=== PATIENT | male | born 1950 | race Caucasian/White ===

== ENCOUNTER 2018-02-24 08:30 | Emergency (ER) | payer OTHER ==
[2018-02-24 08:47] VITALS: BP 152/79; PULSE 72; TEMP 98.6; BMI 23.4
[2018-02-24] MEDS ORDERED: KETOROLAC TROMETHAMINE 60 MG/2 ML VIAL IM ONE (08:59)
[2018-02-24] MEDS ORDERED: KETOROLAC TROMETHAMINE 60 MG/2 ML VIAL ONE (09:01)
--- NOTE | 2018-02-24 09:07 | PDOC ---
History of Present Illness - General Chief Complaint: Pain Stated Complaint: FALL/ LT SHOULDER, ARMS PAIN Time Seen by Provider: 02/24/18 08:52 History Source: Patient Exam Limitations: No Limitations - History of Present Illness Initial Comments: 02/24/18 09:00 68-year-old male with no past medical history presented to ED for evaluation of continual and intermittent left arm and left shoulder pain. Patient states about a month ago tripped on a cable causing him to land on his left arm. Patient states seeked medical treatment and had an MRI ordered by Dr. Tolentino orthopedist who recommended physical therapy and was given a cortisone shot last week. Patient states was concerned since the pain continues and is unsure if he should go to physical therapy. Patient denies numbness but states intermittent weakness sharpshooting pain with spastic discomfort to the left forearm. Patient states is unable to perform daily activities such as tying his shoes and fine motor movement secondary to pain. Timing/Duration: intermittent Severity: moderate Associated Symptoms: reports: denies symptoms Past History - Travel Traveled outside of the country in the last 30 days: No - Past Medical History Allergies/Adverse Reactions: Allergies Allergy/AdvReac Type Severity Reaction Status Date / Time No Known Allergies Allergy Verified 02/24/18 08:42 COPD: No HTN: Yes - Surgical History Appendectomy: Yes - Suicide/Smoking/Psychosocial Hx Smoking History: Current every day smoker Have you smoked in the past 12 months: Yes Number of Cigarettes Smoked Daily: 6 Information on smoking cessation initiated: No Patient Lives Alone: No Review of Systems - Review of Systems Able to Perform ROS?: No Constitutional: No: Symptoms Reported Musculoskeletal: Yes: Joint Pain, Muscle Pain Integumentary: No: Symptoms Reported Neurological: Yes: Tingling, Weakness Endocrine: No: Symptoms Reported Hematologic/Lymphatic: No: Symptoms Reported *Physical Exam - Vital Signs Last Vital Signs Temp Pulse Resp BP Pulse Ox 98.6 F 72 17 152/79 96 02/24/18 08:42 02/24/18 08:42 02/24/18 08:42 02/24/18 08:42 02/24/18 08:42 - Physical Exam General Appearance: Yes: Nourished, Appropriately Dressed. No: Apparent Distress HEENT: positive: EOMI Neck: positive: Supple. negative: Decreased range of motion Respiratory/Chest: positive: Lungs Clear, Normal Breath Sounds. negative: Respiratory Distress, Accessory Muscle Use Cardiovascular: positive: Regular Rhythm, Regular Rate. negative: Murmur Extremity: positive: Normal Capillary Refill, Normal Inspection (no deformity no edema). negative: Normal Range of Motion (Unable to perform lateral raise or touch left hand to right shoulder), Tender Integumentary: positive: Normal Color, Warm, Moist Medical Decision Making - Medical Decision Making 02/24/18 09:13 Patient for left arm pain. Patient states took nothing for the pain but was told to follow up with physical therapy on Tuesday but canceled her appointment since he was fearful of going to physical therapy due to his pain. Patient arrives here and no acute distress. Justyna spoke to Dr. thomas II is recommending physical therapy at this time called the physical therapist's office(professional physical therapy ) and states he sent patient over upon ED discharge. Patient given Toradol will discharged. *DC/Admit/Observation/Transfer Diagnosis at time of Disposition: Upper extremity tendinopathy - Discharge Dispostion Disposition: HOME Condition at time of disposition: Good - Referrals Referrals: Jeovany Pascal MD [Staff Physician] - - Patient Instructions Printed Discharge Instructions: DI for Tendinitis, DI for Shoulder Tendinopathy Additional Instructions: At this time I do recommend taking Motrin 600 mg every 8 hours to decrease your discomfort inflammation. Please go directly to the physical therapy office as they are awaiting your arrival. Please also follow up with Dr. Pascal. - Post Discharge Activity
== END 2018-02-24 09:32 | disposition home or self-care (01) ==
LOC: JERFT 08:30
PROC: 3E0233Z Introduction of Anti-inflammatory into Muscle, Percutaneous Approach (ICD-10-PCS; principal; 2018-02-24)
DX: M65.822 Other synovitis and tenosynovitis, left upper arm (principal); F17.210 Nicotine dependence, cigarettes, uncomplicated
CPT/HCPCS: 99281-25

== ENCOUNTER 2018-03-29 09:29 | Day surgery (SDC) | payer OTHER ==
[2018-03-28 08:13] VITALS: BMI 23.0
--- NOTE | 2018-03-29 09:56 | HP ---
[facility] - Chief Complaint Chief Complaint: left shoulder pain - Past Medical History Allergies/Adverse Reactions: Allergies Allergy/AdvReac Type Severity Reaction Status Date / Time No Known Allergies Allergy Verified 03/28/18 08:17 - Current Medications Current Medications: Home Medications Medication Instructions Recorded Amlodipine Besylate 10 mg PO DAILY 03/28/18 Hydrocodone/Acetaminophen [[place] 1 each PO Q6H PRN #40 tablet MDD 4 03/29/18 5-325 Tablet] [facility] Physical Exam - Physical Examination General Appearance: Well Nourished, Well Developed, Alert & Oriented x3 ENT: Clear Lung: Normal air movement Heart: Regular rate & rhythm Extremities: Other (left shoulder- + ttp, decr rom, + neer, + chandler, nvi) Neurological: Intact, Alert, Oriented [facility] Impression/Plan - Impression/Plan Impression: left shoulder impingement Operative Procedure: left shoulder arthroscopy ZOYA GAITAN Date to be Performed: 03/29/18
[2018-03-29] MEDS ORDERED: ROPIVACAINE HCL 0.5% 30ML VIAL ONE (12:25)
[2018-03-29] MEDS ORDERED: DEXAMETHASONE SOD PHOSPHATE/PF 10 MG/ML SDV ONE (12:25)
[2018-03-29] MEDS ORDERED: ROCURONIUM BROMIDE 50 MG/5 ML VIAL ONE (12:27)
[2018-03-29] MEDS ORDERED: PROPOFOL 20 ML ONE (12:27)
[2018-03-29] MEDS ORDERED: MIDAZOLAM HCL 2 MG/2 ML SINGLE DOSE VIAL ONE ×3 (12:27)
[2018-03-29] MEDS ORDERED: KETOROLAC TROMETHAMINE 30 MG/1 ML VIAL ONE (13:18)
[2018-03-29] MEDS ORDERED: ceFAZolin SODIUM 1 GM VIAL IVPB ONE (13:40)
[2018-03-29] MEDS ORDERED: oxyCODONE HCL 5 MG TABLET PO PRN (14:44)
[2018-03-29] MEDS ORDERED: ONDANSETRON 4 MG/2 ML VIAL IVPUSH PRN (14:44)
[2018-03-29] MEDS ORDERED: LACTATED RINGERS SOLUTION 1,000 ML IV SCH (14:45)
[2018-03-29] MEDS ORDERED: NEOSTIGMINE METHYLSULFATE 0.5 MG/ML - 10 ML MDV ONE (14:51)
--- NOTE | 2018-03-29 14:58 | OP ---
Operative Note - Note: Operative Date: 03/29/18 ([facility]) Pre-Operative Diagnosis: left shoulder rct, impingement Operation: left shoulder arthroscopy with RCR, SAD Post-Operative Diagnosis: Same as Pre-op Surgeon: Von Villagran [employer] Consultant: Kash Devine Anesthesiologist/WEBSITE/BLOG EDITOR: Tyrone Gallegos Anesthesia: General Specimens Removed: shavings Estimated Blood Loss (mls): 5 Operative Report Dictated: Yes
[2018-03-29] MEDS ORDERED: ACETAMINOPHEN 1000 MG/100 ML VIAL (NON FORMULARY) IVPB ONE (15:55)
[2018-03-29] MEDS ORDERED: SEVOFLURANE 250 ML BTL ONE (16:02)
[2018-03-29] MEDS ORDERED: DESFLURANE GAS 240 ML BOTTLE IH ONE (16:02)
[2018-03-29] MEDS ORDERED: ACETAMINOPHEN INJECTION 100 ML IVPB ONE (16:06)
[2018-03-29 16:48] VITALS: BP 164/85; PULSE 61; TEMP 97.5
--- NOTE | 2018-03-30 08:23 | OP ---
DATE OF OPERATION: 03/29/2018 PREOPERATIVE DIAGNOSIS: Left shoulder rotator cuff tear and impingement syndrome; adhesive capsulitis. POSTOPERATIVE DIAGNOSIS: Left shoulder rotator cuff tear and impingement syndrome; adhesive capsulitis. PROCEDURE PERFORMED: Left shoulder arthroscopy, subacromial decompression, arthroscopic rotator cuff repair, manipulation under anesthesia. SURGEON: Sheela Donohue MD ASSISTANTS: DONNA Holcomb; DMITRI Allen ANESTHESIA: General. DRAINS: None. COMPLICATIONS: None. BLOOD LOSS: Minimal. BLOOD GIVEN: None. FLUID REPLACEMENT: 700 mL. INDICATIONS: The patient is a 68-year-old male with the preoperative diagnosis of left shoulder rotator cuff tear and impingement syndrome. In addition, the patient has some neurologic abnormality. He was supposed to see a neurologist prior to this procedure, but he did not. The appointment is set up for tomorrow, but clearly he will not be able to attend that. He has significant atrophy globally around the shoulder girdle, including significant atrophy of the supraspinatus and infraspinatus. In addition, the patient states that he has lost a tremendous amount of weight in the last year and a half. I did encourage him to have a full oncology workup. He said he already has and it was negative, but with the combination of significant atrophy around the shoulder girdle and significant weight loss, it is possible there is a large tumor pushing on these nerves. That being said, he assures me that that has already happened and that it was all negative. 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 He understands and will get this worked up later. PROCEDURE: The patient was brought to the operating room, peripheral IV placed, IV sedation given. One gram of IV Ancef was given. General anesthesia was induced. He was placed into the beach-chair position with ample padding throughout. I manipulated the left shoulder in all planes, gaining at least 30 to 40 degrees of forward flexion and abduction, as well as about 10 degrees of internal and external rotation. The left upper extremity then was prepped and draped in sterile fashion. The bony landmarks were marked out with a marking pen. Of note, the patient has significant bony prominence from significant shoulder girdle muscle atrophy. Although the humeral head was not dislocated, it was located quite anterior to its normal location. A posterior portal was established. A diagnostic glenohumeral arthroscopy was performed. The patient was seen to have a shredded labrum. Only mild grade 1 osteoarthritis of the glenoid, none of the humeral head. His rotator cuff had obvious complete full-thickness tears of the supraspinatus. There were some strings of the rotator cuff still intact. There was a lot of synovitis. This was debrided with the ArthroCare wand and the straight shaver, as was the labrum. Next our attention was turned to the subacromial space. A lateral portal was established with a spinal needle under direct visualization. A Green cannula was introduced into the subacromial space. Soft tissue bursectomy was performed. After extensive debridement with the ArthroCare wand, a large subacromial spur was identified. It was taken down with the 5.5-mm oval bur and fine tuned in reverse with the shaver. After extensive bursectomy and bony subacromial decompression, the surface of the rotator cuff was better visualized. Surprisingly, the infraspinatus not only was intact, but looked good. It seemed to be thick and felt quite stable with the back of the ArthroCare wand. The patient had a crescent-shaped tear of the anterior half of the supraspinatus, but this too looked better than expected. The area was cleaned up with the shaver. The bony bed landing point for the anchor was mildly decorticated with the shaver. Under direct visualization, 3 [place] FiberWires were passed through a SwiveLock and the SwiveLock was put down under direct visualization. There was no more room for any other FiberWires or anchors. It came down quite nicely. The rotator cuff moved as a unit with the humeral head. Overall, the rotator cuff looked great. The area was copiously irrigated and washed out. Final photographs were taken. The arthroscopy saline was removed. The arthroscopy portals were closed with 3-0 nylon sutures. The area was then washed and dried, and covered with an Aquacel dressing. The patient was extubated and brought down out of the beach-chair position. He was stable throughout the case. There were no complications. Blood loss was very minimal. He was brought to the ambulatory recovery room in stable condition. SHEELA DONOHUE M.D. [id number]
--- NOTE | 2018-03-31 17:03 | PATH ---
Surgical Pathology Report Patient Name: LISHA BROOKS [facility]. Rec. #: [id number] /Age/Gender: 1950 (Age: 68) / M Account: [id number] Location: [facility] SURGICAL Taken: 03/29/2018 Received: 03/30/2018 Reported: 03/31/2018 Physicians: Von Villagran M.D. Specimen(s) Received LEFT SHOULDER SHAVINGS Clinical History Impingement syndrome left shoulder Final Diagnosis SHOULDER SHAVINGS, LEFT, ARTHROSCOPY AND ROTATOR CUFF REPAIR: FRAGMENTS OF BENIGN CARTILAGE, DENSE FIBROCONNECTIVE TISSUE, ADIPOSE TISSUE, BONE, SYNOVIUM, AND SKELETAL MUSCLE. Electronically Signed Lennie Majano M.D. Gross Description Received in formalin, labeled "left shoulder shavings," is a 4.4 x 4.2 x 0.5 cm. aggregate of mark-yellow soft tissue fragments. 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 03/30/201803/30/2018
== END 2018-03-29 17:25 | disposition home or self-care (01) ==
LOC: JASU-SURG 09:29
PROVIDERS: ATTEND Orthopaedic Surgery
PROC: 0LQ24ZZ Repair Left Shoulder Tendon, Percutaneous Endoscopic Approach (ICD-10-PCS; 2018-03-29)
PROC: 0RNKXZZ Release Left Shoulder Joint, External Approach (ICD-10-PCS; 2018-03-29)
PROC: 0RNK4ZZ Release Left Shoulder Joint, Percutaneous Endoscopic Approach (ICD-10-PCS; principal; 2018-03-29 12:00)
DX: M75.42 Impingement syndrome of left shoulder (principal); M75.102 Unspecified rotator cuff tear or rupture of left shoulder, not specified as traumatic; M75.02 Adhesive capsulitis of left shoulder
CPT/HCPCS: 88304-TC; 94760; J0131

== ENCOUNTER 2018-05-05 06:52 | Observation (INO) | payer OTHER ==
[2018-05-05 07:24] VITALS: BP 138/92; PULSE 40; TEMP 98; BMI 22.3
--- NOTE | 2018-05-05 08:22 | PDOC ---
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 He states he is currently under the care of a neurologist for limb weakness that has not yet been fully explained (particularly in his left arm). The fall from bed was mechanical, however. No LOC, no head injury. He states that he feels weak, fatigued, and having difficulty getting up, which is not his baseline. Denies SOB, cp, leg swelling. Past History - Past Medical History Allergies/Adverse Reactions: Allergies Allergy/AdvReac Type Severity Reaction Status Date / Time No Known Allergies Allergy Verified 05/05/18 07:28 Home Medications: Ambulatory Orders Amlodipine Besylate 10 mg PO DAILY 03/28/18 Hydrocodone/Acetaminophen [[place] 5-325 Tablet] 1 each PO Q6H PRN #40 tablet MDD 4 03/29/18 Anemia: No Asthma: No Cancer: No Cardiac Disorders: No CVA: No COPD: No CHF: No Dementia: No Diabetes: No GI Disorders: No Disorders: No HTN: Yes Hypercholesterolemia: No Liver Disease: No Seizures: No Thyroid Disease: No - Surgical History Appendectomy: Yes - Suicide/Smoking/Psychosocial Hx Smoking History: Current every day smoker Have you smoked in the past 12 months: Yes Number of Cigarettes Smoked Daily: 10 Information on smoking cessation initiated: No 'Breaking Loose' booklet given: 03/29/18 Hx Alcohol Use: No Drug/Substance Use Hx: No Substance Use Type: Alcohol Hx Substance Use Treatment: No Review of Systems - Review of Systems Able to Perform ROS?: Yes Comments:: GENERAL/CONSTITUTIONAL: No fever or chills. +Weakness. HEAD, EYES, EARS, NOSE AND THROAT: No change in vision. No ear pain or discharge. No sore throat. CARDIOVASCULAR: No chest pain or shortness of breath. RESPIRATORY: No cough, wheezing, or hemoptysis. GASTROINTESTINAL: No nausea, vomiting, diarrhea or constipation. GENITOURINARY: No dysuria, frequency, or change in urination. MUSCULOSKELETAL: No joint or muscle swelling or pain. No neck or back pain. SKIN: No rash NEUROLOGIC: No headache, vertigo, loss of consciousness, or change in sensation. +LUE weakness. ENDOCRINE: No increased thirst. No abnormal weight change. HEMATOLOGIC/LYMPHATIC: No anemia, easy bleeding, or history of blood clots. ALLERGIC/IMMUNOLOGIC: No hives or skin allergy. *Physical Exam - Vital Signs Last Vital Signs Temp Pulse Resp BP Pulse Ox 98.0 F 40 L 18 138/92 99 05/05/18 07:21 05/05/18 07:21 05/05/18 07:21 05/05/18 07:21 05/05/18 07:21 - Physical Exam Comments: GENERAL: Awake, alert, and fully oriented, in no acute distress HEAD: No signs of trauma EYES: PERRLA, EOMI, sclera anicteric, conjunctiva clear ENT: Auricles normal inspection, hearing grossly normal, nares patent, oropharynx clear without exudates. Moist mucosa NECK: Normal ROM, supple, no lymphadenopathy, JVD, or masses LUNGS: Breath sounds equal, clear to auscultation bilaterally. No wheezes, and no crackles HEART: Regular rate and rhythm, normal S1 and S2, no murmurs, rubs or gallops ABDOMEN: Soft, nontender, normoactive bowel sounds. No guarding, no rebound. No masses EXTREMITIES: Normal range of motion, no edema. No clubbing or cyanosis. No cords, erythema, or tenderness NEUROLOGICAL: Cranial nerves II through XII grossly intact. Normal speech. Sensation intact. Strength 5/5 RUE, BLE. LUE with no effort against gravity ( chronic per patient). SKIN: Warm, Dry, normal turgor, no rashes or lesions noted. ED Treatment Course - LABORATORY CBC & Chemistry Diagram: 05/05/18 08:47 05/05/18 08:47 Medical Decision Making - Medical Decision Making 05/05/18 11:34 Pt states he does not have a primary care, sees Dr. Oglesby primarily. Case d/w Dr. Oglesby via phone- he states patient is currently being evaluated by neuro as an outpatient, there is suspicion that he may have ALS. We discussed his bradycardia on ED admission, which may explain the new weakness and fatigue. Requested cardiology Dr. Hunter. Also requested admission by Dr. Ramirez. 05/05/18 11:55 Pt accepted for admission by Dr. Ramirez. *DC/Admit/Observation/Transfer Diagnosis at time of Disposition: Bradycardia - Discharge Dispostion Disposition: ELOPED Condition at time of disposition: Stable Decision to Admit order: Yes - Referrals - Patient Instructions - Post Discharge Activity
[2018-05-05 08:56] LABS: BASO % 1.1 % (0-2.0); HEMATOCRIT 39.4 % (35.4-49); HEMOGLOBIN 12.9 GM/dL (11.7-16.9); LYMPH % 15.5 % (8-40); MCH 30.2 pg (25.7-33.7); MCHC 32.8 g/dl (32.0-35.9); MEAN CELL VOLUME 92.1 fl (80-96); MEAN PLT VOLUME 9.3 fl (7.5-11.1); MONO % 8.4 % (3.8-10.2); PLATELET COUNT 194 K/MM3 (134-434); RBC 4.28 M/mm3 (4.00-5.60); RDW 14.5 % (11.9-15.9); WHITE BLOOD COUNT 7.2 K/mm3 (4.0-10.0)
[2018-05-05 09:16] LABS: INR 1.11 (0.83-1.09); PROTHROMBIN TIME (PATIENT) 13.1 SEC (9.7-13.0)
--- NOTE | 2018-05-05 09:16 | EKG ---
Test Reason : Blood Pressure : / mmHG Vent. Rate : 068 BPM Atrial Rate : 068 BPM P-R Int : 126 ms QRS Dur : 116 ms QT Int : 418 ms P-R-T Axes : 053 -72 096 degrees QTc Int : 444 ms SINUS RHYTHM WITH OCCASIONAL PREMATURE VENTRICULAR COMPLEXES LEFT ANTERIOR FASCICULAR BLOCK LEFT VENTRICULAR HYPERTROPHY WITH QRS WIDENING AND REPOLARIZATION ABNORMALITY CANNOT RULE OUT SEPTAL INFARCT , AGE UNDETERMINED ABNORMAL ECG Confirmed by NAHUN AVELAR, ROSY ([id number]) on 05/05/2018 9:15:43 AM Referred By: Confirmed By:ROSY GARNICA MD
[2018-05-05 09:33] LABS: ALBUMIN 3.4 g/dl (3.4-5.0); ALK PHOS 86 U/L (45-117); ANION GAP 7 MMOL/L (8-16); BILIRUBIN,TOTAL 0.4 mg/dL (0.2-1); BLOOD UREA NITROGEN 31 mg/dL (7-18); CALCIUM 8.7 mg/dL (8.5-10.1); CHLORIDE 107 mmol/L (98-107); CO2 27 mmol/L (21-32); CREATININE 1.3 mg/dL (0.55-1.3); GLUCOSE,RANDOM 87 mg/dL (74-106); POTASSIUM 4.5 mmol/L (3.5-5.1); SGOT/AST 55 U/L (15-37); SGPT/ALT 47 U/L (13-61); SODIUM 141 mmol/L (136-145); TOT PROT 6.7 g/dl (6.4-8.2)
[2018-05-05] MEDS ORDERED: ASPIRIN COATED 81 MG TABLET.EC PO SCH (17:45)
--- NOTE | 2018-05-05 17:45 | CON.CARD ---
Consult Consult Specialty:: cardio - History of Present Illness Chief Complaint: s/p fall History of Present Illness: 68 M here for fall. lost his balance when walking in house and fell to floor. denies presyncope or LOC. has fallen 2 other times in past 4 mo, seeing neuro x 2 with dx uncertain per pt and dr cain (dx of ALS being entertained). notes he's had sob at times in the past 4 months--AT REST and sometimes also with exertion. no chest pain. takes a med for bp he says, 10mg--? name denies h/o CAD, CHF - Alcohol/Substance Use Hx Alcohol Use: No - Smoking History Smoking history: Current every day smoker Have you smoked in the past 12 months: Yes Aproximately how many cigarettes per day: 10 Home Medications - Allergies Allergies/Adverse Reactions: Allergies Allergy/AdvReac Type Severity Reaction Status Date / Time No Known Allergies Allergy Verified 05/05/18 07:28 - Home Medications Home Medications: Ambulatory Orders Amlodipine Besylate 10 mg PO DAILY 03/28/18 Hydrocodone/Acetaminophen [[place] 5-325 Tablet] 1 each PO Q6H PRN #40 tablet MDD 4 03/29/18 Vital Signs: Vital Signs Temperature 98.0 F 05/05/18 07:21 Pulse Rate 40 L 05/05/18 07:21 Respiratory Rate 18 05/05/18 07:21 Blood Pressure 138/92 05/05/18 07:21 O2 Sat by Pulse Oximetry (%) 99 05/05/18 07:21 - Other Data Labs, Other Data: CBC, BMP 05/05/18 08:47 05/05/18 08:47 INR, PTT INR 1.11 (0.83-1.09) H 05/05/18 08:47 Troponin, BNP 05/05/18 08:47 Troponin I 0.30 H Troponin, BNP 05/05/18 08:47 Troponin I 0.30 H Laboratory Tests 05/05/18 05/05/18 08:47 08:47 WBC 7.2 Hgb 12.9 Plt Count 194 Sodium 141 Potassium 4.5 Carbon Dioxide 27 BUN 31 H Creatinine 1.3 AST 55 H ALT 47 Troponin I 0.30 H Assessment/Plan ECG 05/05 (8:32): NSR, PVCs. 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 nonsp ST-T lateral leads (no old) 05/05 (8:53): NSR with APCs. o/w no change CXR: clear lungs/pleura tele (in ER) reviewed: NSR, no pause/bradycardia/heart block s/p fall: -describes loss of balance. in setting of ongoing neuro w/u and ? ALS dx per dr cain -check orthostatics -HR 40 in triage, this episode does not sound like bradyarrhythmia. ? on bb at home--need clarify home med regimen -HR currently normal (60s), ECG normal -TSH -tele thus far normal, will continue elev trop: -indeterminate range (0.3), no ischemic sx's, no ischemia on ECG -? hypotensive when fell at home--check orthostatics -serial labs for trend -aspirin 81 for now -atypical sob sx's at rest or activity, chronic/stable for few months. no signs chf, CXR clear. sx does not sound like ischemia--if trop trend flat, and no new sx's here, will defer stress test and outpt f/u with dr cain rec'd HTN: -bp controlled -observe, cont home meds (no AVN blockers for now)
--- NOTE | 2018-05-05 17:47 | HP ---
Admitting History and Physical - Primary Care Physician PCP: Grant Oglesby - Admission History of Present Illness: pt seen / examined in er -- per request of Dr. Oglesby Discussed with er Physician 68 M here for fall. lost his balance when walking in house and fell to floor. denies any cp/sob/ palpitation before that pt being followed by neuro at [facility] for falls-- possible ALS PT ALSO REPORTS FELT SOB AT HOME. Pt seen/ examined in er exam ok / ekg ok but troponin +ve pt denies cp. History Source: Patient Limitations to Obtaining History: No Limitations - Past Medical History Cardiovascular: Yes: HTN - Smoking History Smoking history: Current every day smoker Have you smoked in the past 12 months: Yes Aproximately how many cigarettes per day: 10 - Alcohol/Substance Use Hx Alcohol Use: No Home Medications - Allergies Allergies/Adverse Reactions: Allergies Allergy/AdvReac Type Severity Reaction Status Date / Time No Known Allergies Allergy Verified 05/05/18 07:28 - Home Medications Home Medications: Ambulatory Orders Amlodipine Besylate 10 mg PO DAILY 03/28/18 Hydrocodone/Acetaminophen [[place] 5-325 Tablet] 1 each PO Q6H PRN #40 tablet MDD 4 03/29/18 Review of Systems Findings/Remarks: see [place] Physical Examination Vital Signs: Vital Signs Temperature 98.0 F 05/05/18 07:21 Pulse Rate 40 L 05/05/18 07:21 Respiratory Rate 18 05/05/18 07:21 Blood Pressure 138/92 05/05/18 07:21 O2 Sat by Pulse Oximetry (%) 99 05/05/18 07:21 Constitutional: Yes: No Distress, Anxious Eyes: Yes: Conjunctiva Clear Neck: Yes: Supple Cardiovascular: Yes: Regular Rate and Rhythm Respiratory: Yes: CTA Bilaterally Gastrointestinal: Yes: Soft Extremities: Yes: Other Edema: No Neurological: Yes: Alert, Other (left side weakness-- old per pt) Psychiatric: Yes: Other (anxious) Labs: CBC, BMP 05/05/18 08:47 05/05/18 08:47 Imaging - Results Chest X-ray: Report Reviewed EKG: Report Reviewed Problem List - Problems (1) Fall Code(s): W19.XXXA - UNSPECIFIED FALL, INITIAL ENCOUNTER Qualifiers: Encounter type: initial encounter Qualified Code(s): W19.XXXA - Unspecified fall, initial encounter (2) Troponin level elevated Code(s): R74.8 - ABNORMAL LEVELS OF OTHER SERUM ENZYMES Assessment/Plan pt need to admit to tele/ under observation need to do serial cms discussed with cardiology pt wants to sign out ama strongly advised not to do so -- pt says will thing about it discussed with cardiology also
--- NOTE | 2018-05-10 15:19 | EKG ---
Test Reason : Blood Pressure : / mmHG Vent. Rate : 067 BPM Atrial Rate : 067 BPM P-R Int : 132 ms QRS Dur : 114 ms QT Int : 428 ms P-R-T Axes : 053 -71 088 degrees QTc Int : 452 ms SINUS RHYTHM WITH PREMATURE SUPRAVENTRICULAR COMPLEXES INCOMPLETE RIGHT BUNDLE BRANCH BLOCK LEFT ANTERIOR FASCICULAR BLOCK LEFT VENTRICULAR HYPERTROPHY WITH REPOLARIZATION ABNORMALITY CANNOT RULE OUT SEPTAL INFARCT (CITED ON OR BEFORE 05-MAY-2018) ABNORMAL ECG WHEN COMPARED WITH ECG OF 05-MAY-2018 08:32, PREMATURE VENTRICULAR COMPLEXES ARE NO LONGER PRESENT PREMATURE SUPRAVENTRICULAR COMPLEXES ARE NOW PRESENT QUESTIONABLE CHANGE IN INITIAL FORCES OF SEPTAL LEADS Confirmed by LATASHA COBLY MD ([id number]) on 05/10/2018 3:19:00 PM Referred By: Confirmed By:LATASHA COLBY MD
== END 2018-05-05 18:30 | disposition left against medical advice (07) ==
LOC: JER 06:52 → JERBED 11:55 → UNDOADMOB 11:55 → INTOOBSV 11:55 → JERBED 17:42
PROVIDERS: ADMIT Internal Medicine; ATTEND Internal Medicine
DX: R77.8 Other specified abnormalities of plasma proteins (principal); R00.2 Palpitations; I10 Essential (primary) hypertension; F17.210 Nicotine dependence, cigarettes, uncomplicated; W18.39XA Other fall on same level, initial encounter; Z91.81 History of falling; Y93.01 Activity, walking, marching and hiking; Y92.009 Unspecified place in unspecified non-institutional (private) residence as the place of occurrence of the external cause
CPT/HCPCS: 36415; 71045-TC-FY; 80053; 82550; 82553; 84484; 85025; 85610; 93005; 93010; 99283-25; G0378

== ENCOUNTER 2018-06-06 12:47 | Inpatient (IN) | payer OTHER ==
[2018-06-06] MEDS ORDERED: SODIUM CHLORIDE 1,000 ML IV STA (13:45)
[2018-06-06 14:36] LABS: BASO % 0.8 % (0-2.0); EOS % 0.1 % (0-4.5); HEMATOCRIT 38.2 % (35.4-49); HEMOGLOBIN 13.1 GM/dL (11.7-16.9); LYMPH % 18.7 % (8-40); MCH 30.7 pg (25.7-33.7); MCHC 34.2 g/dl (32.0-35.9); MEAN CELL VOLUME 89.8 fl (80-96); MEAN PLT VOLUME 9.8 fl (7.5-11.1); MONO % 6.3 % (3.8-10.2); NEUT % 74.1 % (42.8-82.8); PLATELET COUNT 245 K/MM3 (134-434); RBC 4.25 M/mm3 (4.00-5.60); RDW 14.6 % (11.9-15.9); WHITE BLOOD COUNT 7.6 K/mm3 (4.0-10.0)
--- NOTE | 2018-06-06 15:00 | PDOC ---
History of Present Illness - General Chief Complaint: Weakness Stated Complaint: WEAKNESS Time Seen by Provider: 06/06/18 13:08 History Source: Patient Exam Limitations: No Limitations - History of Present Illness Initial Comments: 06/06/18 14:55 68-year-old male presents to emergency room with complaints of progressive weakness. Patient has fallen approximately 2 times over the past 2 weeks and went to [place] ED, performed a head CT and collected labs which were -. Upon discharge, a SW prompted a Homecare consultation and this morning when the staff arrived to the home, patient was found to be underweight, fragile, and concerning for progressive ALS which she was recently diagnosed with. Patient was seen by take off back in December but then went to see a neurologist and jenelle Chinchilla who recommended ALS specialist at [facility] but patient did not get to that point of having a consultation. Patient denies chest pain abdominal pain, fever or chills. Patient does state has difficulty swallowing food and is only been eating tuna fish for the past few weeks and drinking minimal fluids. Timing/Duration: getting worse Severity: moderate Associated Symptoms: reports: loss of appetite, weakness Past History - Travel Traveled outside of the country in the last 30 days: No - Past Medical History Allergies/Adverse Reactions: Allergies Allergy/AdvReac Type Severity Reaction Status Date / Time No Known Allergies Allergy Verified 06/06/18 13:12 Home Medications: Ambulatory Orders Aspirin [ASA -] 81 mg PO DAILY 06/06/18 Atorvastatin Ca [Lipitor] 20 mg PO DAILY 06/06/18 Carvedilol [Coreg -] 3.125 mg PO BID 06/06/18 Hydrochlorothiazide [Hctz -] 25 mg PO DAILY 06/06/18 Lisinopril [Prinivil] 10 mg PO DAILY 06/06/18 Prednisone [Deltasone] 40 mg PO DAILY 06/06/18 Anemia: No Asthma: No Cancer: No Cardiac Disorders: No CVA: No COPD: No CHF: No Dementia: No Diabetes: No GI Disorders: No Disorders: No HTN: Yes Hypercholesterolemia: Yes Liver Disease: No Seizures: No Thyroid Disease: No Other medical history: ALS - Surgical History Appendectomy: Yes - Suicide/Smoking/Psychosocial Hx Smoking History: Unknown if ever smoked Have you smoked in the past 12 months: No Number of Cigarettes Smoked Daily: 10 'Breaking Loose' booklet given: 03/29/18 Hx Alcohol Use: No Drug/Substance Use Hx: No Substance Use Type: Alcohol Hx Substance Use Treatment: No Patient Lives Alone: Yes Lives with/in: lives alone Review of Systems - Review of Systems Able to Perform ROS?: Yes Constitutional: Yes: Weakness, Unintentional Wgt. Loss HEENTM: Yes: Difficulty Swallowing. No: Blurred Vision, Tearing Respiratory: No: Symptoms reported Cardiac (ROS): No: Symptoms Reported ABD/GI: Yes: Poor Appetite, Poor Fluid Intake : No: Symptoms Reported Musculoskeletal: Yes: Muscle Weakness Integumentary: No: Symptoms Reported Neurological: Yes: Weakness Endocrine: No: Symptoms Reported Hematologic/Lymphatic: No: Symptoms Reported *Physical Exam - Vital Signs Last Vital Signs Temp Pulse Resp BP Pulse Ox 97.9 F 67 16 147/74 97 06/06/18 13:02 06/06/18 13:02 06/06/18 13:02 06/06/18 13:02 06/06/18 13:02 - Physical Exam General Appearance: Yes: Cachetic, Thin. No: Apparent Distress HEENT: positive: EOMI, HERMINIA, TMs Normal, Pharynx Normal (dry), Muffled/Hoarse voice. negative: Pale Conjunctivae Neck: positive: Supple Respiratory/Chest: positive: Lungs Clear, Normal Breath Sounds. negative: Respiratory Distress, Accessory Muscle Use Cardiovascular: positive: Regular Rhythm, Regular Rate. negative: Murmur Gastrointestinal/Abdominal: positive: Soft. negative: Tenderness Extremity: positive: Normal Capillary Refill. negative: Pedal Edema Integumentary: positive: Dry, Warm Neurologic: positive: Normal Mood/Affect. negative: Motor Strength 5/5 (left upper arm flaccid) Heart Score/ECG Review - History History: Slightly suspicious - Electrocardiogram EKG: Normal - Age Age: >/= 65 - Risk Factors Based on the list above the patient has:: 1-2 risk factors - Troponin Troponin: 1-3x normal limit (Rate 71 sinus rhythm with PVC LVH and repolarization abnormality. Unchanged from previous noted April 2018) - Score Heart Score - Total: 4 - ECG Intrepretation Rhythm: Regular Rhythm ED Treatment Course - LABORATORY CBC & Chemistry Diagram: 06/06/18 14:12 06/06/18 14:12 - ADDITIONAL ORDERS Additional order review: 06/06/18 14:12 RBC 4.25 MCV 89.8 MCHC 34.2 RDW 14.6 MPV 9.8 Neutrophils % 74.1 Lymphocytes % 18.7 D Monocytes % 6.3 Eosinophils % 0.1 D Basophils % 0.8 - RADIOLOGY Radiology Studies Ordered: Category Date Time Status CHEST X-RAY PORTABLE* [RAD] Stat Radiology 06/06/18 13:44 Ordered - Medications Given in the ED: ED Medications Discontinued Medications Generic Name Dose Route Start Last Admin Trade Name Freq PRN Reason Stop Dose Admin Sodium Chloride 1,000 mls @ 1,000 mls/hr 06/06/18 13:45 06/06/18 14:32 Normal Saline - IV 06/06/18 14:44 1,000 mls/hr ASDIR STA Administration Medical Decision Making - Medical Decision Making 06/06/18 14:59 Chief complaint: Progressive weakness and loss of appetite and weight recent diagnosis of ALS Exam, dry-appearing, difficulty forming words and sounds secondary to straining , flaccid left upper arm, noticeable rapid weight loss Plan: Consult the Dr. Valdez, labs, chest x-ray, urine, IV fluids, and will require admission 06/06/18 15:[address] Valdez who states to admit patient and will consult. Case discussed with Dr. Chiqiuta Lopez who admits Dr. Moreno's patients and accepted to [facility] inpatient *DC/Admit/Observation/Transfer Diagnosis at time of Disposition: Weakness, ALS (amyotrophic lateral sclerosis), Weight loss, unintentional - Discharge Dispostion Decision to Admit order: Yes - Referrals - Patient Instructions - Post Discharge Activity
[2018-06-06 15:13] LABS: ALBUMIN 3.6 g/dl (3.4-5.0); ALK PHOS 81 U/L (45-117); ANION GAP 13 MMOL/L (8-16); BILIRUBIN,TOTAL 0.6 mg/dL (0.2-1); BLOOD UREA NITROGEN 54 mg/dL (7-18); CHLORIDE 100 mmol/L (98-107); CO2 28 mmol/L (21-32); CREATININE 1.1 mg/dL (0.55-1.3); GLUCOSE,RANDOM 90 mg/dL (74-106); MAGNESIUM 2.1 mg/dL (1.8-2.4); POTASSIUM 3.9 mmol/L (3.5-5.1); SGOT/AST 59 U/L (15-37); SGPT/ALT 52 U/L (13-61); SODIUM 141 mmol/L (136-145)
[2018-06-06 15:23] LABS: URINE APPEARANCE CLEAR; URINE BILIRUBIN NEGATIVE (<2.0 mg/dL); URINE COLOR LTYELLOW; URINE GLUCOSE (UA) NEGATIVE (NEGATIVE); URINE KETONE NEGATIVE (NEGATIVE); URINE LEUK ESTERASE NEGATIVE (NEGATIVE); URINE NITRITE NEGATIVE (NEGATIVE); URINE PROTEIN 1+ (NEGATIVE); URINE UROBILINOGEN NEGATIVE mg/dL (0.2-1.0)
[2018-06-06 15:30] LABS: EPI CELLS RARE /HPF (FEW); URINE HYALINE CAST 1 /lpf; URINE MUCUS RARE
--- NOTE | 2018-06-06 15:30 | EKG ---
Test Reason : Blood Pressure : / mmHG Vent. Rate : 071 BPM Atrial Rate : 071 BPM P-R Int : 130 ms QRS Dur : 116 ms QT Int : 428 ms P-R-T Axes : 058 -71 099 degrees QTc Int : 465 ms SINUS RHYTHM WITH PREMATURE SUPRAVENTRICULAR COMPLEXES LEFT ANTERIOR FASCICULAR BLOCK LEFT VENTRICULAR HYPERTROPHY WITH QRS WIDENING AND REPOLARIZATION ABNORMALITY SEPTAL INFARCT (CITED ON OR BEFORE 05-MAY-2018) LATERAL INFARCT , AGE UNDETERMINED ABNORMAL ECG Confirmed by Rinku Santos MD ([id number]) on 06/06/2018 3:29:44 PM Referred By: Confirmed By:Rinku Santos MD
[2018-06-06] MEDS ORDERED: ALBUTEROL SO4 0.083% IH SOL 2.5 MG/3 ML VIAL.NEB. NEB ONE (16:56)
[2018-06-07] MEDS ORDERED: SODIUM CHLORIDE FOR INHALATION 3 ML VIAL.NEB IH PRN (11:45)
[2018-06-07 14:58] VITALS: BMI 18.2
--- NOTE | 2018-06-07 16:26 | CONS ---
DATE OF CONSULTATION: 06/08/2018 REFERRING PHYSICIAN: Chiquita Lopez MD The patient is a 68-year-old male, past medical history of initially diagnosed ALS, apparently was diagnosed in December, at the time was referred in ALS specialist clinic but did not go for followup. Admitted to [facility] secondary to generalized weakness, falls at home, and difficulty eating and drinking fluids. The patient states that recently he is getting progressively more dysphagic, difficulty swallowing, as well as getting very short of breath with talking. He also complains of lower extremity weakness to the point where he has recently had multiple falls. He has a history of smoking, quit a few years ago. 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 He also complains of a 50-pound weight loss over the past few months. Past medical history, again, includes hypertension, hypercholesterolemia, ALS. REVIEW OF SYSTEMS: Positive shortness of breath, positive dysphagia, positive generalized weakness, positive weight loss. Current medications include Prinivil, prednisone, Coreg, Lipitor, aspirin, Protonix, normal saline, and hydrochlorothiazide. PHYSICAL EXAMINATION: General: The patient is a cachectic male, awake, alert, and dyspneic. Vital Signs: He is currently afebrile. Blood pressure is 171/72. Respiratory rate 18. O2 saturation is 97% on 2 L. HEENT: Normocephalic, atraumatic. Neck: Supple. Heart: Regular, S1, S2. Chest: Diminished breath sounds bilaterally. Abdomen: Soft. Bowel sounds are positive. Extremities: No cyanosis, edema. LABORATORY DATA: BUN 54, creatinine 1.1, CK is 526, MB fraction 19, AST 59. Chest x-ray: No infiltrates, no effusions. IMPRESSION: 1. Weakness, shortness of breath. Weakness secondary to ALS, progressive. 2. Hypertension. 3. Hyperlipidemia. PLAN: Neuro evaluation, O2, noninvasive positive pressure ventilation at night as well as p.r.n. Monitor peak flow, vital capacity, NIF. Monitor blood pressure. AMOS QUINONES M.D. ANTONIO/[id number] MTDD
--- NOTE | 2018-06-07 16:32 | CONSULT ---
Admitting History and Physical - Primary Care Physician PCP: Chiquita Lopez - Admission History of Present Illness: Per EMR: 68-year-old male presents to emergency room with complaints of progressive weakness. Patient has fallen approximately 2 times over the past 2 weeks and went to [place] ED, performed a head CT and collected labs which were -. Upon discharge, a SW prompted a Homecare consultation and this morning when the staff arrived to the home, patient was found to be underweight, fragile, and concerning for progressive ALS which she was recently diagnosed with. Patient was seen by take off back in December but then went to see a neurologist and jenelle Chinchilla who recommended ALS specialist at [facility] but patient did not get to that point of having a consultation. Patient denies chest pain abdominal pain, fever or chills. Patient does state has difficulty swallowing food and is only been eating tuna fish for the past few weeks and drinking minimal fluids. Timing/Duration: getting worse Severity: moderate Associated Symptoms: reports: loss of appetite, weakness Selected Entries 06/07/18 06/07/18 06:00 15:59 Breakfast 50% Lunch 100% Temperature 97.4 F L 97.9 F Laboratory Tests 06/06/18 14:12 WBC 7.6 Known to me since 04/25/18; seen for out pt MBS History Source: Patient, Medical Record Limitations to Obtaining History: Clinical Condition (memory seems impaired) - Past Medical History Cardiovascular: Yes: HTN - Smoking History Smoking history: Unknown if ever smoked Have you smoked in the past 12 months: No Aproximately how many cigarettes per day: 10 - Alcohol/Substance Use Hx Alcohol Use: No - Social History Usual Living Arrangement: Yes: Alone History - Admission Reason For Visit: AMYOTROPHIC LATERAL SCLEROSIS - Diagnostics X-ray: Report Reviewed - General Mental Status: Alert and Oriented, Awake and Alert, Able to Follow Commands, Forgetful Attention: Intact Ability to Follow Directions: Good Head/Neck Control: Fair - Hearing Hearing: Functional Hearing: Normal Hearing Aide: No Speech Evaluation - Communication Primary Language: YI Communication: Yes: Within Normal Limits Oral Expression Ability: Yes: Mild Impairment - Speech Production Able to Make Needs Known: Yes: Mildly Impaired Intelligibility: Yes: Mildly Impaired - Speech Characteristics Voice Loudness: Mildly Soft/Quiet Voice Pitch: Yes: Normal Voice Phonatory-based Quality: Yes: Dysphonia (mild. Weak, unprotective cough.) Speech Clarity: < 100% Nasal Resonance: Normal Articulation: Yes: Precise Rate of Speech: Intact - Language/Auditory Comprehension Follows: Yes: 2 Stage Simple Commands - Language/Verbal Expression Able to Respond to Simple Queries: Yes: WNL Able to Communicate Wants and Needs: Yes: WNL Functional Communication Status: Yes: WNL - Swallow Evaluation/Bedside Assessment Current Nutritional Intake: Dysphagia Minced, Thin Liquids Oral Secretions: Yes: WFL (expectorates thick white phlegm) Dentition: Yes: Adequate Facial Symmetry at Rest: Symmetrical Facial Symmetry on Retraction: Symmetrical Facial Movement: Controlled Against Resistance Opening: Normal Against Resistance Closing: Normal Pucker Lips: Normal Smile: Normal Lingual Movement: Normal, Symmetric Lingual Speed of Movement: Normal Lingual Movement Strgth Against Opposition: Reduced (mild?) Lingual Movement Characteristics: Normal Velopharyngeal Movement: Normal Laryngeal Elevation: Impaired Laryngeal Movement: Reduced Excursion, Labored,delay initiation, Reduced Velocity Rate of Intake: WFL Bolus Size: Small Labial Seal: WFL Chewing: Impaired Oral Prep Time: Increased A-P Transit: Impaired Pocketing: None Timing of Swallow: Delayed Coughing/Throat Clear: Yes (intermittent on thin liquid. c/o stasis with Ensure. Weak,unprotectivecough) Change in Voice: No Recommendations - Speech Evaluation, Impression/Plan Impression: Pt with dx of ALS, seen for out pt MBS on 04/25/18, which he does not recall. 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 Significant weight loss. Suspect increase in severity of dysphagia with increased pharyngeal residue and intermittent aspiration. Pt lives alone. - Disposition Discharge to: Longterm Facility - Dysphagia Impressions/Plan Swallowing Skills: Impaired Dysphagia Impressions: Mild Impairment, Moderate Impairment, Suspect Aspiration *Silent aspiration: cannot be R/O at bedside Dysphagia Treatment Plan: Small Bites, Chin Tuck/Down, 1/2 tsp. at a time, Elevate HOB during feed, Other (2 hard swallows per half tsp) Recommendations: Neuro Consult, Palliative Care (Pt is a full code. What are pt' s end of life wishes?), Other (Consider PEG insertion to supplem,ent PO intake.) - Recommendations Diet Consistency: Dysphagia Pureed (extra gravy. Alternate with sip of liquid.) Medication Administration: Crushed with applesauce Liquids: Thruston Thick, Other (Free water protocol- Mouthcare followed by careful sips of thin water b/n meals.) Supplement: Other (Ensure compact 4 times daily)
--- NOTE | 2018-06-07 17:38 | HP ---
Admitting History and Physical - Primary Care Physician PCP: Grant Oglesby - Admission Chief Complaint: weakness History of Present Illness: ER HISTORY 06/06/18 14:55 68-year-old male presents to emergency room with complaints of progressive weakness. Patient has fallen approximately 2 times over the past 2 weeks and went to [place] ED, performed a head CT and collected labs which were -. Upon discharge, a SW prompted a Homecare consultation and this morning when the staff arrived to the home, patient was found to be underweight, fragile, and concerning for progressive ALS which she was recently diagnosed with. Patient was seen by take off back in December but then went to see a neurologist and jenelle Chinchilla who recommended ALS specialist at [facility] but patient did not get to that point of having a consultation. Patient denies chest pain abdominal pain, fever or chills. Patient does state has difficulty swallowing food and is only been eating tuna fish for the past few weeks and drinking minimal fluids. Pt seen by me on the floors- Noted previous MBS done here in Hospital , PFT He has SOB on ambulation, no cough or chest pain. Progresive weight loss. 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 He has left arm weakness for 8 weeks . Was in [facility] 3 days ago for SOB-- was sent home with PO prednisone and inhalers. He lives alone, no family, has frequent falls. History Source: Patient, Transfer Record Limitations to Obtaining History: No Limitations - Past Medical History Cardiovascular: Yes: HTN - Smoking History Smoking history: Unknown if ever smoked Have you smoked in the past 12 months: No Aproximately how many cigarettes per day: 10 - Alcohol/Substance Use Hx Alcohol Use: No Home Medications - Allergies Allergies/Adverse Reactions: Allergies Allergy/AdvReac Type Severity Reaction Status Date / Time No Known Allergies Allergy Verified 06/06/18 13:12 - Home Medications Home Medications: Ambulatory Orders Aspirin [ASA -] 81 mg PO DAILY 06/06/18 Atorvastatin Ca [Lipitor] 20 mg PO DAILY 06/06/18 Carvedilol [Coreg -] 3.125 mg PO BID 06/06/18 Hydrochlorothiazide [Hctz -] 25 mg PO DAILY 06/06/18 Lisinopril [Prinivil] 10 mg PO DAILY 06/06/18 Prednisone [Deltasone] 40 mg PO DAILY 06/06/18 Review of Systems - Review of Systems Constitutional: reports: Weakness Respiratory: reports: SOB Physical Examination Vital Signs: Vital Signs Temperature 97.9 F 06/07/18 15:59 Pulse Rate 85 06/07/18 15:59 Respiratory Rate 18 06/07/18 15:59 Blood Pressure 107/56 L 06/07/18 15:59 O2 Sat by Pulse Oximetry (%) 97 06/06/18 22:00 Constitutional: Yes: No Distress, Calm Cardiovascular: Yes: Regular Rate and Rhythm Respiratory: Yes: Diminished Gastrointestinal: Yes: Normal Bowel Sounds, Soft. No: Tenderness Extremities: Yes: Other (left arm weak- no strength) Edema: No Labs: CBC, BMP 06/06/18 14:12 06/06/18 14:12 Imaging - Results Chest X-ray: Image Reviewed EKG: Image Reviewed Problem List - Problems (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 Assessment/Plan PLAN Progressive disease Lives alone Walks with a cane, but has become more weak Fall precautions Neurology eval Pulmonary eval-- has severe restrictive disease on PFT Swallow evaluation change diet to chopped DVT prophylaxis
--- NOTE | 2018-06-07 19:27 | CONSULT ---
Consult - text type - Consultation Consultation Note: NEUROLOGY CONSULTATION is greatly appreciated: This 68 yo RH, man with HTN, depression and smoking lives alone. He was seen by me 01/03/18 with left hand weakness attributed to a fall. At that time he had 22 lb weight loss since the of his 1 year prior, attributed to depression. The patient never returned for his EMG and was lost to follow-up. Apparently saw Dr. Lelo Navas for progressive weakness and EMG did suggest A.L.S. Now admitted after multiple falls with > 50 lb weight loss, progressive weakness and SE=241 IU. Pt notes progressive gait dysfunction, difficulty swallowing and inability to raise a utensil to his mouth with either hand. ++ Progressive dyspnea at rest. SHARIF: Thin. No bruits. RR>24 at rest using accessory muscles. NEURO: Awake, alert. Dysarthric speech. CN: Full EOM's. Tongue sl atrophic. + fasciculations. Decreased lateral strength, protrusion and gag. Neck flexion 4-/5. Extension 4/5 Motor: Deltoids 2/5 B/L. Biceps 3/5 R, 2/5 L. Triceps 3/5 R, 2/5 L. R hand 4-/5, left hand 2/5 with severe atrophy. Course fasciculations left biceps. Legs 4-/5 proximally and 5/5 distally. Diffusely HYPERreflexic. B/L Bab[place]is. Coord: No obvious dystaxia. Sensory: Min decreased Vib in feet. IMP: Progressive weakness and atrophy with both UPPER and LOWER motor neuron signs suggesting Amyotrophic lateral Sclerosis (ALS). Plan: To review Prior EMG/ NCS To review prior MRI scans of brain and c-spine if available (Upright imaging-Pt is claustrophobic). PM&R evaluation Check B12, ESR, CRP, Lyme. PFT's and pulmonary w/u as per Dr. Guaman. Include inspiratory and expiratory forces. Might start with BIPAP at night. May need SNF level of care at this Juncture. Will follow with you. Thank you very much, Jeovany Valdez MD
[2018-06-07] MEDS: HEPARIN NA (PORCINE) 5,000 UNITS/ML 1ML VIAL SQ SCH (21:25)
[2018-06-07] MEDS: CARVEDILOL 3.125 MG TABLET (FP) PO SCH (21:25)
[2018-06-07] MEDS: ATORVASTATIN CA 20 MG TABLET (FP) PO SCH (21:28)
[2018-06-08] MEDS ORDERED: PT OWN MED DRAWER 7, Y5N ONE ×2 (09:41→21:07)
[2018-06-08] MEDS: CARVEDILOL 3.125 MG TABLET (FP) PO SCH ×2 (09:43→21:54)
[2018-06-08] MEDS: PANTOPRAZOLE 40 MG TABLET (FP) PO SCH (09:43)
[2018-06-08] MEDS: LISINOPRIL 10 MG TABLET (FP) PO SCH (09:43)
[2018-06-08] MEDS: HYDROCHLOROTHIAZIDE 25 MG TABLET (FP) PO SCH (09:43)
[2018-06-08] MEDS: predniSONE 20 MG TABLET (UD) PO SCH (09:43)
[2018-06-08] MEDS: ASPIRIN 81 MG CHEWABLE TABLETS PO SCH (09:43)
[2018-06-08] MEDS: HEPARIN NA (PORCINE) 5,000 UNITS/ML 1ML VIAL SQ SCH ×2 (09:44→21:54)
--- NOTE | 2018-06-08 09:54 | PN ---
Progress Note (short form) - Note Progress Note: weakness started using BIPAP on NC PRN Vital Signs - 24 hr 06/07/18 06/07/18 06/07/18 15:59 16:55 21:00 Temperature 97.9 F 97.4 F L Pulse Rate 85 789 H Respiratory 18 20 20 Rate Blood Pressure 107/56 L 154/85 O2 Sat by Pulse 97 Oximetry (%) 06/07/18 06/08/18 22:00 06:44 Temperature 97.5 F L 97.5 F L Pulse Rate 60 66 Respiratory 20 Rate Blood Pressure 149/71 149/91 O2 Sat by Pulse Oximetry (%) Current Medications Generic Name Dose Route Start Last Admin Trade Name Freq PRN Reason Stop Dose Admin Aspirin 81 mg 06/08/18 10:00 06/08/18 09:43 Asa - PO 81 mg DAILY STEFFANIE Administration Atorvastatin Calcium 20 mg 06/07/18 22:00 06/07/18 21:28 Lipitor - PO 20 mg HS STEFFANIE Administration Carvedilol 3.125 mg 06/07/18 22:00 06/08/18 09:43 Coreg - PO 3.125 mg BID STEFFANIE Administration Heparin Sodium (Porcine) 5,000 unit 06/07/18 22:00 06/08/18 09:44 Heparin - SQ 5,000 unit BID STEFFANIE Administration Hydrochlorothiazide 25 mg 06/08/18 10:00 06/08/18 09:43 Hctz - PO 25 mg DAILY STEFFANIE Administration Lisinopril 10 mg 06/08/18 10:00 06/08/18 09:43 Prinivil PO 10 mg DAILY STEFFANIE Administration Pantoprazole Sodium 40 mg 06/08/18 10:00 06/08/18 09:43 Protonix - PO 40 mg DAILY STEFFANIE Administration Prednisone 20 mg 06/08/18 10:00 06/08/18 09:43 Deltasone - PO 20 mg DAILY STEFFANIE Administration Sodium Chloride 3 ml 06/07/18 11:45 Normal Saline For Inhalation - IH Q6H PRN COUGH s1 S2 RRR Lungs decreased ABd- soft, NT No edema weakness left arm PLAN Neurology follow up noted palliative care eval-- pt needs advance directives avoid aspiration taper prednisone Problem List - Problems (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
--- NOTE | 2018-06-08 10:16 | CON.PULM ---
Consult Consult Specialty:: PULMONARY Referred by:: TOMAS Reason for Consultation:: ALS/ASPIRATION RISK/ - History of Present Illness Chief Complaint: ABD PAIN WEAKNESS/ WEIGHT LOSS/ASPIRATION RISK History of Present Illness: 68-year-old male presents to emergency room with complaints of progressive weakness. Patient has fallen approximately 2 times over the past 2 weeks and went to [place] ED, performed a head CT and collected labs which were -. Upon discharge, a SW prompted a Homecare consultation and this morning when the staff arrived to the home, patient was found to be underweight, fragile, and concerning for progressive ALS which she was recently diagnosed with. Patient has been noncompliant with f/u and treatment for ALS.Patient denies chest pain, fever or chills. Patient does state has difficulty swallowing food and is only been eating tuna fish for the past few weeks and drinking minimal fluids. He has weight loss and now is complaining of abd pain and is requesting pain medication . 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 No: Dementia Cardio/Vascular: Yes: HTN Pulmonary: Yes: COPD Gastrointestinal: No: Ascites Hepatobiliary: No: Cirrhosis Renal/: No: Renal Failure Heme/Onc: No: Anemia Psych: Yes: Depression Musculoskeletal: No: Paraplegia Rheumatology: No: Fibromyalgia Endocrine: No: Diabetes Mellitus - Past Surgical History Additional Surgical History: SHOULDER ARTHROSCOPIC DECOMPRESSION - Alcohol/Substance Use Hx Alcohol Use: No History of Substance Use: reports: None - Smoking History Smoking history: Current every day smoker Have you smoked in the past 12 months: Yes Aproximately how many cigarettes per day: 10 - Social History Usual Living Arrangement: Alone ADL: Independent Place of : [facility] History of Recent Travel: No Home Medications - Allergies Allergies/Adverse Reactions: Allergies Allergy/AdvReac Type Severity Reaction Status Date / Time No Known Allergies Allergy Verified 06/06/18 13:12 - Home Medications Home Medications: Ambulatory Orders Aspirin [ASA -] 81 mg PO DAILY 06/06/18 Atorvastatin Ca [Lipitor] 20 mg PO DAILY 06/06/18 Carvedilol [Coreg -] 3.125 mg PO BID 06/06/18 Hydrochlorothiazide [Hctz -] 25 mg PO DAILY 06/06/18 Lisinopril [Prinivil] 10 mg PO DAILY 06/06/18 Prednisone [Deltasone] 40 mg PO DAILY 06/06/18 Family Disease History - Family Disease History Family History: Unremarkable Review of Systems - Review of Systems Constitutional: reports: Lethargy, Loss of Appetite, Unintentional Wgt. Loss, Weakness. denies: Fever, Night Sweats Eyes: denies: Blind Spots HENT: reports: Difficult Swallowing. denies: Hearing Loss, Nasal Congestion Neck: denies: Decreased ROM Cardiovascular: denies: Chest Pain Respiratory: reports: Cough, Exercise Intolerance. denies: Hemoptysis, Wheezing Gastrointestinal: reports: Abdominal Pain, Constipation Genitourinary: reports: No Symptoms Breasts: reports: No Symptoms Reported Musculoskeletal: reports: Muscle Weakness Integumentary: reports: No Symptoms Neurological: reports: Pre-Existing Deficit, Unsteady Gait, Weakness Endocrine: reports: No Symptoms Psychiatric: reports: Depression Physical Exam Vital Sings: Vital Signs Temperature 97.5 F L 06/08/18 06:44 Pulse Rate 66 06/08/18 06:44 Respiratory Rate 20 06/08/18 06:44 Blood Pressure 149/91 06/08/18 06:44 O2 Sat by Pulse Oximetry (%) 97 06/07/18 21:00 Constitutional: Yes: Anxious, Thin Eyes: Yes: EOM Intact HENT: Yes: Normocephalic Neck: Yes: Trachea Midline Cardiovascular: Yes: Regular Rate and Rhythm, S1, S2 Respiratory: Yes: CTA Bilaterally Gastrointestinal: Yes: Normal Bowel Sounds Renal/: Yes: WNL Breast(s): Yes: WNL Musculoskeletal: Yes: Muscle Weakness Edema: No Neurological: Yes: Pre-Existing Deficit, Other (ALS WORKUP) Labs: CBC, BMP 06/06/18 14:12 06/06/18 14:12 Imaging - Results Chest X-ray: Report Reviewed, Image Reviewed Cat Scan: Report Reviewed Problem List - Problems (1) Abdominal pain Code(s): R10.9 - UNSPECIFIED ABDOMINAL PAIN (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 MBS DONE 04/2018 SHOWED SILENT ASPIRATION/ PFT'S DONE 05/04 REVEALED FVC 57% PREDICTED/MVV/SNIF (SNIFF NASAL INSP FORCE) NOT PERFORMED AT THAT TIME. NOW COMPLAINING OF ABD PAIN AND PROGRESSIVE WEIGHT LOSS, OF NOTE IS THAT PATIENT HAD LEFT ARTHROSCOPIC SHOULDER DECOMPRESSION 03/2018 AND WAS INSTRUCTED TO TAKE MOTRIN 600MG Q [address] ABD DONE 04/2018 SHOWS THICKENED GASTRIC ANTRUM AND PROXIMAL DUODENUM FOR WHICH EGD INVESTIGATION WAS SUGGESTED. MOVING FORWARD FROM A RESPIRATORY STANDPOINT VITAL CAPACITY ALONG WITH MVV AND SNIF (MOST SENSITIVE TEST TO FOLLOW) SHOULD BE PERFORMED Q 3MONTHS TO DETERMINE RISK FOR RESPIRATORY FAILURE. WOULD ALSO OBTAIN A BASELINE ABG. WILL FOLLOW Yasmine KOENIG MD
[2018-06-08 11:45] LABS: ALBUMIN 3.8 g/dl (3.4-5.0); ALK PHOS 86 U/L (45-117); ANION GAP 11 MMOL/L (8-16); BILIRUBIN,TOTAL 0.9 mg/dL (0.2-1); BLOOD UREA NITROGEN 45 mg/dL (7-18); CALCIUM 9.1 mg/dL (8.5-10.1); CHLORIDE 98 mmol/L (98-107); CO2 30 mmol/L (21-32); CREATININE 1.4 mg/dL (0.55-1.3); GLUCOSE,RANDOM 128 mg/dL (74-106); POTASSIUM 4.2 mmol/L (3.5-5.1); SGOT/AST 59 U/L (15-37); SGPT/ALT 53 U/L (13-61); SODIUM 139 mmol/L (136-145); TOT PROT 7.2 g/dl (6.4-8.2)
[2018-06-08] MEDS: ATORVASTATIN CA 20 MG TABLET (FP) PO SCH (21:54)
[2018-06-09] MEDS ORDERED: PT OWN MED DRAWER 7, Y5N ONE (01:49)
[2018-06-09] MEDS: PANTOPRAZOLE 40 MG TABLET (FP) PO SCH (09:57)
[2018-06-09] MEDS: HYDROCHLOROTHIAZIDE 25 MG TABLET (FP) PO SCH (09:57)
[2018-06-09] MEDS: predniSONE 20 MG TABLET (UD) PO SCH (09:57)
[2018-06-09] MEDS: CARVEDILOL 3.125 MG TABLET (FP) PO SCH ×2 (09:57→21:25)
[2018-06-09] MEDS: LISINOPRIL 10 MG TABLET (FP) PO SCH (09:57)
[2018-06-09] MEDS: ASPIRIN 81 MG CHEWABLE TABLETS PO SCH (09:57)
[2018-06-09] MEDS: HEPARIN NA (PORCINE) 5,000 UNITS/ML 1ML VIAL SQ SCH ×2 (09:58→21:31)
--- NOTE | 2018-06-09 11:26 | PN ---
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 SUGGEST Q3 MONTHS VITAL CAPACITY/NASAL SNIFF INSP FORCE/MVV TO EVAL FOR IMPENDING RESP FAILURE WHICH MAY REQUIRE NIPPV WOULD ASK FOR GI EVALUATION IN VIEW OF CONTINUED ABD PAIN/WGT LOSS AND PREVIOUS CT ABD FINDINGS Yasmine KOENIG MD Problem List - Problems (1) Abdominal pain Code(s): R10.9 - UNSPECIFIED ABDOMINAL PAIN (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
--- NOTE | 2018-06-09 12:54 | PN ---
Progress Note (short form) - Note Progress Note: weakness ambulates using cane, slow steps Vital Signs - 24 hr 06/08/18 06/08/18 06/09/18 21:00 22:00 06:00 Temperature 98 F 97.5 F L Pulse Rate 68 107 H Respiratory 20 20 Rate Blood Pressure 122/74 107/78 O2 Sat by Pulse 98 Oximetry (%) 06/09/18 06/09/18 08:00 15:19 Temperature 97.5 F L 97.4 F L Pulse Rate 87 79 Respiratory 18 19 Rate Blood Pressure 117/68 105/55 L O2 Sat by Pulse Oximetry (%) Current Medications Generic Name Dose Route Start Last Admin Trade Name Freq PRN Reason Stop Dose Admin Aspirin 81 mg 06/08/18 10:00 06/09/18 09:57 Asa - PO 81 mg DAILY STEFFANIE Administration Atorvastatin Calcium 20 mg 06/07/18 22:00 06/08/18 21:54 Lipitor - PO 20 mg HS STFEFANIE Administration Carvedilol 3.125 mg 06/07/18 22:00 06/09/18 09:57 Coreg - PO 3.125 mg BID STEFFANIE Administration Heparin Sodium (Porcine) 5,000 unit 06/07/18 22:00 06/09/18 09:58 Heparin - SQ 5,000 unit BID STEFFANIE Administration Hydrochlorothiazide 25 mg 06/08/18 10:00 06/09/18 09:57 Hctz - PO 25 mg DAILY STEFFANIE Administration Lisinopril 10 mg 06/08/18 10:00 06/09/18 09:57 Prinivil PO 10 mg DAILY STEFFANIE Administration Pantoprazole Sodium 40 mg 06/08/18 10:00 06/09/18 09:57 Protonix - PO 40 mg DAILY STEFFANIE Administration Prednisone 10 mg 06/09/18 17:07 Deltasone - PO DAILY STEFFANIE Sodium Chloride 3 ml 06/07/18 11:45 Normal Saline For Inhalation - IH Q6H PRN COUGH Laboratory Results - last 24 hr 06/08/18 09:25 Lyme Screen IgG & IgM <0.91 s1 S2 RRR Lungs decreased ABd- soft, NT No edema weakness left arm PLAN Neurology follow up noted palliative care eval-- pt needs advance directives avoid aspiration taper prednisone spoke with Neurology-- needs ASSISTANT ASSOCIATE PROFESSOR, will be authorizing Endavorone home infusion- may need picc line placement, non invasive ventilation spoke with hospital social worker about plan GI eval with regards to thickening of gastric antrum on CT abd Problem List - Problems (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
--- NOTE | 2018-06-09 14:41 | CONSULT ---
Consult - text type - Consultation Consultation Note: NEUROLOGY FOLLOW-UP: Events reviewed and discussed with Dr. Lopez. Pt slept comfortably with BIPAP. Exam unchanged. Diagnosis and prognosis discussed in detail with the patient and Dr. Castro IMP: Motor Neuron Disease/ probably ALS SUGGEST: Home health care, 4 hrs daily for now. Authorization for Endavarone infusions at home (will require pic- line placement if authorized). Home BIPAP equipment. Shower chair, toilet rails, Home safety check. Check prior out patient EMG (if unavailable will repeat). Thank you very much, Jeovany Valdez MD
[2018-06-09] MEDS: ATORVASTATIN CA 20 MG TABLET (FP) PO SCH (21:25)
[2018-06-10] MEDS ORDERED: ACETAMINOPHEN 325 MG TABLET (FP) PO ONE (06:19)
[2018-06-10] MEDS ORDERED: PT OWN MED DRAWER 7, Y5N ONE ×2 (09:41→21:00)
[2018-06-10] MEDS: HYDROCHLOROTHIAZIDE 25 MG TABLET (FP) PO SCH (09:45)
[2018-06-10] MEDS: HEPARIN NA (PORCINE) 5,000 UNITS/ML 1ML VIAL SQ SCH ×2 (09:45→21:36)
[2018-06-10] MEDS: ASPIRIN 81 MG CHEWABLE TABLETS PO SCH (09:45)
[2018-06-10] MEDS: CARVEDILOL 3.125 MG TABLET (FP) PO SCH ×2 (09:45→21:36)
[2018-06-10] MEDS: PANTOPRAZOLE 40 MG TABLET (FP) PO SCH (09:45)
[2018-06-10] MEDS: LISINOPRIL 10 MG TABLET (FP) PO SCH (09:45)
[2018-06-10] MEDS ORDERED: predniSONE 10 MG TABLET (UD) PO SCH (10:00)
--- NOTE | 2018-06-10 11:34 | PN ---
Progress Note (short form) - Note Progress Note: PULMONARY Intermittent shortness of breath. No cough. Vital Signs Period Temp Pulse Resp BP Sys/Coker Pulse Ox Last 24 Hr 97.4 F-98 F 66-79 18-19 105-140/55-85 97-98 Gen: mildly tachypneic with speaking Heart: RRR Lung: decreased breath sounds at the bases Abd: soft, nontender Ext: no edema CBC, BMP 06/06/18 14:12 06/08/18 09:25 Active Medications Aspirin (Asa -) 81 mg PO DAILY [facility] Last Admin: 06/10/18 09:45 Dose: 81 mg Atorvastatin Calcium (Lipitor -) 20 mg PO HS [facility] Last Admin: 06/09/18 21:25 Dose: 20 mg Carvedilol (Coreg -) 3.125 mg PO BID [facility] Last Admin: 06/10/18 09:45 Dose: 3.125 mg Heparin Sodium (Porcine) (Heparin -) 5,000 unit SQ BID [facility] Last Admin: 06/10/18 09:45 Dose: 5,000 unit Hydrochlorothiazide (Hctz -) 25 mg PO DAILY [facility] Last Admin: 06/10/18 09:45 Dose: 25 mg Lisinopril (Prinivil) 10 mg PO DAILY [facility] Last Admin: 06/10/18 09:45 Dose: 10 mg Pantoprazole Sodium (Protonix -) 40 mg PO DAILY [facility] Last Admin: 06/10/18 09:45 Dose: 40 mg Prednisone (Deltasone -) 10 mg PO DAILY [facility] Last Admin: 06/10/18 09:45 Dose: 10 mg Sodium Chloride (Normal Saline For Inhalation -) 3 ml IH Q6H PRN PRN Reason: COUGH A/P Progressive ALS HTN Hypercholesterolemia - monitor vital capacity, NIF - will need outpt f/u - DVT prophylaxis
--- NOTE | 2018-06-10 13:36 | PN ---
Progress Note (short form) - Note Progress Note: weakness ambulates using cane, slow steps Vital Signs - 24 hr 06/09/18 06/09/18 06/09/18 15:19 17:08 19:21 Temperature 97.4 F L 98 F Pulse Rate 79 66 Respiratory 19 18 Rate Blood Pressure 105/55 L 130/74 O2 Sat by Pulse 97 Oximetry (%) 06/09/18 06/09/18 06/10/18 21:00 22:00 05:46 Temperature 98 F 97.4 F L Pulse Rate 66 70 Respiratory 18 18 Rate Blood Pressure 130/74 140/85 O2 Sat by Pulse 98 Oximetry (%) 06/10/18 06/10/18 09:00 10:00 Temperature 97.3 F L Pulse Rate 75 Respiratory 20 20 Rate Blood Pressure 110/75 O2 Sat by Pulse 100 Oximetry (%) Current Medications Generic Name Dose Route Start Last Admin Trade Name Freq PRN Reason Stop Dose Admin Aspirin 81 mg 06/08/18 10:00 06/10/18 09:45 Asa - PO 81 mg DAILY STEFFANIE Administration Atorvastatin Calcium 20 mg 06/07/18 22:00 06/09/18 21:25 Lipitor - PO 20 mg HS STEFFANIE Administration Carvedilol 3.125 mg 06/07/18 22:00 06/10/18 09:45 Coreg - PO 3.125 mg BID STEFFANIE Administration Heparin Sodium (Porcine) 5,000 unit 06/07/18 22:00 06/10/18 09:45 Heparin - SQ 5,000 unit BID STEFFANIE Administration Hydrochlorothiazide 25 mg 06/08/18 10:00 06/10/18 09:45 Hctz - PO 25 mg DAILY STEFFANIE Administration Lisinopril 10 mg 06/08/18 10:00 06/10/18 09:45 Prinivil PO 10 mg DAILY STEFFANIE Administration Pantoprazole Sodium 40 mg 06/08/18 10:00 06/10/18 09:45 Protonix - PO 40 mg DAILY STEFFANIE Administration Prednisone 10 mg 06/10/18 10:00 06/10/18 09:45 Deltasone - PO 10 mg DAILY STEFFANIE Administration Sodium Chloride 3 ml 06/07/18 11:45 Normal Saline For Inhalation - IH Q6H PRN COUGH Laboratory Results - last 24 hr 06/08/18 09:25 Lyme Screen IgG & IgM <0.91 s1 S2 RRR Lungs decreased ABd- soft, NT No edema weakness left arm PLAN Neurology follow up noted palliative care eval-- pt needs advance directives avoid aspiration taper prednisone spoke with Neurology-- needs BIOMETRICS TECHNICIAN, will be authorizing Endavorone home infusion- may need picc line placement, non invasive ventilation spoke with social scientist about plan GI eval with regards to thickening of gastric antrum on CT abd Problem List - Problems (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
[2018-06-10] MEDS: ACETAMINOPHEN 325 MG TABLET (FP) PO PRN (15:10)
[2018-06-10] MEDS: LIDOCAINE 5% TOPICAL PATCH TP SCH (15:10)
--- NOTE | 2018-06-10 15:20 | CONS ---
GASTROINTESTINAL CONSULTATION DATE OF CONSULTATION: DATE OF DICTATION: 06/10/2018 The patient is a 68-year-old man with a past medical history of hypertension, hypercholesterolemia, asthma, who presented to the hospital after falling 2 times over the past 2 weeks. He was seen in [facility] emergency room and discharged with home care. When the staff arrived at home, he was found underweight, fragile and there was a concern for progressive ALS, which was recently diagnosed in this patient. The patient does admit to difficulty swallowing food and has only been eating tuna fish over the past few weeks and drinking minimal fluids. PAST MEDICAL AND SURGICAL HISTORY: As listed in the HPI. ALLERGIES: No known drug allergies. HOME MEDICATIONS: Include aspirin, atorvastatin, carvedilol, hydrochlorothiazide, lisinopril and prednisone. SMOKING HISTORY: Denies. ALCOHOL USE: None. REVIEW OF SYSTEMS: Negative except for pertinent positives in the HPI. PHYSICAL EXAMINATION: Vital Signs: Temperature 97, pulse 75, respiratory rate 12, blood pressure 110/ 75. General: In no acute distress. Pleasant man. HEENT: Anicteric sclerae. Cardiovascular: S1, S2. Regular rate and rhythm. Lungs: Bilaterally clear to auscultation. Abdomen: Soft, nontender. Extremities: No edema. LABORATORY DATA: White blood cell count 7.6, hemoglobin and hematocrit 13/38, MCV 89, platelet count 245. Sodium 139, potassium 4.2, BUN/creatinine 45/1.4, total bilirubin 0.9, AST 59, ALT 53, alkaline phosphatase 86. He did not have any abdominal imaging. IMPRESSION: Dysphagia secondary to his underlying neurological process - ALS. RECOMMENDATIONS: Speech and swallow evaluation. Also obtain a video fluoroscopic swallow study and a calorie count. Pending these findings, will discuss further management of his dysphagia including placement of a percutaneous gastrostomy tube. DO ASHLEY SONI/[id number] MTDD
[2018-06-10] MEDS: LIDOCAINE PATCH REMOVAL MC SCH (21:36)
[2018-06-10] MEDS: ATORVASTATIN CA 20 MG TABLET (FP) PO SCH (21:36)
[2018-06-11] MEDS ORDERED: PT OWN MED DRAWER 7, Y5N ONE (01:32)
[2018-06-11] MEDS: LIDOCAINE 5% TOPICAL PATCH TP SCH (10:37)
[2018-06-11] MEDS: ASPIRIN 81 MG CHEWABLE TABLETS PO SCH (10:37)
[2018-06-11] MEDS: LISINOPRIL 10 MG TABLET (FP) PO SCH (10:38)
[2018-06-11] MEDS: PANTOPRAZOLE 40 MG TABLET (FP) PO SCH (10:38)
[2018-06-11] MEDS: CARVEDILOL 3.125 MG TABLET (FP) PO SCH ×2 (10:38→21:28)
[2018-06-11] MEDS: predniSONE 5 MG TABLET (UD) PO SCH (10:38)
[2018-06-11] MEDS: HYDROCHLOROTHIAZIDE 25 MG TABLET (FP) PO SCH (10:38)
[2018-06-11] MEDS: HEPARIN NA (PORCINE) 5,000 UNITS/ML 1ML VIAL SQ SCH ×2 (10:38→21:29)
--- NOTE | 2018-06-11 11:31 | PN ---
Progress Note, Physician Chief Complaint: No new complaints - no change in clinical status - Current Medication List Current Medications: Active Medications Acetaminophen (Tylenol -) 650 mg PO Q4H PRN PRN Reason: PAIN Last Admin: 06/10/18 15:10 Dose: 650 mg Aspirin (Asa -) 81 mg PO DAILY REPLACED BY [facility] Last Admin: 06/11/18 10:37 Dose: 81 mg Atorvastatin Calcium (Lipitor -) 20 mg PO HS REPLACED BY [facility] Last Admin: 06/10/18 21:36 Dose: 20 mg Carvedilol (Coreg -) 3.125 mg PO BID REPLACED BY [facility] Last Admin: 06/11/18 10:38 Dose: 3.125 mg Heparin Sodium (Porcine) (Heparin -) 5,000 unit SQ BID REPLACED BY [facility] Last Admin: 06/11/18 10:38 Dose: 5,000 unit Hydrochlorothiazide (Hctz -) 25 mg PO DAILY [facility]PLACED BY [facility] Last Admin: 06/11/18 10:38 Dose: 25 mg Lidocaine (Lidoderm Patch -) 1 patch TP DAILY REPLACED BY [facility] Last Admin: 06/11/18 10:37 Dose: 1 patch Lisinopril (Prinivil) 10 mg PO DAILY REPLACED BY [facility] Last Admin: 06/11/18 10:38 Dose: 10 mg Miscellaneous (Lidoderm Patch Removal) 1 each MC DAILY@2200 REPLACED BY [facility] Last Admin: 06/10/18 21:36 Dose: Not Given Pantoprazole Sodium (Protonix -) 40 mg PO DAILY REPL[facility]ED BY [facility] Last Admin: 06/11/18 10:38 Dose: 40 mg Prednisone (Deltasone -) 5 mg PO DAILY REPLAC[facility] BY [facility] Last Admin: 06/11/18 10:38 Dose: 5 mg Sodium Chloride (Normal Saline For Inhalation -) 3 ml IH Q6H PRN PRN Reason: COUGH - Objective Vital Signs: Vital Signs Temperature 97.4 F L 06/11/18 06:00 Pulse Rate 79 06/11/18 06:00 Respiratory Rate 20 06/11/18 06:00 Blood Pressure 115/70 06/11/18 06:00 O2 Sat by Pulse Oximetry (%) 100 06/10/18 20:14 Constitutional: Yes: Well Nourished, No Distress, Calm Eyes: Yes: WNL HENT: Yes: WNL Neck: Yes: WNL Cardiovascular: Yes: WNL, Regular Rate and Rhythm Respiratory: Yes: Regular, CTA Bilaterally Gastrointestinal: Yes: WNL, Normal Bowel Sounds, Soft Extremities: Yes: WNL Edema: No Labs: CBC, BMP 06/06/18 14:12 06/08/18 09:25 Problem List - Problems (1) Dysphagia Assessment/Plan: Dysphagia / weight loss secondary to underlying neuromuscular disease (ALS) - f/u swallow evaluation - I discussed the risk and benefit of percutaneous gastrostomy tube placement - He states he is unsure & needs to think about it. 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
--- NOTE | 2018-06-11 13:00 | PN ---
Progress Note (short form) - Note Progress Note: PULMONARY Still with dyspnea on exertion. +nonproductive cough. Vital Signs Period Temp Pulse Resp BP Sys/Coker Pulse Ox Last 24 Hr 97.3 F-98.2 F 67-101 18-20 104-130/52-78 100 Gen: mildly tachypneic with speaking Heart: RRR Lung: decreased breath sounds at the bases Abd: soft, nontender Ext: no edema CBC, BMP 06/06/18 14:12 06/08/18 09:25 Active Medications Acetaminophen (Tylenol -) 650 mg PO Q4H PRN PRN Reason: PAIN Last Admin: 06/10/18 15:10 Dose: 650 mg Aspirin (Asa -) 81 mg PO DAILY [facility] Last Admin: 06/11/18 10:37 Dose: 81 mg Atorvastatin Calcium (Lipitor -) 20 mg PO HS [facility] Last Admin: 06/10/18 21:36 Dose: 20 mg Carvedilol (Coreg -) 3.125 mg PO BID [facility] Last Admin: 06/11/18 10:38 Dose: 3.125 mg Heparin Sodium (Porcine) (Heparin -) 5,000 unit SQ BID [facility] Last Admin: 06/11/18 10:38 Dose: 5,000 unit Hydrochlorothiazide (Hctz -) 25 mg PO DAILY [facility] Last Admin: 06/11/18 10:38 Dose: 25 mg Lidocaine (Lidoderm Patch -) 1 patch TP DAILY [facility] Last Admin: 06/11/18 10:37 Dose: 1 patch Lisinopril (Prinivil) 10 mg PO DAILY [facility] Last Admin: 06/11/18 10:38 Dose: 10 mg Miscellaneous (Lidoderm Patch Removal) 1 each MC DAILY@2200 [facility] Last Admin: 06/10/18 21:36 Dose: Not Given Pantoprazole Sodium (Protonix -) 40 mg PO DAILY [facility] Last Admin: 06/11/18 10:38 Dose: 40 mg Prednisone (Deltasone -) 5 mg PO DAILY [facility] Last Admin: 06/11/18 10:38 Dose: 5 mg Sodium Chloride (Normal Saline For Inhalation -) 3 ml IH Q6H PRN PRN Reason: COUGH A/P Progressive ALS HTN Hypercholesterolemia - monitor vital capacity, NIF - will need outpt f/u - O2 to keep SpO2 >90% - NIPPV at night and PRN during day - DVT prophylaxis
--- NOTE | 2018-06-11 15:19 | PN ---
Progress Note, SANITATION DIRECTOR - Note Progress Note: Reviewed case with GI and Neurology. Pt would benefit from GT feedings to reduce aspiration risk and improve nutritional status. Reviewed with Neurology Pt's impaired memory. 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 Still with dyspnea on exertion. +nonproductive cough. Aspiration? Selected Entries 06/10/18 06/10/18 06/10/18 05:46 10:00 11:42 Breakfast 100% Diet Tolerated Lunch Supper Temperature 97.4 F L 97.3 F L 06/10/18 06/10/18 06/10/18 15:38 17:55 22:00 Breakfast Diet Tolerated Lunch 100% Supper Temperature 98.2 F 97.3 F L 97.3 F L 06/10/18 06/11/18 06/11/18 23:06 06:00 12:03 Breakfast Diet Tolerated Well Lunch Supper 100% Temperature 97.4 F L 06/11/18 14:53 Breakfast Diet Tolerated Fair Lunch 50% Supper Temperature 98.4 F Consider PEG via IR, which may be better tolerated, due to impaired pulmonary function. Consider GI/Pulmonary opinion regarding GI/Surgical PEG vs IR. Diet order is chopped and thin liquid,Ensure Vanilla with reportedly good tolerance.May benefit from trial of nectar thick liquid/Ensure compact. D/c plan Rehab vs home? Pt resides alone. Consider review of pt's end of life wishes. Pt is full code per EMR status.
--- NOTE | 2018-06-11 19:12 | PN ---
Progress Note (short form) - Note Progress Note: weakness ambulates using cane, slow steps voice is hoarse Vital Signs - 24 hr 06/10/18 06/10/18 06/11/18 20:14 22:00 06:00 Temperature 97.3 F L 97.4 F L Pulse Rate 96 H 79 Respiratory 20 20 Rate Blood Pressure 112/59 L 115/70 O2 Sat by Pulse 100 Oximetry (%) 06/11/18 06/11/18 14:53 17:15 Temperature 98.4 F 98.8 F Pulse Rate 44 L 108 H Respiratory 18 20 Rate Blood Pressure 100/78 107/53 L O2 Sat by Pulse Oximetry (%) Current Medications Generic Name Dose Route Start Last Admin Trade Name Freq PRN Reason Stop Dose Admin Acetaminophen 650 mg 06/10/18 13:37 06/10/18 15:10 Tylenol - PO 650 mg Q4H PRN Administration PAIN Aspirin 81 mg 06/08/18 10:00 06/11/18 10:37 Asa - PO 81 mg DAILY STEFF[facility]IE Administration Atorvastatin Calcium 20 mg 06/07/18 22:00 06/10/18 21:36 Lipitor - PO 20 mg HS STEFFANIE Administration Carvedilol 3.125 mg 06/07/18 22:00 06/11/18 10:38 Coreg - PO 3.125 mg BID STEFFANIE Administration Heparin Sodium (Porcine) 5,000 unit 06/07/18 22:00 06/11/18 10:38 Heparin - SQ 5,000 unit BID STEFFANIE Administration Hydrochlorothiazide 25 mg 06/08/18 10:00 06/11/18 10:38 Hctz - PO 25 mg DAILY STE[facility]IE Administration Lidocaine 1 patch 06/10/18 13:45 06/11/18 10:37 Lidoderm Patch - TP 1 patch DAILY [facility] Administration Lisinopril 10 mg 06/08/18 10:00 06/11/18 10:38 Prinivil PO 10 mg DAILY [facility]IE Administration Miscellaneous 1 each 06/10/18 22:00 06/10/18 21:36 Lidoderm Patch Removal MC Not Given DAILY@2200 STE[facility] Pantoprazole Sodium 40 mg 06/08/18 10:00 06/11/18 10:38 Protonix - PO 40 mg DAILY STE[facility]IE Administration Prednisone 5 mg 06/10/18 13:37 06/11/18 10:38 Deltasone - PO 5 mg DAILY [facility] Administration Sodium Chloride 3 ml 06/07/18 11:45 Normal Saline For Inhalation - IH Q6H PRN COUGH s1 S2 RRR Lungs decreased ABd- soft, NT No edema weakness left arm PLAN rapidly progressive disease per Neurology voice is now hoarse-- diet according to swallow therapist I spoke to the pt in detail about advance directives-- about trach +ventilator, peg feedings-- explained that his disease is rapid-- he will think about it- very discouraged - Palliative care nurse will be back tomorrow avoid aspiration dc prednisone GI eval appreciated --needs CONTACT LENS INSPECTOR, will be authorizing Endavorone home infusion- may need picc line placement, non invasive ventilation spoke with social media executive about plan prognosis poor Problem List - Problems (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
[2018-06-11] MEDS: ATORVASTATIN CA 20 MG TABLET (FP) PO SCH (21:28)
[2018-06-11] MEDS: LIDOCAINE PATCH REMOVAL MC SCH (21:31)
--- NOTE | 2018-06-12 08:43 | PN ---
GI Progress Note Subjective: Came to discuss PEG with Mr. Erazo. he redirected the conversation to his left sided rib pain and shoulder pain and asked how much longer he has to live - Objective Vital Signs: Vital Signs Temperature 97.4 F L 06/12/18 06:00 Pulse Rate 78 06/12/18 06:00 Respiratory Rate 18 06/12/18 06:00 Blood Pressure 155/76 06/12/18 06:00 O2 Sat by Pulse Oximetry (%) 99 06/12/18 07:14 Constitutional: Calm Cardiovascular: Yes: Regular Rate and Rhythm Respiratory: Yes: CTA Bilaterally Gastrointestinal Inspection: No: Distention ...Auscultate: Yes: Normoactive Bowel Sounds ...Palpate: No: Hepatomegaly, Splenomegaly, Tenderness ...Percussion: No: Tympanitic Edema: No (No LE edema) Neurological: Yes: Alert Labs: CBC, BMP 06/06/18 14:12 06/08/18 09:25 Problem List - Problems (1) Dysphagia Assessment/Plan: Mr. Jones did not answer as to whether or not he wanted to proceed with gastrostomy tube placement but rather deflected the conversation to the rib pain he was experiencing and how long he had left to live. I asked that he discuss his concerns with nme medicla team and neurologist. if he is amenable to G-Tube placement, IR placed gastrostomy may be the best option given his impaired respiratory status. Code(s): R13.10 - DYSPHAGIA, UNSPECIFIED
[2018-06-12] MEDS: LIDOCAINE 5% TOPICAL PATCH TP SCH (10:04)
--- NOTE | 2018-06-12 10:04 | PN ---
Progress Note (short form) - Note Progress Note: OOB to chair. Mildly tachypneic with speaking. Left sided rib pain better with patch. Some dry cough. No acute overnight. Intake & Output 06/09/18 06/10/18 06/11/18 06/12/18 23:59 23:59 23:59 23:59 Intake Total 910 450 Output Total 300 Balance 910 450 -300 Last Vital Signs Temp Pulse Resp BP Pulse Ox 97.4 F L 78 18 155/76 99 06/12/18 06:00 06/12/18 06:00 06/12/18 06:00 06/12/18 06:00 06/12/18 07:14 Active Medications Acetaminophen (Tylenol -) 650 mg PO Q4H PRN PRN Reason: PAIN Last Admin: 06/10/18 15:10 Dose: 650 mg Aspirin (Asa -) 81 mg PO DAILY [facility] Last Admin: 06/11/18 10:37 Dose: 81 mg Atorvastatin Calcium (Lipitor -) 20 mg PO HS [facility] Last Admin: 06/11/18 21:28 Dose: 20 mg Carvedilol (Coreg -) 3.125 mg PO BID [facility] Last Admin: 06/11/18 21:28 Dose: 3.125 mg Heparin Sodium (Porcine) (Heparin -) 5,000 unit SQ BID [facility] Last Admin: 06/11/18 21:29 Dose: 5,000 unit Hydrochlorothiazide (Hctz -) 25 mg PO DAILY [facility] Last Admin: 06/11/18 10:38 Dose: 25 mg Lidocaine (Lidoderm Patch -) 1 patch TP DAILY [facility] Last Admin: 06/11/18 10:37 Dose: 1 patch Lisinopril (Prinivil) 10 mg PO DAILY [facility] Last Admin: 06/11/18 10:38 Dose: 10 mg Miscellaneous (Lidoderm Patch Removal) 1 each MC DAILY@2200 [facility] Last Admin: 06/11/18 21:31 Dose: Not Given Pantoprazole Sodium (Protonix -) 40 mg PO DAILY [facility] Last Admin: 06/11/18 10:38 Dose: 40 mg Prednisone (Deltasone -) 5 mg PO DAILY [facility] Last Admin: 06/11/18 10:38 Dose: 5 mg Sodium Chloride (Normal Saline For Inhalation -) 3 ml IH Q6H PRN PRN Reason: COUGH Gen: mildly tachypneic with speaking Heart: RRR Lung: decreased breath sounds at the bases Abd: soft, nontender Ext: no edema A/P Progressive ALS HTN Hypercholesterolemia - monitor vital capacity, NIF - will need outpt f/u - O2 to keep SpO2 >90% - NIPPV at night and PRN during day: Patient has not been using - DVT prophylaxis Dr Sinha
[2018-06-12] MEDS: predniSONE 5 MG TABLET (UD) PO SCH (10:06)
[2018-06-12] MEDS: PANTOPRAZOLE 40 MG TABLET (FP) PO SCH (10:06)
[2018-06-12] MEDS: HYDROCHLOROTHIAZIDE 25 MG TABLET (FP) PO SCH (10:06)
[2018-06-12] MEDS: LISINOPRIL 10 MG TABLET (FP) PO SCH (10:06)
[2018-06-12] MEDS: ASPIRIN 81 MG CHEWABLE TABLETS PO SCH (10:06)
[2018-06-12] MEDS: HEPARIN NA (PORCINE) 5,000 UNITS/ML 1ML VIAL SQ SCH ×2 (10:06→21:42)
[2018-06-12] MEDS: CARVEDILOL 3.125 MG TABLET (FP) PO SCH ×2 (10:06→21:41)
[2018-06-12] MEDS ORDERED: DOCUSATE SODIUM 100 MG CAPSULE (FP) PO PRN (10:51)
--- NOTE | 2018-06-12 11:01 | PN ---
Progress Note (short form) - Note Progress Note: pt seen/ examined. chart reviewed sitting in chair mood depressed . c/c- pain in left rib cage- Vital Signs Temp 97.4 F L 06/12/18 06:00 Pulse 78 06/12/18 06:00 Resp 18 06/12/18 06:00 BP 155/76 06/12/18 06:00 Pulse Ox 99 06/12/18 07:14 Intake & Output 06/11/18 06/11/18 06/12/18 11:59 23:59 11:59 Intake Total 100 350 Output Total 300 Balance 100 350 -300 Intake: Oral 100 350 Output: Urine 300 Void 300 Other: Voiding Method Toilet # Unmeasured Voids Void 2 1 Bowel Movement No Active Medications Acetaminophen (Tylenol -) 650 mg PO Q4H PRN PRN Reason: PAIN Last Admin: 06/10/18 15:10 Dose: 650 mg Aspirin (Asa -) 81 mg PO DAILY [facility] Last Admin: 06/12/18 10:06 Dose: 81 mg Atorvastatin Calcium (Lipitor -) 20 mg PO HS [facility] Last Admin: 06/11/18 21:28 Dose: 20 mg Carvedilol (Coreg -) 3.125 mg PO BID [facility] Last Admin: 06/12/18 10:06 Dose: 3.125 mg Docusate Sodium (Colace -) 100 mg PO BID PRN PRN Reason: CONSTIPATION Heparin Sodium (Porcine) (Heparin -) 5,000 unit SQ BID [facility] Last Admin: 06/12/18 10:06 Dose: 5,000 unit Hydrochlorothiazide (Hctz -) 25 mg PO DAILY [facility] Last Admin: 06/12/18 10:06 Dose: 25 mg Lidocaine (Lidoderm Patch -) 1 patch TP DAILY [facility] Last Admin: 06/12/18 10:04 Dose: 1 patch Lisinopril (Prinivil) 10 mg PO DAILY [facility] Last Admin: 06/12/18 10:06 Dose: 10 mg Miscellaneous (Lidoderm Patch Removal) 1 each MC DAILY@2200 [facility] Last Admin: 06/11/18 21:31 Dose: Not Given Oxycodone HCl (Roxicodone -) 5 mg PO Q6H PRN PRN Reason: PAIN LEVEL 6-10 Pantoprazole Sodium (Protonix -) 40 mg PO DAILY [facility] Last Admin: 11/26/18 10:06 Dose: 40 mg Prednisone (Deltasone -) 5 mg PO DAILY [facility] Last Admin: 06/12/18 10:06 Dose: 5 mg Sodium Chloride (Normal Saline For Inhalation -) 3 ml IH Q6H PRN PRN Reason: COUGH CBC, BMP 06/06/18 14:12 06/08/18 09:25 Physical Exam awake/ comfortable sitting in chair Lungs decreased ABd- soft, NT No edema weakness left arm PLAN Continue present care get x ray of left rib series pain control-- short course of oxycodone --needs CLINICAL RN MANAGER, will be authorizing Endavorone home infusion- may need picc line placement, non invasive ventilation psychology consult f/u labs pt not talking about peg yet-- wants to address pain first physical therapy will follow Problem List - Problems (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
[2018-06-12] MEDS: oxyCODONE HCL 5 MG TABLET PO PRN (14:01)
[2018-06-12 15:44] LABS: ARTERIAL BLD GAS O2 SATURATION 98.4 % (90-98.9); ARTERIAL BLOOD GAS BASE EXCESS 4.4 meq/l (-2-2); ARTERIAL BLOOD GAS PCO2 49.6 mmHg (35-45)
[2018-06-12 15:46] LABS: ALLENS TEST POSITIVE
[2018-06-12] MEDS: ATORVASTATIN CA 20 MG TABLET (FP) PO SCH (21:41)
[2018-06-12] MEDS: LIDOCAINE PATCH REMOVAL MC SCH (21:48)
[2018-06-13 07:44] LABS: BASO % 0.4 % (0-2.0); EOS % 2.6 % (0-4.5); HEMOGLOBIN 14.3 GM/dL (11.7-16.9); LYMPH % 19.1 % (8-40); MCH 30.8 pg (25.7-33.7); MCHC 34.2 g/dl (32.0-35.9); MEAN CELL VOLUME 90.2 fl (80-96); MEAN PLT VOLUME 10.5 fl (7.5-11.1); MONO % 10.1 % (3.8-10.2); NEUT % 67.8 % (42.8-82.8); PLATELET COUNT 213 K/MM3 (134-434); RBC 4.66 M/mm3 (4.00-5.60); RDW 14.8 % (11.9-15.9); WHITE BLOOD COUNT 8.9 K/mm3 (4.0-10.0)
[2018-06-13 08:04] LABS: ALBUMIN 4.1 g/dl (3.4-5.0); ALK PHOS 86 U/L (45-117); ANION GAP 7 MMOL/L (8-16); BILIRUBIN,TOTAL 0.7 mg/dL (0.2-1); BLOOD UREA NITROGEN 98 mg/dL (7-18); CALCIUM 9.5 mg/dL (8.5-10.1); CHLORIDE 93 mmol/L (98-107); CO2 35 mmol/L (21-32); CREATININE 2.3 mg/dL (0.55-1.3); GLUCOSE,RANDOM 95 mg/dL (74-106); POTASSIUM 4.7 mmol/L (3.5-5.1); SGOT/AST 43 U/L (15-37); SGPT/ALT 53 U/L (13-61); SODIUM 136 mmol/L (136-145); TOT PROT 7.5 g/dl (6.4-8.2)
[2018-06-13 08:10] LABS: INR 0.92 (0.83-1.09); PROTHROMBIN TIME (PATIENT) 10.9 SEC (9.7-13.0)
[2018-06-13] MEDS: oxyCODONE HCL 5 MG TABLET PO PRN ×2 (08:38→15:22)
--- NOTE | 2018-06-13 09:32 | CON.PSL ---
Psychology Consult Consult Specialty:: Neuropsychology History Provided By: Patient Limitations to Obtaining History: Clinical Condition Current Medications: Active Medications Acetaminophen (Tylenol -) 650 mg PO Q4H PRN PRN Reason: PAIN Last Admin: 06/10/18 15:10 Dose: 650 mg Aspirin (Asa -) 81 mg PO DAILY [facility] Last Admin: 06/12/18 10:06 Dose: 81 mg Atorvastatin Calcium (Lipitor -) 20 mg PO HS [facility] Last Admin: 06/12/18 21:41 Dose: 20 mg Carvedilol (Coreg -) 3.125 mg PO BID [facility] Last Admin: 06/12/18 21:41 Dose: 3.125 mg Docusate Sodium (Colace -) 100 mg PO BID PRN PRN Reason: CONSTIPATION Heparin Sodium (Porcine) (Heparin -) 5,000 unit SQ BID [facility] Last Admin: 06/12/18 21:42 Dose: 5,000 unit Hydrochlorothiazide (Hctz -) 25 mg PO DAILY [facility] Last Admin: 06/12/18 10:06 Dose: 25 mg Lidocaine (Lidoderm Patch -) 1 patch TP DAILY [facility] Last Admin: 06/12/18 10:04 Dose: 1 patch Lisinopril (Prinivil) 10 mg PO DAILY [facility] Last Admin: 06/12/18 10:06 Dose: 10 mg Miscellaneous (Lidoderm Patch Removal) 1 each MC DAILY@2200 [facility] Last Admin: 06/12/18 21:48 Dose: 1 each Oxycodone HCl (Roxicodone -) 5 mg PO Q6H PRN PRN Reason: PAIN LEVEL 6-10 Last Admin: 06/13/18 08:38 Dose: 5 mg Pantoprazole Sodium (Protonix -) 40 mg PO DAILY [facility] Last Admin: 06/12/18 10:06 Dose: 40 mg Prednisone (Deltasone -) 5 mg PO DAILY [facility] Last Admin: 06/12/18 10:06 Dose: 5 mg Sodium Chloride (Normal Saline For Inhalation -) 3 ml IH Q6H PRN PRN Reason: COUGH Allergies: Allergies Allergy/AdvReac Type Severity Reaction Status Date / Time No Known Allergies Allergy Verified 06/06/18 13:12 Does patient have pain?: Yes Pain Location Body Site: Chest (Pt. complained of pain on his L rib cage.) Pain Description: Sharp Hx Alcohol Use: No Hx Substance Use: No Hx Substance Use Treatment: No Current Medical Exam-Psy Orientation: Time, Person, Place Immediate Term Memory: 3/3 Expressive: Delayed Receptive: Age Appropriate Comprehension of Spoken Words Hallucinations: Absent Thought Process: Intact Depression: Severe Loss of Interest: Yes Anxiety Level: Mild Danger to Self and Others: No Sleep: Poorly Appetite: Poor Serial Sevens Intact: No Repeats 3 words told earlier: 0/3 (His concentraion and short term memory are compromised.) Support System: Friend Problem List - Problem (1) Depressed Assessment/Plan: The patient is experiencing severe depression and mild anxiety due to his medical diagnosis. He realizes it is a terminal illness. His pain level is severe at a 10. He complained of localized pain on his L-rib cage. The patient experienced difficulty with verbal expression and often spoke in a low tone. However, his use of expressive language otherwise did not appear to be compromised. Likewise, his receptive language was intact. The patient's family HX was difficult to ascertain as he indicated that he had not been in contact with his family for a long time. His two years ago. 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 Pain management in addition to psychotherapeutic intervention was offered to the patient. He will be seen again tomorrow. Code(s): F32.9 - MAJOR DEPRESSIVE DISORDER, SINGLE EPISODE, UNSPECIFIED Qualifiers: Depression Type: major depressive disorder Major depression recurrence: recurrent Active/Remission status: currently active Major depression episode severity: severe Psychotic features: without psychotic features Qualified Code(s): F33.2 - Major depressive disorder, recurrent severe without psychotic features (2) Anxiety and depression Code(s): F41.9 - ANXIETY DISORDER, UNSPECIFIED; F32.9 - MAJOR DEPRESSIVE DISORDER, SINGLE EPISODE, UNSPECIFIED Assessment/Plan The patient is a 68 year old male diagnosed with ALS. He still is able to ambulate to some degree. It was difficult to use his L-hand to manipulate his telephone as he knew he had an appointment with Dr. Oglesby tomorrow and wanted to inform him that he was hospitalized. 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 He was considerate of informing that physician about his inability to make the appointment. The patient is severely depressed and experiences hopelessness. He wishes he could go to sleep as he would like to end his suffering. If asked if he is a danger to self, he is not capable of ending his life and did not indicate that he would if he were able to do so. Supportive therapy and additional psychological pain management will be offered to the patient. It is recommended that Pastoral Care be offered as well.
[2018-06-13] MEDS: PANTOPRAZOLE 40 MG TABLET (FP) PO SCH (09:45)
[2018-06-13] MEDS: LIDOCAINE 5% TOPICAL PATCH TP SCH (09:45)
[2018-06-13] MEDS: LISINOPRIL 10 MG TABLET (FP) PO SCH (09:45)
[2018-06-13] MEDS: HEPARIN NA (PORCINE) 5,000 UNITS/ML 1ML VIAL SQ SCH ×2 (09:45→23:50)
[2018-06-13] MEDS: HYDROCHLOROTHIAZIDE 25 MG TABLET (FP) PO SCH (09:45)
[2018-06-13] MEDS: ASPIRIN 81 MG CHEWABLE TABLETS PO SCH (09:45)
[2018-06-13] MEDS: predniSONE 5 MG TABLET (UD) PO SCH (09:45)
[2018-06-13] MEDS: CARVEDILOL 3.125 MG TABLET (FP) PO SCH ×2 (09:45→23:50)
--- NOTE | 2018-06-13 11:46 | PN ---
Progress Note (short form) - Note Progress Note: Still with some left lateral discomfort, but improving with the patch. Mildly tachypneic with speaking. Some dry cough. No acute overnight. Rib X ray: no acute fracture or process noted Intake & Output 06/10/18 06/11/18 06/12/18 06/13/18 23:59 23:59 23:59 23:59 Intake Total 450 240 380 Output Total 300 Balance 450 -60 380 Last Vital Signs Temp Pulse Resp BP Pulse Ox 97.5 F L 62 20 159/82 97 06/13/18 07:38 06/13/18 07:38 06/13/18 07:38 06/13/18 07:38 06/12/18 21:00 Active Medications Acetaminophen (Tylenol -) 650 mg PO Q4H PRN PRN Reason: PAIN Last Admin: 06/10/18 15:10 Dose: 650 mg Aspirin (Asa -) 81 mg PO DAILY [facility] Last Admin: 06/13/18 09:45 Dose: 81 mg Atorvastatin Calcium (Lipitor -) 20 mg PO HS [facility] Last Admin: 06/12/18 21:41 Dose: 20 mg Carvedilol (Coreg -) 3.125 mg PO BID [facility] Last Admin: 06/13/18 09:45 Dose: 3.125 mg Docusate Sodium (Colace -) 100 mg PO BID PRN PRN Reason: CONSTIPATION Heparin Sodium (Porcine) (Heparin -) 5,000 unit SQ BID [facility] Last Admin: 06/13/18 09:45 Dose: 5,000 unit Hydrochlorothiazide (Hctz -) 25 mg PO DAILY [facility] Last Admin: 06/13/18 09:45 Dose: 25 mg Lidocaine (Lidoderm Patch -) 1 patch TP DAILY [facility] Last Admin: 06/13/18 09:45 Dose: 1 patch Lisinopril (Prinivil) 10 mg PO DAILY [facility] Last Admin: 06/13/18 09:45 Dose: 10 mg Miscellaneous (Lidoderm Patch Removal) 1 each MC DAILY@2200 [facility] Last Admin: 06/12/18 21:48 Dose: 1 each Oxycodone HCl (Roxicodone -) 5 mg PO Q6H PRN PRN Reason: PAIN LEVEL 6-10 Last Admin: 06/13/18 08:38 Dose: 5 mg Pantoprazole Sodium (Protonix -) 40 mg PO DAILY [facility] Last Admin: 11/27/18 09:45 Dose: 40 mg Prednisone (Deltasone -) 5 mg PO DAILY [facility] Last Admin: 06/13/18 09:45 Dose: 5 mg Sodium Chloride (Normal Saline For Inhalation -) 3 ml IH Q6H PRN PRN Reason: COUGH Gen: mildly tachypneic with speaking Heart: RRR Lung: decreased breath sounds at the bases Abd: soft, nontender Ext: no edema Laboratory Results - last 24 hr 06/12/18 06/13/18 06/13/18 15:40 07:00 07:00 WBC 8.9 RBC 4.66 Hgb 14.3 Hct 42.0 MCV 90.2 MCH 30.8 MCHC 34.2 RDW 14.8 Plt Count 213 MPV 10.5 Absolute Neuts (auto) 6.0 Neutrophils % 67.8 Lymphocytes % 19.1 Monocytes % 10.1 Eosinophils % 2.6 D Basophils % 0.4 Nucleated RBC % 0 PT with INR INR Puncture Site Right radial ABG pH 7.40 ABG pCO2 at Pt Temp 49.6 H ABG pO2 at Pt Temp 133.0 H ABG HCO3 29.8 H ABG O2 Sat (Measured) 98.4 ABG O2 Content 19.0 ABG Base Excess 4.4 H Delano Test Positive Oxygen Flow Rate Nasal 3l Sodium 136 Potassium 4.7 Chloride 93 L Carbon Dioxide 35 H Anion Gap 7 L BUN 98 H Creatinine 2.3 H Creat Clearance w eGFR 28.42 Random Glucose 95 Calcium 9.5 Total Bilirubin 0.7 AST 43 H ALT 53 Alkaline Phosphatase 86 Total Protein 7.5 Albumin 4.1 06/13/18 07:00 WBC RBC Hgb Hct MCV MCH MCHC RDW Plt Count MPV Absolute Neuts (auto) Neutrophils % Lymphocytes % Monocytes % Eosinophils % Basophils % Nucleated RBC % PT with INR 10.90 INR 0.92 Puncture Site ABG pH ABG pCO2 at Pt Temp ABG pO2 at Pt Temp ABG HCO3 ABG O2 Sat (Measured) ABG O2 Content ABG Base Excess Delano Test Oxygen Flow Rate Sodium Potassium Chloride Carbon Dioxide Anion Gap BUN Creatinine Creat Clearance w eGFR Random Glucose Calcium Total Bilirubin AST ALT Alkaline Phosphatase Total Protein Albumin A/P Progressive ALS HTN Hypercholesterolemia - monitor vital capacity, NIF - O2 to keep SpO2 >90% - Recommended for NIPPV at night and PRN during day: Arrangements are being arranged for a Triology device due to progressive ALS and respiratory failure and failure of gas exchange - DVT prophylaxis - D/C planning Dr Sinha
--- NOTE | 2018-06-13 12:40 | PN ---
Progress Note, [employer] - Note Progress Note: Selected Entries 06/12/18 06/12/18 06/12/18 10:20 14:33 18:30 Breakfast 50% Lunch 50% Supper 50% Temperature 06/13/18 06/13/18 06/13/18 07:38 10:00 11:27 Breakfast 75% Lunch Supper Temperature 97.5 F L 97.6 F Laboratory Tests 06/13/18 07:00 WBC 8.9 Pt on reg chopped, with bread and whole cherries on tray. Suggest Dys Chopped and [place] thick liquid. Consider NH placement vs [place]. Continued deterioration in ADL and swallowing is expected unfortunately with Motor Neuron Disease. Pt resides alone
--- NOTE | 2018-06-13 12:44 | PN ---
Progress Note (short form) - Note Progress Note: weakness ambulates using cane, slow steps voice is hoarse Vital Signs - 24 hr 06/12/18 06/12/18 06/12/18 14:33 16:30 21:00 Temperature 98.9 F 97.4 F L Pulse Rate 81 105 H Respiratory 20 18 Rate Blood Pressure 109/67 127/46 L O2 Sat by Pulse 97 Oximetry (%) 06/12/18 06/13/18 06/13/18 22:00 07:38 09:00 Temperature 97.9 F 97.5 F L Pulse Rate 64 62 Respiratory 18 20 20 Rate Blood Pressure 120/70 159/82 O2 Sat by Pulse 97 Oximetry (%) 06/13/18 10:00 Temperature 97.6 F Pulse Rate 70 Respiratory 20 Rate Blood Pressure 111/65 O2 Sat by Pulse Oximetry (%) Current Medications Generic Name Dose Route Start Last Admin Trade Name Freq PRN Reason Stop Dose Admin Acetaminophen 650 mg 06/10/18 13:37 06/10/18 15:10 Tylenol - PO 650 mg Q4H PRN Administration PAIN Aspirin 81 mg 06/08/18 10:00 06/13/18 09:45 Asa - PO 81 mg DAILY [facility] Administration Atorvastatin Calcium 20 mg 06/07/18 22:00 06/12/18 21:41 Lipitor - PO 20 mg HS [facility] Administration Carvedilol 3.125 mg 06/07/18 22:00 06/13/18 09:45 Coreg - PO 3.125 mg BID [facility] Administration Docusate Sodium 100 mg 06/12/18 10:51 Colace - PO BID PRN CONSTIPATION Heparin Sodium (Porcine) 5,000 unit 06/07/18 22:00 06/13/18 09:45 Heparin - SQ 5,000 unit BID [facility] Administration Hydrochlorothiazide 25 mg 06/08/18 10:00 06/13/18 09:45 Hctz - PO 25 mg DAILY [facility] Administration Lidocaine 1 patch 06/10/18 13:45 06/13/18 09:45 Lidoderm Patch - TP 1 patch DAILY [facility] Administration Lisinopril 10 mg 06/08/18 10:00 06/13/18 09:45 Prinivil PO 10 mg DAILY [facility] Administration Miscellaneous 1 each 06/10/18 22:00 06/12/18 21:48 Lidoderm Patch Removal MC 1 each DAILY@2200 [facility] Administration Oxycodone HCl 10 mg 06/13/18 12:27 Roxicodone - PO Q6H PRN PAIN LEVEL 6-10 Pantoprazole Sodium 40 mg 06/08/18 10:00 06/13/18 09:45 Protonix - PO 40 mg DAILY [facility] Administration Prednisone 5 mg 06/10/18 13:37 06/13/18 09:45 Deltasone - PO 5 mg DAILY [facility] Administration Sodium Chloride 3 ml 06/07/18 11:45 Normal Saline For Inhalation - IH Q6H PRN COUGH Laboratory Results - last 24 hr 06/12/18 06/13/18 06/13/18 15:40 07:00 07:00 WBC 8.9 RBC 4.66 Hgb 14.3 Hct 42.0 MCV 90.2 MCH 30.8 MCHC 34.2 RDW 14.8 Plt Count 213 MPV 10.5 Absolute Neuts (auto) 6.0 Neutrophils % 67.8 Lymphocytes % 19.1 Monocytes % 10.1 Eosinophils % 2.6 D Basophils % 0.4 Nucleated RBC % 0 PT with INR INR Puncture Site Right radial ABG pH 7.40 ABG pCO2 at Pt Temp 49.6 H ABG pO2 at Pt Temp 133.0 H ABG HCO3 29.8 H ABG O2 Sat (Measured) 98.4 ABG O2 Content 19.0 ABG Base Excess 4.4 H Delano Test Positive Oxygen Flow Rate Nasal 3l Sodium 136 Potassium 4.7 Chloride 93 L Carbon Dioxide 35 H Anion Gap 7 L BUN 98 H Creatinine 2.3 H Creat Clearance w eGFR 28.42 Random Glucose 95 Calcium 9.5 Total Bilirubin 0.7 AST 43 H ALT 53 Alkaline Phosphatase 86 Total Protein 7.5 Albumin 4.1 06/13/18 07:00 WBC RBC Hgb Hct MCV MCH MCHC RDW Plt Count MPV Absolute Neuts (auto) Neutrophils % Lymphocytes % Monocytes % Eosinophils % Basophils % Nucleated RBC % PT with INR 10.90 INR 0.92 Puncture Site ABG pH ABG pCO2 at Pt Temp ABG pO2 at Pt Temp ABG HCO3 ABG O2 Sat (Measured) ABG O2 Content ABG Base Excess Delano Test Oxygen Flow Rate Sodium Potassium Chloride Carbon Dioxide Anion Gap BUN Creatinine Creat Clearance w eGFR Random Glucose Calcium Total Bilirubin AST ALT Alkaline Phosphatase Total Protein Albumin s1 S2 RRR Lungs decreased ABd- soft, NT No edema weakness left arm PLAN rapidly progressive disease per Neurology voice is now hoarse-- diet according to swallow therapist I spoke to the pt in detail about advance directives--pt does not want peg tube or ventilator+trach he needs to sign [facility] form avoid aspiration dc prednisone GI eval appreciated nay need to be transferred to SNF prognosis poor Problem List - Problems (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
[2018-06-13] MEDS: ATORVASTATIN CA 20 MG TABLET (FP) PO SCH (23:50)
[2018-06-13] MEDS: LIDOCAINE PATCH REMOVAL MC SCH (23:51)
[2018-06-14] MEDS: oxyCODONE HCL 5 MG TABLET PO PRN ×2 (06:35→14:26)
[2018-06-14] MEDS: HEPARIN NA (PORCINE) 5,000 UNITS/ML 1ML VIAL SQ SCH ×2 (09:15→21:04)
[2018-06-14] MEDS: ASPIRIN 81 MG CHEWABLE TABLETS PO SCH (09:15)
[2018-06-14] MEDS: predniSONE 5 MG TABLET (UD) PO SCH (09:15)
[2018-06-14] MEDS: HYDROCHLOROTHIAZIDE 25 MG TABLET (FP) PO SCH (09:15)
[2018-06-14] MEDS: LISINOPRIL 10 MG TABLET (FP) PO SCH (09:15)
[2018-06-14] MEDS: CARVEDILOL 3.125 MG TABLET (FP) PO SCH ×2 (09:15→21:04)
--- NOTE | 2018-06-14 09:15 | PN ---
Progress Note (short form) - Note Progress Note: The patient was seen briefly. His pain level for his L-rib cage area was at a 10. His nurse indicated that she was going to place it right away. His appetite was suppressed as it was yesterday. His mood was dysthymic. He will be seen tomorrow. Problem List - Problems (1) Depressed Code(s): F32.9 - MAJOR DEPRESSIVE DISORDER, SINGLE EPISODE, UNSPECIFIED Qualifiers: Depression Type: major depressive disorder Major depression recurrence: recurrent Active/Remission status: currently active Major depression episode severity: severe Psychotic features: without psychotic features Qualified Code(s): F33.2 - Major depressive disorder, recurrent severe without psychotic features (2) Anxiety and depression Code(s): F41.9 - ANXIETY DISORDER, UNSPECIFIED; F32.9 - MAJOR DEPRESSIVE DISORDER, SINGLE EPISODE, UNSPECIFIED
[2018-06-14] MEDS: LIDOCAINE 5% TOPICAL PATCH TP SCH (09:16)
[2018-06-14] MEDS: PANTOPRAZOLE 40 MG TABLET (FP) PO SCH (09:16)
--- NOTE | 2018-06-14 09:21 | PN ---
Progress Note (short form) - Note Progress Note: This is a corrected edit on the previous note. The patient asked for the analgesic patch as his pain level for his L-rib cage was at a 10. His mood was dysthymic. His appetite was suppressed but he ate as much as he could force himself to eat. His nurse indicated that she would administer the patch right away. and that comforted the patient somewhat. He was appreciative of the assistance. Problem List - Problems (1) Depressed Code(s): F32.9 - MAJOR DEPRESSIVE DISORDER, SINGLE EPISODE, UNSPECIFIED Qualifiers: Depression Type: major depressive disorder Major depression recurrence: recurrent Active/Remission status: currently active Major depression episode severity: severe Psychotic features: without psychotic features Qualified Code(s): F33.2 - Major depressive disorder, recurrent severe without psychotic features (2) Anxiety and depression Code(s): F41.9 - ANXIETY DISORDER, UNSPECIFIED; F32.9 - MAJOR DEPRESSIVE DISORDER, SINGLE EPISODE, UNSPECIFIED
[2018-06-14] MEDS ORDERED: MORPHINE SULFATE 2 MG/ML VIAL IVPUSH PRN (11:57)
--- NOTE | 2018-06-14 11:59 | PN ---
Progress Note (short form) - Note Progress Note: weakness ambulates using cane, slow steps voice is hoarse now c/o back pain and left sided rib pain Xray negative for fracture C/o numbness on tongue Vital Signs - 24 hr 06/13/18 06/13/18 06/13/18 15:15 16:30 21:00 Temperature 97.4 F L 97.8 F Pulse Rate 78 116 H Respiratory 18 18 Rate Blood Pressure 104/80 112/56 L O2 Sat by Pulse 97 Oximetry (%) 06/13/18 06/14/18 06/14/18 22:00 06:53 09:00 Temperature 97.4 F L 97.4 F L Pulse Rate 70 100 H Respiratory 18 20 Rate Blood Pressure 132/56 L 110/69 O2 Sat by Pulse 97 Oximetry (%) Current Medications Generic Name Dose Route Start Last Admin Trade Name Freq PRN Reason Stop Dose Admin Acetaminophen 650 mg 06/10/18 13:37 06/10/18 15:10 Tylenol - PO 650 mg Q4H PRN Administration PAIN Aspirin 81 mg 06/08/18 10:00 06/14/18 09:15 Asa - PO 81 mg DAILY STEFFNAIE Administration Atorvastatin Calcium 20 mg 06/07/18 22:00 06/13/18 23:50 Lipitor - PO 20 mg HS STEFFANIE Administration Carvedilol 3.125 mg 06/07/18 22:00 06/14/18 09:15 Coreg - PO 3.125 mg BID STEFFANIE Administration Docusate Sodium 100 mg 06/12/18 10:51 Colace - PO BID PRN CONSTIPATION Heparin Sodium (Porcine) 5,000 unit 06/07/18 22:00 06/14/18 09:15 Heparin - SQ 5,000 unit BID STEFFANIE Administration Hydrochlorothiazide 25 mg 06/08/18 10:00 06/14/18 09:15 Hctz - PO 25 mg DAILY STEFFANIE Administration Lidocaine 1 patch 06/10/18 13:45 06/14/18 09:16 Lidoderm Patch - TP 1 patch DAILY STEFFANIE Administration Lisinopril 10 mg 06/08/18 10:00 06/14/18 09:15 Prinivil PO 10 mg DAILY STEFFANIE Administration Miscellaneous 1 each 06/10/18 22:00 06/13/18 23:51 Lidoderm Patch Removal MC 1 each DAILY@2200 STEFFANIE Administration Morphine Sulfate 1 mg 06/14/18 11:57 Morphine Injection - IVPUSH Q4H PRN PAIN LEVEL 7 - 10 Oxycodone HCl 10 mg 06/13/18 12:27 06/14/18 06:35 Roxicodone - PO 10 mg Q6H PRN Administration PAIN LEVEL 6-10 Pantoprazole Sodium 40 mg 06/08/18 10:00 06/14/18 09:16 Protonix - PO 40 mg DAILY STEFFANIE Administration Sodium Chloride 3 ml 06/07/18 11:45 Normal Saline For Inhalation - IH Q6H PRN COUGH s1 S2 RRR Lungs decreased ABd- soft, NT No edema weakness left arm PLAN rapidly progressive disease per Neurology voice is now hoarse-tongue numb- diet according to swallow therapist I spoke to the pt in detail about advance directives--pt does not want peg tube or ventilator+trach -- spoke to PMD- Dr Oglesby who agrees to the same he needs to sign MOLST form avoid aspiration dc prednisone GI eval appreciated nay need to be transferred to SNF prognosis poor pain control spoke with sister !- in [place]- she is estranged from him but pt gave informed consent to speak with her-- he also has two daughters in [place] who she will be contacting may need to consider hospice Problem List - Problems (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
[2018-06-14] MEDS: MORPHINE SULFATE 2 MG/ML VIAL SQ PRN ×3 (12:25→21:04)
--- NOTE | 2018-06-14 12:54 | PN ---
Progress Note, [employer] - Note Progress Note: Selected Entries 06/12/18 06/12/18 06/12/18 10:20 14:33 18:30 Breakfast 50% Lunch 50% Supper 50% Temperature 06/13/18 06/13/18 06/13/18 07:38 10:00 11:27 Breakfast 75% Lunch Supper Temperature 97.5 F L 97.6 F Laboratory Tests 06/13/18 07:00 WBC 8.9 Selected Entries 06/13/18 06/13/18 06/13/18 11:27 15:15 18:30 Breakfast 75% Lunch 75% Supper 75% 06/14/18 11:47 Breakfast 25% Lunch Supper Laboratory Tests 06/13/18 07:00 WBC 8.9 Dys Chopped and thin liquid. Reported to be tolerating it. Monitor for need to downgrade to nectar. MBS as indicated in future, to monitor swallowing changes and minimize aspiration risk. Seen by Palliative care-NH placement Continued deterioration in ADL and swallowing is expected unfortunately with Motor Neuron Disease.
--- NOTE | 2018-06-14 15:52 | PN ---
Progress Note, Physician History of Present Illness: PULMONARY oob-chair,-resp distress - Current Medication List Current Medications: Active Medications Acetaminophen (Tylenol -) 650 mg PO Q4H PRN PRN Reason: PAIN Last Admin: 06/10/18 15:10 Dose: 650 mg Aspirin (Asa -) 81 mg PO DAILY [facility] Last Admin: 06/14/18 09:15 Dose: 81 mg Atorvastatin Calcium (Lipitor -) 20 mg PO HS [facility] Last Admin: 06/13/18 23:50 Dose: 20 mg Carvedilol (Coreg -) 3.125 mg PO BID [facility] Last Admin: 06/14/18 09:15 Dose: 3.125 mg Docusate Sodium (Colace -) 100 mg PO BID PRN PRN Reason: CONSTIPATION Heparin Sodium (Porcine) (Heparin -) 5,000 unit SQ BID [facility] Last Admin: 06/14/18 09:15 Dose: 5,000 unit Hydrochlorothiazide (Hctz -) 25 mg PO DAILY [facility] Last Admin: 06/14/18 09:15 Dose: 25 mg Lidocaine (Lidoderm Patch -) 1 patch TP DAILY [facility] Last Admin: 06/14/18 09:16 Dose: 1 patch Lisinopril (Prinivil) 10 mg PO DAILY [facility] Last Admin: 06/14/18 09:15 Dose: 10 mg Miscellaneous (Lidoderm Patch Removal) 1 each MC DAILY@2200 [facility] Last Admin: 06/13/18 23:51 Dose: 1 each Morphine Sulfate (Morphine Sulfate) 1 mg SQ Q4H PRN PRN Reason: PAIN LEVEL 7 - 10 Last Admin: 06/14/18 12:25 Dose: 1 mg Oxycodone HCl (Roxicodone -) 10 mg PO Q6H PRN PRN Reason: PAIN LEVEL 6-10 Last Admin: 06/14/18 14:26 Dose: 10 mg Pantoprazole Sodium (Protonix -) 40 mg PO DAILY [facility] Last Admin: 06/14/18 09:16 Dose: 40 mg Sodium Chloride (Normal Saline For Inhalation -) 3 ml IH Q6H PRN PRN Reason: COUGH - Objective Vital Signs: Vital Signs Temperature 97.4 F L 06/14/18 15:37 Pulse Rate 102 H 06/14/18 15:37 Respiratory Rate 18 06/14/18 15:37 Blood Pressure 110/52 L 06/14/18 15:37 O2 Sat by Pulse Oximetry (%) 97 06/14/18 09:00 Constitutional: Yes: Calm, Thin Eyes: Yes: WNL HENT: Yes: WNL Neck: Yes: WNL Cardiovascular: Yes: Regular Rate and Rhythm, S1, S2 Respiratory: Yes: CTA Bilaterally Gastrointestinal: Yes: Normal Bowel Sounds, Soft Extremities: Yes: WNL Edema: No Labs: CBC, BMP Assessment/Plan A/P Progressive ALS HTN Hypercholesterolemia - monitor vital capacity, NIF - O2 to keep SpO2 >90% - Recommended for NIPPV at night and PRN during day: Arrangements are being arranged for a Triology device due to progressive ALS and respiratory failure and failure of gas exchange - DVT prophylaxis - Pt refusing nippv DR QUINONES
[2018-06-14] MEDS: ACETAMINOPHEN 325 MG TABLET (FP) PO PRN (20:05)
[2018-06-14] MEDS: ATORVASTATIN CA 20 MG TABLET (FP) PO SCH (21:04)
[2018-06-14] MEDS: LIDOCAINE PATCH REMOVAL MC SCH (21:04)
[2018-06-15] MEDS: MORPHINE SULFATE 2 MG/ML VIAL SQ PRN (08:36)
--- NOTE | 2018-06-15 08:52 | PN ---
Progress Note (short form) - Note Progress Note: No acute events overnight. Apparently refused Respiratory parameters yesterday. Still mildly tachypneic with speaking, but likely new baseline. Some dry cough. Intake & Output 06/12/18 06/13/18 06/14/18 06/15/18 23:59 23:59 23:59 23:59 Intake Total 240 680 620 Output Total 300 Balance -60 680 620 Last Vital Signs Temp Pulse Resp BP Pulse Ox 97.8 F 84 20 112/65 97 06/15/18 06:16 06/15/18 06:16 06/15/18 06:16 06/15/18 06:16 06/14/18 21:00 Active Medications Acetaminophen (Tylenol -) 650 mg PO Q4H PRN PRN Reason: PAIN Last Admin: 06/14/18 20:05 Dose: 650 mg Aspirin (Asa -) 81 mg PO DAILY [facility] Last Admin: 06/14/18 09:15 Dose: 81 mg Atorvastatin Calcium (Lipitor -) 20 mg PO HS [facility] Last Admin: 06/14/18 21:04 Dose: 20 mg Carvedilol (Coreg -) 3.125 mg PO BID [facility] Last Admin: 06/14/18 21:04 Dose: Not Given Docusate Sodium (Colace -) 100 mg PO BID PRN PRN Reason: CONSTIPATION Heparin Sodium (Porcine) (Heparin -) 5,000 unit SQ BID [facility] Last Admin: 06/14/18 21:04 Dose: 5,000 unit Hydrochlorothiazide (Hctz -) 25 mg PO DAILY [facility] Last Admin: 06/14/18 09:15 Dose: 25 mg Lidocaine (Lidoderm Patch -) 1 patch TP DAILY [facility] Last Admin: 06/14/18 09:16 Dose: 1 patch Lisinopril (Prinivil) 10 mg PO DAILY [facility] Last Admin: 06/14/18 09:15 Dose: 10 mg Miscellaneous (Lidoderm Patch Removal) 1 each MC DAILY@2200 [facility] Last Admin: 06/14/18 21:04 Dose: 1 each Morphine Sulfate (Morphine Sulfate) 1 mg SQ Q4H PRN PRN Reason: PAIN LEVEL 7 - 10 Last Admin: 06/14/18 21:04 Dose: 1 mg Oxycodone HCl (Roxicodone -) 10 mg PO Q6H PRN PRN Reason: PAIN LEVEL 6-10 Last Admin: 06/14/18 14:26 Dose: 10 mg Pantoprazole Sodium (Protonix -) 40 mg PO DAILY [facility] Last Admin: 06/14/18 09:16 Dose: 40 mg Sodium Chloride (Normal Saline For Inhalation -) 3 ml IH Q6H PRN PRN Reason: COUGH Gen: NAD, mildly tachypneic with speaking Heart: RRR Lung: decreased breath sounds at the bases Abd: soft, nontender Ext: no edema A/P Progressive ALS HTN Hypercholesterolemia - monitor vital capacity, NIF if patient is willing - O2 to keep SpO2 >90% - D/C planning - Arrangements are being arranged for a Triology device: patient requires ventilation via a Non-invasive ventilator as BiLevel is no longer effective in his treatment to effectively his work of breathing and to improve his pulmonary status and prevent interruption or failure of respiratory support due to worsening of his ALS. Dr Sinha
--- NOTE | 2018-06-15 09:07 | PN ---
Progress Note (short form) - Note Progress Note: The patient was seen briefly and there was no change in his status. His pain was severe and his appetite was poor. He was able to use the call button with encouragement. The patient was able to rise from a seated position without difficulty and ambulate from his chair to the front of his bed. He experienced difficulty voicing his requests due to his condition. He indicated that he was not interested in psychotherapeutic intervention. If desired by him in the future, a request can be forwarded to us for counseling. Problem List - Problems (1) Depressed Code(s): F32.9 - MAJOR DEPRESSIVE DISORDER, SINGLE EPISODE, UNSPECIFIED Qualifiers: Depression Type: major depressive disorder Major depression recurrence: recurrent Active/Remission status: currently active Major depression episode severity: severe Psychotic features: without psychotic features Qualified Code(s): F33.2 - Major depressive disorder, recurrent severe without psychotic features (2) Anxiety and depression Code(s): F41.9 - ANXIETY DISORDER, UNSPECIFIED; F32.9 - MAJOR DEPRESSIVE DISORDER, SINGLE EPISODE, UNSPECIFIED
[2018-06-15] MEDS: CARVEDILOL 3.125 MG TABLET (FP) PO SCH ×2 (09:33→22:26)
[2018-06-15] MEDS: HYDROCHLOROTHIAZIDE 25 MG TABLET (FP) PO SCH (09:34)
[2018-06-15] MEDS: LIDOCAINE 5% TOPICAL PATCH TP SCH (09:34)
[2018-06-15] MEDS: HEPARIN NA (PORCINE) 5,000 UNITS/ML 1ML VIAL SQ SCH ×2 (09:34→22:23)
[2018-06-15] MEDS: PANTOPRAZOLE 40 MG TABLET (FP) PO SCH (09:35)
[2018-06-15] MEDS: LISINOPRIL 10 MG TABLET (FP) PO SCH (09:35)
[2018-06-15] MEDS: ASPIRIN 81 MG CHEWABLE TABLETS PO SCH (10:00)
[2018-06-15] MEDS ORDERED: FENTANYL PATCH WASTE MC PRN (12:16)
--- NOTE | 2018-06-15 12:58 | PN ---
Progress Note (short form) - Note Progress Note: weakness ambulates using cane, slow steps voice is hoarse c/o back pain and left sided rib pain -- Morphine 1mg not helping him Xray negative for fracture C/o numbness on tongue difficult to eat puree diet Vital Signs - 24 hr 06/14/18 06/14/18 06/14/18 15:37 16:30 21:00 Temperature 97.4 F L Pulse Rate 102 H 84 Respiratory 18 18 Rate Blood Pressure 110/52 L 94/66 O2 Sat by Pulse 97 Oximetry (%) 06/14/18 06/15/18 06/15/18 22:00 06:16 10:00 Temperature 97.4 F L 97.8 F 97.3 F L Pulse Rate 82 84 119 H Respiratory 18 20 20 Rate Blood Pressure 104/47 L 112/65 97/60 O2 Sat by Pulse Oximetry (%) Current Medications Generic Name Dose Route Start Last Admin Trade Name Freq PRN Reason Stop Dose Admin Acetaminophen 650 mg 06/10/18 13:37 06/14/18 20:05 Tylenol - PO 650 mg Q4H PRN Administration PAIN Aspirin 81 mg 06/08/18 10:00 06/15/18 10:00 Asa - PO Not Given DAILY [facility] Atorvastatin Calcium 20 mg 06/07/18 22:00 06/14/18 21:04 Lipitor - PO 20 mg HS STEFFANIE Administration Carvedilol 3.125 mg 06/07/18 22:00 06/15/18 09:33 Coreg - PO Not Given BID STEFFANIE Docusate Sodium 100 mg 06/12/18 10:51 Colace - PO BID PRN CONSTIPATION Fentanyl 1 patch 06/15/18 12:30 Duragesic 25mcg Patch - TD 06/22/18 12:16 Q72H STEFFANIE Heparin Sodium (Porcine) 5,000 unit 06/07/18 22:00 06/15/18 09:34 Heparin - SQ 5,000 unit BID STEFFANIE Administration Hydrochlorothiazide 25 mg 06/08/18 10:00 06/15/18 09:34 Hctz - PO Not Given DAILY STEFFANIE Lidocaine 1 patch 06/10/18 13:45 06/15/18 09:34 Lidoderm Patch - TP 1 patch DAILY STEFFANIE Administration Miscellaneous 1 each 06/10/18 22:00 06/14/18 21:04 Lidoderm Patch Removal MC 1 each DAILY@2200 STEFFANIE Administration Miscellaneous 1 each 06/15/18 12:16 Duragesic Patch Waste MC PRN PRN PAIN Morphine Sulfate 2 mg 06/15/18 12:17 Morphine Sulfate IV Q4H PRN PAIN LEVEL 7 - 10 Oxycodone HCl 10 mg 06/13/18 12:27 06/14/18 14:26 Roxicodone - PO 10 mg Q6H PRN Administration PAIN LEVEL 6-10 Pantoprazole Sodium 40 mg 06/08/18 10:00 06/15/18 09:35 Protonix - PO Not Given DAILY STEFFANIE Sodium Chloride 3 ml 06/07/18 11:45 Normal Saline For Inhalation - IH Q6H PRN COUGH s1 S2 RRR Lungs decreased ABd- soft, NT No edema weakness left arm PLAN rapidly progressive disease per Neurology voice is hoarse-tongue numb- diet according to swallow therapist pt is DNR/DNI avoid aspiration dc prednisone nay need to be transferred to SNF prognosis poor pain control daughter at bedside Spoke to her with pt's permission, along with palliative nurse Problem List - Problems (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
[2018-06-15] MEDS: fentaNYL 25mcg/hr PATCH.TD72 TD SCH (13:17)
[2018-06-15] MEDS: MORPHINE SULFATE 2 MG/ML VIAL IV PRN ×2 (14:51→23:04)
[2018-06-15] MEDS: ATORVASTATIN CA 20 MG TABLET (FP) PO SCH (22:23)
[2018-06-15] MEDS: LIDOCAINE PATCH REMOVAL MC SCH (22:23)
[2018-06-16] MEDS: MORPHINE SULFATE 2 MG/ML VIAL IV PRN ×4 (03:10→18:02)
--- NOTE | 2018-06-16 05:25 | FALL ---
Fall Exam - Event Witnessed fall: No Location of Fall: Patient Room Fall from: [facility] - Pre-Fall Mental Status: Alert Current Medications: Current Medications Generic Name Dose Route Start Last Admin Trade Name Freq PRN Reason Stop Dose Admin Acetaminophen 650 mg 06/10/18 13:37 06/14/18 20:05 Tylenol - PO 650 mg Q4H PRN Administration PAIN Aspirin 81 mg 06/08/18 10:00 06/15/18 10:00 Asa - PO Not Given DAILY STEFFANIE Atorvastatin Calcium 20 mg 06/07/18 22:00 06/15/18 22:23 Lipitor - PO 20 mg HS STEFFANIE Administration Carvedilol 3.125 mg 06/07/18 22:00 06/15/18 22:26 Coreg - PO 3.125 mg BID STEFFANIE Administration Docusate Sodium 100 mg 06/12/18 10:51 Colace - PO BID PRN CONSTIPATION Fentanyl 1 patch 06/15/18 12:30 06/15/18 13:17 Duragesic 25mcg Patch - TD 06/22/18 12:16 1 patch Q72H STEFFANIE Administration Heparin Sodium (Porcine) 5,000 unit 06/07/18 22:00 06/15/18 22:23 Heparin - SQ 5,000 unit BID STEFFANIE Administration Hydrochlorothiazide 25 mg 06/08/18 10:00 06/15/18 09:34 Hctz - PO Not Given DAILY STEFF[facility]IE Lidocaine 1 patch 06/10/18 13:45 06/15/18 09:34 Lidoderm Patch - TP 1 patch DAILY STEFFANIE Administration Miscellaneous 1 each 06/10/18 22:00 06/15/18 22:23 Lidoderm Patch Removal MC 1 each DAILY@2200 STEFFANIE Administration Miscellaneous 1 each 06/15/18 12:16 Duragesic Patch Waste MC PRN PRN PAIN Morphine Sulfate 2 mg 06/15/18 12:17 06/16/18 03:10 Morphine Sulfate IV 2 mg Q4H PRN Administration PAIN LEVEL 7 - 10 Oxycodone HCl 10 mg 06/13/18 12:27 06/14/18 14:26 Roxicodone - PO 10 mg Q6H PRN Administration PAIN LEVEL 6-10 Pantoprazole Sodium 40 mg 06/08/18 10:00 06/15/18 09:35 Protonix - PO Not Given DAILY STEFFANIE Sodium Chloride 3 ml 06/07/18 11:45 Normal Saline For Inhalation - IH Q6H PRN COUGH - Post-Fall Patient Outcome: Laceration, Abrasion/Bruise (L- superior aspect shoulder, L- lateral aspect of knee/leg) Exam Findings: AAOx3, Normocephalic, +approx 2cm lac to L- lateral, parietal aspect of scalp no active bleed, PERRL, +EOMIs, Neck- supple, non-tender, FROM, Lungs- diminshed, S1,S2, no M/G/R, Abd- soft, non-tender, BS present, Hip/pelvis , non-tender, Extremities- FROM, non-tender to palpation. Treatment: Dressing (saline- dsd- bacitracin to L- superior shoulder, L- lateral knee), Sutures (han to lateral parietal aspect of head) Vital Signs: Vital Signs Temperature 97.5 F L 06/15/18 22:00 Pulse Rate 87 06/15/18 22:00 Respiratory Rate 20 06/15/18 22:00 Blood Pressure 106/67 06/15/18 22:00 O2 Sat by Pulse Oximetry (%) 98 06/15/18 21:00 LOC Post-Fall: Unchanged Identify factors for HIGH RISK for Head Injury: Pt on anticoagulant
[2018-06-16] MEDS ORDERED: BACITRACIN 15 GM TUBE TOPICAL OINTMENT TP ONE (05:39)
--- NOTE | 2018-06-16 07:02 | HOSP ---
Subjective - Review of Symptoms Events since last encounter: Hospitalist Encounter Notified by RN that the patient was found on the floor. Subjective: Arrived to bedside, patient is awake, alert and oriented x3 sitting on a commode. Patient reports not wanting to lay in the bed, so he got up and fell hitting his head. Patient denies LOC. PE performed see EMR Plan: Head CT Head Lac- han TD Vaccine Wound Care Fall precautions Physical Examination Vital Signs: Vital Signs Temperature 97.5 F L 06/15/18 22:00 Pulse Rate 87 06/15/18 22:00 Respiratory Rate 20 06/15/18 22:00 Blood Pressure 106/67 06/15/18 22:00 O2 Sat by Pulse Oximetry (%) 98 06/15/18 21:00 Constitutional: Yes: No Distress, Calm, Cachectic Eyes: Yes: Conjunctiva Clear, EOM Intact, PERRL HENT: Yes: Normocephalic, Other (2cm left lateral aspect) Neck: Yes: WNL, Supple, Trachea Midline Cardiovascular: Yes: WNL, Regular Rate and Rhythm, S1, S2 Respiratory: Yes: Diminished, On Nasal O2, SOB on Exertion Gastrointestinal: Yes: Normal Bowel Sounds, Soft Musculoskeletal: Yes: WNL Extremities: Yes: WNL Edema: No Peripheral Pulses WNL: Yes Integumentary: Yes: Other (abrasions to left shoulder, left leg/knee) Neurological: Yes: WNL, Alert, Oriented, Cran Nerves II-XII Intact Psychiatric: Yes: WNL, Alert, Oriented Labs: CBC, BMP 06/13/18 07:00 06/13/18 07:00 Current Medications Generic Name Dose Route Start Last Admin Trade Name Freq PRN Reason Stop Dose Admin Acetaminophen 650 mg 06/10/18 13:37 06/14/18 20:05 Tylenol - PO 650 mg Q4H PRN Administration PAIN Aspirin 81 mg 06/08/18 10:00 06/15/18 10:00 Asa - PO Not Given DAILY [facility] Atorvastatin Calcium 20 mg 06/07/18 22:00 06/15/18 22:23 Lipitor - PO 20 mg HS STEFFANIE Administration Bacitracin 1 applic 06/17/18 10:00 Bacitracin - TP DAILY [facility] Carvedilol 3.125 mg 06/07/18 22:00 06/15/18 22:26 Coreg - PO 3.125 mg BID STEFFANIE Administration Diphtheria/Tetanus/Acell Pertussis 0.5 ml 06/16/18 05:37 Adacel Adolescent/Adult - IM 06/16/18 05:38 .ONCE ONE Docusate Sodium 100 mg 06/12/18 10:51 Colace - PO BID PRN CONSTIPATION Fentanyl 1 patch 06/15/18 12:30 06/15/18 13:17 Duragesic 25mcg Patch - TD 06/22/18 12:16 1 patch Q72H STEFFANIE Administration Heparin Sodium (Porcine) 5,000 unit 06/07/18 22:00 06/15/18 22:23 Heparin - SQ 5,000 unit BID STEFFANIE Administration Hydrochlorothiazide 25 mg 06/08/18 10:00 06/15/18 09:34 Hctz - PO Not Given DAILY [facility] Lidocaine 1 patch 06/10/18 13:45 06/15/18 09:34 Lidoderm Patch - TP 1 patch DAILY [facility] Administration Miscellaneous 1 each 06/10/18 22:00 06/15/18 22:23 Lidoderm Patch Removal MC 1 each DAILY@2200 STEFFANIE Administration Miscellaneous 1 each 06/15/18 12:16 Duragesic Patch Waste MC PRN PRN PAIN Morphine Sulfate 2 mg 06/15/18 12:17 06/16/18 03:10 Morphine Sulfate IV 2 mg Q4H PRN Administration PAIN LEVEL 7 - 10 Oxycodone HCl 10 mg 06/13/18 12:27 06/14/18 14:26 Roxicodone - PO 10 mg Q6H PRN Administration PAIN LEVEL 6-10 Pantoprazole Sodium 40 mg 06/08/18 10:00 06/15/18 09:35 Protonix - PO Not Given DAILY [facility] Sodium Chloride 3 ml 06/07/18 11:45 Normal Saline For Inhalation - IH Q6H PRN COUGH Hospitalist Encounter Outcome: Head CT- neg ICH, mass or lesion Han applied to L- scalp lac by ED resident
[2018-06-16] MEDS ORDERED: DIPHTH,PERTUSS(ACELL),TET VAC 0.5 ML VIAL IM ONE (10:00)
--- NOTE | 2018-06-16 10:30 | PN ---
Progress Note (short form) - Note Progress Note: PULMONARY On bedside commode appears stable Gen: NAD, Heart: RRR Lung: decreased breath sounds at the bases Abd: soft, nontender Ext: no edema ct brain/labs/meds noted A/P Progressive ALS HTN Hypercholesterolemia - monitor vital capacity, NIF if patient is willing - O2 to keep SpO2 >90% - Arrangements are being arranged for a Triology device: patient requires ventilation via a Non-invasive ventilator as BiLevel is no longer effective in his treatment to effectively his work of breathing and to improve his pulmonary status and prevent interruption or failure of respiratory support due to worsening of his ALS. 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
--- NOTE | 2018-06-16 10:34 | PN ---
Progress Note (short form) - Note Progress Note: pt seen/ examined chart reviewed weak had fall last night. looks very weak Vital Signs Temp 97.7 F 06/16/18 07:24 Pulse 77 06/16/18 07:24 Resp 16 06/16/18 07:24 BP 95/75 06/16/18 07:24 Pulse Ox 98 06/15/18 21:00 Intake & Output 06/15/18 06/15/18 06/16/18 11:59 23:59 11:59 Intake Total 400 Balance 400 Intake: Oral 400 Other: Voiding Method Bedside Commode Toilet Bedside Commode # Unmeasured Voids Void 1 1 Bowel Movement No No Active Medications Acetaminophen (Tylenol -) 650 mg PO Q4H PRN PRN Reason: PAIN Last Admin: 06/14/18 20:05 Dose: 650 mg Aspirin (Asa -) 81 mg PO DAILY [facility] Last Admin: 06/15/18 10:00 Dose: Not Given Atorvastatin Calcium (Lipitor -) 20 mg PO HS [facility] Last Admin: 06/15/18 22:23 Dose: 20 mg Bacitracin (Bacitracin -) 1 applic TP DAILY [facility] Carvedilol (Coreg -) 3.125 mg PO BID [facility] Last Admin: 06/15/18 22:26 Dose: 3.125 mg Docusate Sodium (Colace -) 100 mg PO BID PRN PRN Reason: CONSTIPATION Fentanyl (Duragesic 25mcg Patch -) 1 patch TD Q72H [facility] Stop: 06/22/18 12:16 Last Admin: 06/15/18 13:17 Dose: 1 patch Heparin Sodium (Porcine) (Heparin -) 5,000 unit SQ BID [facility] Last Admin: 06/15/18 22:23 Dose: 5,000 unit Hydrochlorothiazide (Hctz -) 25 mg PO DAILY [facility] Last Admin: 06/15/18 09:34 Dose: Not Given Lidocaine (Lidoderm Patch -) 1 patch TP DAILY [facility] Last Admin: 06/15/18 09:34 Dose: 1 patch Miscellaneous (Lidoderm Patch Removal) 1 each MC DAILY@2200 [facility] Last Admin: 06/15/18 22:23 Dose: 1 each Miscellaneous (Duragesic Patch Waste) 1 each MC PRN PRN PRN Reason: PAIN Morphine Sulfate (Morphine Sulfate) 2 mg IV Q4H PRN PRN Reason: PAIN LEVEL 7 - 10 Last Admin: 06/16/18 07:29 Dose: 2 mg Oxycodone HCl (Roxicodone -) 10 mg PO Q6H PRN PRN Reason: PAIN LEVEL 6-10 Last Admin: 06/14/18 14:26 Dose: 10 mg Pantoprazole Sodium (Protonix -) 40 mg PO DAILY [facility] Last Admin: 06/15/18 09:35 Dose: Not Given Sodium Chloride (Normal Saline For Inhalation -) 3 ml IH Q6H PRN PRN Reason: COUGH CBC, BMP 06/13/18 07:00 06/13/18 07:00 Physical awake/weak s1 S2 RRR Lungs- clear ABd- soft, No edema weakness left arm PLAN rapidly progressive disease per Neurology pt now in ARF Dehydration pt is DNR/DNI hospice being considered Discussed with Dr. 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
[2018-06-16] MEDS: HYDROCHLOROTHIAZIDE 25 MG TABLET (FP) PO SCH (11:21)
[2018-06-16] MEDS: CARVEDILOL 3.125 MG TABLET (FP) PO SCH ×2 (11:21→21:39)
[2018-06-16] MEDS: ASPIRIN 81 MG CHEWABLE TABLETS PO SCH (11:22)
[2018-06-16] MEDS: PANTOPRAZOLE 40 MG TABLET (FP) PO SCH (11:22)
[2018-06-16] MEDS: HEPARIN NA (PORCINE) 5,000 UNITS/ML 1ML VIAL SQ SCH ×2 (11:22→21:39)
[2018-06-16] MEDS: LIDOCAINE 5% TOPICAL PATCH TP SCH (11:22)
--- NOTE | 2018-06-16 11:46 | PN ---
Progress Note, MEDICAL RECORDS ANALYST - Note Progress Note: Selected Entries 06/15/18 06/15/18 06/15/18 06:16 10:00 15:53 Breakfast 25% Lunch 25% Temperature 97.8 F 97.3 F L 06/15/18 06/15/18 06/16/18 16:30 22:00 05:30 Breakfast Lunch Temperature 97.5 F L 97.5 F L 98 F 06/16/18 06/16/18 07:00 07:24 Breakfast Lunch Temperature 98.2 F 97.7 F Laboratory Tests 06/13/18 07:00 WBC 8.9 Voice progressively more hypophonic. Not eating/drinking much. Pt has declined feeding tube. Readdress? r/o dehydration. Consider IV, until d/c'd? Plan is for placement.
[2018-06-16] MEDS: DEXTROSE 5%-0.45% SALINE 1,000 ML IV SCH (14:05)
[2018-06-16] MEDS: oxyCODONE HCL 5 MG TABLET PO PRN (16:33)
[2018-06-16] MEDS ORDERED: DIPHTH,PERTUSS(ACELL),TET 0.5 ML DISP.SYRIN IM ONE (18:15)
--- NOTE | 2018-06-16 18:44 | CONSULT ---
Consult - text type - Consultation Consultation Note: NEUROLOGY PROGRESS: Events reviewed and discussed with RN. Patient examined. S/P fall with AM with left parietal laceration requiring han. CT of head (reviewed): No traumatic changes EXAM: Clear left parietal staple line. Hypophonic, withdrawn, depressed. No change in strength or neurological exam from admission. IMP: ALS Depression. Fall with asymptomatic head trauma. SUGGEST: Begin citalopram 10 mg PO qd. Can increase to 20 mg next week if tolerated. Will require SNF level of care. Thank you very much, Jeovany Valdez MD
[2018-06-16] MEDS: LIDOCAINE PATCH REMOVAL MC SCH (21:38)
[2018-06-16] MEDS: ATORVASTATIN CA 20 MG TABLET (FP) PO SCH (21:38)
[2018-06-17] MEDS: DEXTROSE 5%-0.45% SALINE 1,000 ML IV SCH (00:18)
[2018-06-17] MEDS: HYDROCHLOROTHIAZIDE 25 MG TABLET (FP) PO SCH (09:12)
[2018-06-17] MEDS: oxyCODONE HCL 5 MG TABLET PO PRN ×2 (09:12→21:42)
[2018-06-17] MEDS: CARVEDILOL 3.125 MG TABLET (FP) PO SCH ×2 (09:13→21:43)
[2018-06-17] MEDS: ASPIRIN 81 MG CHEWABLE TABLETS PO SCH (09:14)
[2018-06-17] MEDS: HEPARIN NA (PORCINE) 5,000 UNITS/ML 1ML VIAL SQ SCH ×2 (09:14→21:43)
[2018-06-17] MEDS: LIDOCAINE 5% TOPICAL PATCH TP SCH (09:14)
[2018-06-17] MEDS: BACITRACIN 15 GM TUBE TOPICAL OINTMENT TP SCH (09:15)
[2018-06-17] MEDS: CITALOPRAM HYDROBROMIDE 10 MG TABLET (FP) PO SCH (09:18)
[2018-06-17] MEDS: PANTOPRAZOLE 40 MG TABLET (FP) PO SCH (09:18)
--- NOTE | 2018-06-17 11:14 | PN ---
Progress Note (short form) - Note Progress Note: PULMONARY Oob to chair Complains of diffuse body pain Gen: NAD, hypophonic Heart: RRR Lung: decreased breath sounds at the bases Abd: soft, nontender Ext: no edema ct brain/labs/meds/neuro eval noted A/P Progressive ALS HTN Hypercholesterolemia Fall w scalp laceration (with nl ct brain) - monitor vital capacity, NIF if patient is willing - O2 to keep SpO2 >90% - Arrangements are being arranged for a Triology device: patient requires ventilation via a Non-invasive ventilator as BiLevel is no longer effective in his treatment to effectively his work of breathing and to improve his pulmonary status and prevent interruption or failure of respiratory support due to worsening of his ALS. 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
--- NOTE | 2018-06-17 13:13 | PN ---
Progress Note (short form) - Note Progress Note: pt seen/ examined chart reviewed Vital Signs Temp 97.6 F 06/17/18 06:30 Pulse 77 06/17/18 06:30 Resp 20 06/17/18 06:30 BP 97/52 L 06/17/18 06:30 Pulse Ox 96 06/16/18 21:00 Intake & Output 06/16/18 06/17/18 06/17/18 23:59 11:59 23:59 Intake Total 400 1320 Balance 400 1320 Intake: IV 400 1200 D5-1/2Ns - 1,000 ml @ 847 056 8206 mls/hr IV ASDIR [facility] Rx#: [id number] Oral 120 Other: Voiding Method Bedside Commode Bedside Commode # Unmeasured Voids Void 1 Bowel Movement No Body Mass Index (BMI) 18.2 Active Medications Acetaminophen (Tylenol -) 650 mg PO Q4H PRN PRN Reason: PAIN Last Admin: 06/14/18 20:05 Dose: 650 mg Aspirin (Asa -) 81 mg PO DAILY [facility] Last Admin: 06/17/18 09:14 Dose: 81 mg Atorvastatin Calcium (Lipitor -) 20 mg PO HS [facility] Last Admin: 06/16/18 21:38 Dose: 20 mg Bacitracin (Bacitracin -) 1 applic TP DAILY [facility] Last Admin: 06/17/18 09:15 Dose: 1 appful Carvedilol (Coreg -) 3.125 mg PO BID [facility] Last Admin: 06/17/18 09:13 Dose: 3.125 mg Citalopram Hydrobromide (Celexa -) 10 mg PO DAILY [facility] Last Admin: 06/17/18 09:18 Dose: 10 mg Docusate Sodium (Colace -) 100 mg PO BID PRN PRN Reason: CONSTIPATION Fentanyl (Duragesic 25mcg Patch -) 1 patch TD Q72H [facility] Stop: 06/22/18 12:16 Last Admin: 06/15/18 13:17 Dose: 1 patch Heparin Sodium (Porcine) (Heparin -) 5,000 unit SQ BID [facility] Last Admin: 06/17/18 09:14 Dose: 5,000 unit Hydrochlorothiazide (Hctz -) 25 mg PO DAILY [facility] Last Admin: 06/17/18 09:12 Dose: 25 mg Dextrose/Sodium Chloride (D5-1/2ns -) 1,000 mls @ 100 mls/hr IV ASDIR [facility] Last Admin: 06/17/18 00:18 Dose: 100 mls/hr Lidocaine (Lidoderm Patch -) 1 patch TP DAILY [facility] Last Admin: 06/17/18 09:14 Dose: 1 patch Miscellaneous (Lidoderm Patch Removal) 1 each MC DAILY@2200 [facility] Last Admin: 06/16/18 21:38 Dose: 1 each Miscellaneous (Duragesic Patch Waste) 1 each MC PRN PRN PRN Reason: PAIN Morphine Sulfate (Morphine Sulfate) 2 mg IV Q4H PRN PRN Reason: PAIN LEVEL 7 - 10 Last Admin: 06/16/18 18:02 Dose: 2 mg Oxycodone HCl (Roxicodone -) 10 mg PO Q6H PRN PRN Reason: PAIN LEVEL 6-10 Last Admin: 06/17/18 09:12 Dose: 10 mg Pantoprazole Sodium (Protonix -) 40 mg PO DAILY [facility] Last Admin: 06/17/18 09:18 Dose: 40 mg Sodium Chloride (Normal Saline For Inhalation -) 3 ml IH Q6H PRN PRN Reason: COUGH CBC, BMP 06/13/18 07:00 06/13/18 07:00 Problem List - Problems (1) ARF (acute renal failure) Code(s): N17.9 - ACUTE KIDNEY FAILURE, UNSPECIFIED (2) Anxiety and depression Code(s): F41.9 - ANXIETY DISORDER, UNSPECIFIED; F32.9 - MAJOR DEPRESSIVE DISORDER, SINGLE EPISODE, UNSPECIFIED (3) Dysphagia Code(s): R13.10 - DYSPHAGIA, UNSPECIFIED (4) 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
[2018-06-17 15:13] LABS: BASO % 0.2 % (0-2.0); EOS % 0.2 % (0-4.5); HEMATOCRIT 34.5 % (35.4-49); LYMPH % 3.3 % (8-40); MCH 31.3 pg (25.7-33.7); MCHC 34.7 g/dl (32.0-35.9); MEAN CELL VOLUME 90.1 fl (80-96); MEAN PLT VOLUME 10.7 fl (7.5-11.1); MONO % 6.8 % (3.8-10.2); NEUT % 89.5 % (42.8-82.8); PLATELET COUNT 149 K/MM3 (134-434); RBC 3.83 M/mm3 (4.00-5.60); RDW 14.9 % (11.9-15.9); WHITE BLOOD COUNT 14.9 K/mm3 (4.0-10.0)
[2018-06-17 15:37] LABS: ALBUMIN 3.4 g/dl (3.4-5.0); ALK PHOS 86 U/L (45-117); ANION GAP 14 MMOL/L (8-16); BILIRUBIN,TOTAL 0.7 mg/dL (0.2-1); CALCIUM 8.2 mg/dL (8.5-10.1); CHLORIDE 90 mmol/L (98-107); CO2 25 mmol/L (21-32); CREATININE 6.8 mg/dL (0.55-1.3); GLUCOSE,RANDOM 127 mg/dL (74-106); SGOT/AST 36 U/L (15-37); SGPT/ALT 38 U/L (13-61); SODIUM 130 mmol/L (136-145); TOT PROT 6.6 g/dl (6.4-8.2)
[2018-06-17 15:40] LABS: BLOOD UREA NITROGEN 183 mg/dL (7-18); POTASSIUM 6.2 mmol/L (3.5-5.1)
[2018-06-17] MEDS ORDERED: SODIUM POLYSTYRENE SULFONATE 15 GM/60 ML BOTTLE PO ONE (16:30)
[2018-06-17] MEDS: ATORVASTATIN CA 20 MG TABLET (FP) PO SCH (21:42)
[2018-06-17] MEDS: LIDOCAINE PATCH REMOVAL MC SCH (21:43)
--- NOTE | 2018-06-17 22:18 | CON.NEP ---
Consult Consult Specialty:: nephrology Referred by:: dr kamari ching Reason for Consultation:: acute kidney failure - History of Present Illness Chief Complaint: gen weakness and gen pain History of Present Illness: Progressive and advanced ALS unable to swallow refuses g tube insertion has been clinically dehydrated noted with rising levels of s creatinine 1.4 to 2.3 to 6,8 with hyperkalemia and rise in BUN 06/06/18 06/08/18 06/13/18 14:12 09:25 07:00 Sodium 136 Potassium 4.7 BUN 54 H 45 H 98 H Creatinine 1.1 1.4 H 2.3 H 06/17/18 14:30 Sodium 130 L Potassium 6.2 H* BUN 183 H* Creatinine 6.8 H he is s/p sono of kidneys and bladder -results pending ray catheter was inserted with 400 cc urine out put suggesting obstructive uropathy - Past Medical History 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 No: Dementia Cardio/Vascular: Yes: HTN Pulmonary: Yes: COPD Gastrointestinal: No: Ascites Hepatobiliary: No: Cirrhosis Renal/: No: Renal Failure Psych: Yes: Depression Musculoskeletal: No: Paraplegia Rheumatology: No: Fibromyalgia Endocrine: No: Diabetes Mellitus - Past Surgical History Additional Surgical History: SHOULDER ARTHROSCOPIC DECOMPRESSION - Alcohol/Substance Use Hx Alcohol Use: No History of Substance Use: reports: None - Smoking History Smoking history: Current every day smoker Have you smoked in the past 12 months: Yes Aproximately how many cigarettes per day: 10 - Social History Usual Living Arrangement: Alone ADL: Independent History of Recent Travel: No Home Medications - Allergies Allergies/Adverse Reactions: Allergies Allergy/AdvReac Type Severity Reaction Status Date / Time No Known Allergies Allergy Verified 06/06/18 13:12 - Home Medications Home Medications: Ambulatory Orders Aspirin [ASA -] 81 mg PO DAILY 06/06/18 Atorvastatin Ca [Lipitor] 20 mg PO DAILY 06/06/18 Carvedilol [Coreg -] 3.125 mg PO BID 06/06/18 Hydrochlorothiazide [Hctz -] 25 mg PO DAILY 06/06/18 Lisinopril [Prinivil] 10 mg PO DAILY 06/06/18 Prednisone [Deltasone] 40 mg PO DAILY 06/06/18 Nephrology Consult - Height Height: 5 ft 11 in - Weight Weight: 131 lb - BMI Body Mass Index (BMI): 18.2 - Lab Results CBC,BMP: CBC, BMP 06/17/18 14:30 06/17/18 14:30 Anion Gap: Anion Gap Anion Gap 14 MMOL/L (8-16) 06/17/18 14:30 - Physical Examination Vital Signs: Vital Signs Temperature 97.8 F 06/17/18 18:14 Pulse Rate 82 06/17/18 18:14 Respiratory Rate 19 06/17/18 18:14 Blood Pressure 92/33 L 06/17/18 18:14 O2 Sat by Pulse Oximetry (%) 96 06/17/18 09:00 Assessment/Plan -dehydration -corie with hyperkalemia -severely depressed GFR -urinary retention -possible obstructive uropathy awaiting results of sono done earlier Plan change ivf to d5NS strict i and o f/u labs check FENa
[2018-06-17 23:40] LABS: URINE APPEARANCE SLCLOUDY; URINE BILIRUBIN NEGATIVE (<2.0 mg/dL); URINE COLOR YELLOW; URINE GLUCOSE (UA) NEGATIVE (NEGATIVE); URINE KETONE NEGATIVE (NEGATIVE); URINE LEUK ESTERASE NEGATIVE (NEGATIVE); URINE NITRITE NEGATIVE (NEGATIVE); URINE PROTEIN 2+ (NEGATIVE); URINE UROBILINOGEN NEGATIVE mg/dL (0.2-1.0)
[2018-06-17 23:49] LABS: EPI CELLS RARE /HPF (FEW); URINE BACTERIA RARE /hpf (NONE SEEN); URINE HYALINE CAST 8 /lpf; URINE MUCUS RARE
[2018-06-18] MEDS: MORPHINE SULFATE 2 MG/ML VIAL IV PRN ×2 (02:10→11:27)
[2018-06-18] MEDS: oxyCODONE HCL 5 MG TABLET PO PRN (04:11)
[2018-06-18] MEDS ORDERED: PT OWN MED DRAWER 7, Y5N ONE (09:16)
[2018-06-18] MEDS: CARVEDILOL 3.125 MG TABLET (FP) PO SCH ×2 (09:29→21:19)
[2018-06-18] MEDS: PANTOPRAZOLE 40 MG TABLET (FP) PO SCH (09:29)
[2018-06-18] MEDS: HEPARIN NA (PORCINE) 5,000 UNITS/ML 1ML VIAL SQ SCH ×2 (09:29→21:08)
[2018-06-18] MEDS: CITALOPRAM HYDROBROMIDE 10 MG TABLET (FP) PO SCH (09:29)
[2018-06-18] MEDS: HYDROCHLOROTHIAZIDE 25 MG TABLET (FP) PO SCH (09:29)
[2018-06-18] MEDS: LIDOCAINE 5% TOPICAL PATCH TP SCH (09:29)
[2018-06-18] MEDS: ASPIRIN 81 MG CHEWABLE TABLETS PO SCH (09:29)
[2018-06-18] MEDS: DEXTROSE 5%-0.45% SALINE 1,000 ML IV SCH (09:44)
[2018-06-18 09:45] LABS: ALBUMIN 3.2 g/dl (3.4-5.0); ALK PHOS 90 U/L (45-117); ANION GAP 16 MMOL/L (8-16); BILIRUBIN,TOTAL 0.6 mg/dL (0.2-1); CALCIUM 8.3 mg/dL (8.5-10.1); CHLORIDE 94 mmol/L (98-107); CO2 27 mmol/L (21-32); CREATININE 5.5 mg/dL (0.55-1.3); GLUCOSE,RANDOM 92 mg/dL (74-106); POTASSIUM 5.3 mmol/L (3.5-5.1); SGOT/AST 40 U/L (15-37); SGPT/ALT 36 U/L (13-61); SODIUM 136 mmol/L (136-145); TOT PROT 6.2 g/dl (6.4-8.2)
[2018-06-18] MEDS: DEXTROSE 5%-NORMAL SALINE 1,000 ML IV SCH (09:47)
[2018-06-18 09:54] LABS: BLOOD UREA NITROGEN 177 mg/dL (7-18)
--- NOTE | 2018-06-18 11:25 | PN ---
Progress Note (short form) - Note Progress Note: Lying in better looks better than yesterday still complains of pain alert/ awake. Vital Signs Temp 98.2 F 06/18/18 06:14 Pulse 79 06/18/18 06:14 Resp 18 06/18/18 06:14 BP 101/57 L 06/18/18 06:14 Pulse Ox 96 06/17/18 22:00 Intake & Output 06/17/18 06/17/18 06/18/18 11:59 23:59 11:59 Intake Total 1320 Output Total 1100 600 Balance 1320 -1100 -600 Weight 131 lb Intake: IV 1200 D5-1/2Ns - 1,000 ml @ 100 1200 mls/hr IV ASDIR [facility] Rx#: [id number] Oral 120 Output: Urine 1100 600 [place] 700 600 Void 400 Other: Voiding Method Bedside Commode Indwelling Catheter Bowel Movement No No Height 5 ft 11 in Body Mass Index (BMI) 18.2 Active Medications Acetaminophen (Tylenol -) 650 mg PO Q4H PRN PRN Reason: PAIN Last Admin: 06/14/18 20:05 Dose: 650 mg Aspirin (Asa -) 81 mg PO DAILY [facility] Last Admin: 06/18/18 09:29 Dose: 81 mg Atorvastatin Calcium (Lipitor -) 20 mg PO HS [facility] Last Admin: 06/17/18 21:42 Dose: 20 mg Bacitracin (Bacitracin -) 1 applic TP DAILY [facility] Last Admin: 06/17/18 09:15 Dose: 1 appful Carvedilol (Coreg -) 3.125 mg PO BID [facility] Last Admin: 06/18/18 09:29 Dose: 3.125 mg Citalopram Hydrobromide (Celexa -) 10 mg PO DAILY [facility] Last Admin: 06/18/18 09:29 Dose: 10 mg Docusate Sodium (Colace -) 100 mg PO BID PRN PRN Reason: CONSTIPATION Fentanyl (Duragesic 25mcg Patch -) 1 patch TD Q72H [facility] Stop: 06/22/18 12:16 Last Admin: 06/15/18 13:17 Dose: 1 patch Heparin Sodium (Porcine) (Heparin -) 5,000 unit SQ BID [facility] Last Admin: 06/18/18 09:29 Dose: 5,000 unit Hydrochlorothiazide (Hctz -) 25 mg PO DAILY [facility] Last Admin: 06/18/18 09:29 Dose: 25 mg Dextrose/Sodium Chloride (D5-Ns -) 1,000 mls @ 83 mls/hr IV ASDIR [facility] Last Admin: 06/18/18 09:47 Dose: Not Given Lidocaine (Lidoderm Patch -) 1 patch TP DAILY [facility] Last Admin: 06/18/18 09:29 Dose: 1 patch Miscellaneous (Lidoderm Patch Removal) 1 each MC DAILY@2200 [facility] Last Admin: 06/17/18 21:43 Dose: 1 each Miscellaneous (Duragesic Patch Waste) 1 each MC PRN PRN PRN Reason: PAIN Morphine Sulfate (Morphine Sulfate) 2 mg IV Q4H PRN PRN Reason: PAIN LEVEL 7 - 10 Last Admin: 06/18/18 02:10 Dose: 2 mg Pantoprazole Sodium (Protonix -) 40 mg PO DAILY [facility] Last Admin: 06/18/18 09:29 Dose: 40 mg Sodium Chloride (Normal Saline For Inhalation -) 3 ml IH Q6H PRN PRN Reason: COUGH CBC, BMP 06/17/18 14:30 06/18/18 07:00 u/s - pending reports Physical awake/ s1 S2 RRR Lungs- clear ABd- soft, slightly distended No edema weakness left arm neuro- aox 3 PLAN rapidly progressive disease per Neurology ARF Dehydration pt is DNR/DNI hospice being considered prognosis poor pain control - consult pain management labs noted -- improved continue present care will follow Problem List - Problems (1) ARF (acute renal failure) Code(s): N17.9 - ACUTE KIDNEY FAILURE, UNSPECIFIED (2) Dehydration Code(s): E86.0 - DEHYDRATION (3) 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
[2018-06-18] MEDS: BACITRACIN 15 GM TUBE TOPICAL OINTMENT TP SCH (11:27)
--- NOTE | 2018-06-18 13:02 | PN ---
Progress Note (short form) - Note Progress Note: PULMONARY Oob to chair Complains of diffuse body pain Gen: NAD, hypophonic/oral thrush noted Heart: RRR Lung: decreased breath sounds at the bases Abd: soft, nontender Ext: no edema ct brain/labs/meds/neuro eval noted A/P Progressive ALS HTN Hypercholesterolemia Fall w scalp laceration (with nl ct brain) Thrush - monitor vital capacity, NIF if patient is willing - O2 to keep SpO2 >90% - Arrangements are being arranged for a Triology device: patient requires ventilation via a Non-invasive ventilator as BiLevel is no longer effective in his treatment to effectively his work of breathing and to improve his pulmonary status and prevent interruption or failure of respiratory support due to worsening of his ALS. 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
[2018-06-18] MEDS: fentaNYL 25mcg/hr PATCH.TD72 TD SCH (13:40)
[2018-06-18] MEDS: NYSTATIN 500,000 UNITS/5 ML SUSPENSION PO SCH (17:07)
[2018-06-18] MEDS: MORPHINE SULFATE 2 MG/ML VIAL IVPUSH PRN ×2 (17:07→21:09)
[2018-06-18] MEDS: LIDOCAINE PATCH REMOVAL MC SCH (21:09)
[2018-06-18] MEDS: ATORVASTATIN CA 20 MG TABLET (FP) PO SCH (21:09)
--- NOTE | 2018-06-18 21:40 | PN ---
Progress Note (short form) - Note Progress Note: -dehydration -corie with hyperkalemia -severely depressed GFR -urinary retention -possible obstructive uropathy awaiting results of sono done earlier CBC, BMP 06/17/18 14:30 06/18/18 07:00 s/p with hyperkalemia corie obstructive renal function improving after ray catheterization Plan continue same ivf strict i and o f/u labs check FENa
[2018-06-19] MEDS: NYSTATIN 500,000 UNITS/5 ML SUSPENSION PO SCH ×5 (01:43→23:35)
[2018-06-19] MEDS: MORPHINE SULFATE 2 MG/ML VIAL IVPUSH PRN ×2 (06:00→16:00)
[2018-06-19] MEDS ORDERED: PT OWN MED DRAWER 7, Y5N ONE (09:59)
[2018-06-19] MEDS: ASPIRIN 81 MG CHEWABLE TABLETS PO SCH (10:06)
[2018-06-19] MEDS: CITALOPRAM HYDROBROMIDE 10 MG TABLET (FP) PO SCH (10:06)
[2018-06-19] MEDS: HYDROCHLOROTHIAZIDE 25 MG TABLET (FP) PO SCH (10:07)
[2018-06-19] MEDS: CARVEDILOL 3.125 MG TABLET (FP) PO SCH ×2 (10:07→22:27)
[2018-06-19] MEDS: PANTOPRAZOLE 40 MG TABLET (FP) PO SCH (10:08)
[2018-06-19] MEDS: HEPARIN NA (PORCINE) 5,000 UNITS/ML 1ML VIAL SQ SCH ×2 (10:08→22:28)
[2018-06-19] MEDS: BACITRACIN 15 GM TUBE TOPICAL OINTMENT TP SCH (10:09)
[2018-06-19] MEDS: LIDOCAINE 5% TOPICAL PATCH TP SCH (10:09)
--- NOTE | 2018-06-19 10:32 | PN ---
Progress Note (short form) - Note Progress Note: PULMONARY Still with dyspnea on exertion. +nonproductive cough. No fevers. Vital Signs Period Temp Pulse Resp BP Sys/Coker Pulse Ox Last 24 Hr 97.3 F-97.8 F 80-104 18-20 92-133/49-67 100 Gen: mildly tachypneic with speaking Heart: RRR Lung: decreased breath sounds at the bases Abd: soft, nontender Ext: no edema CBC, BMP 06/17/18 14:30 06/18/18 07:00 Active Medications Acetaminophen (Tylenol -) 650 mg PO Q4H PRN PRN Reason: PAIN Last Admin: 06/14/18 20:05 Dose: 650 mg Aspirin (Asa -) 81 mg PO DAILY [facility] Last Admin: 06/19/18 10:06 Dose: 81 mg Atorvastatin Calcium (Lipitor -) 20 mg PO HS [facility] Last Admin: 06/18/18 21:09 Dose: 20 mg Bacitracin (Bacitracin -) 1 applic TP DAILY [facility] Last Admin: 06/19/18 10:09 Dose: 1 appful Carvedilol (Coreg -) 3.125 mg PO BID [facility] Last Admin: 06/19/18 10:07 Dose: 3.125 mg Citalopram Hydrobromide (Celexa -) 10 mg PO DAILY [facility] Last Admin: 06/19/18 10:06 Dose: 10 mg Docusate Sodium (Colace -) 100 mg PO BID PRN PRN Reason: CONSTIPATION Fentanyl (Duragesic 25mcg Patch -) 1 patch TD Q72H [facility] Stop: 06/22/18 12:16 Last Admin: 06/18/18 13:40 Dose: 1 patch Heparin Sodium (Porcine) (Heparin -) 5,000 unit SQ BID [facility] Last Admin: 06/19/18 10:08 Dose: 5,000 unit Hydrochlorothiazide (Hctz -) 25 mg PO DAILY [facility] Last Admin: 06/19/18 10:07 Dose: 25 mg Dextrose/Sodium Chloride (D5-Ns -) 1,000 mls @ 83 mls/hr IV ASDIR [facility] Last Admin: 06/18/18 09:47 Dose: Not Given Lidocaine (Lidoderm Patch -) 1 patch TP DAILY [facility] Last Admin: 06/19/18 10:09 Dose: 1 patch Miscellaneous (Lidoderm Patch Removal) 1 each MC DAILY@2200 [facility] Last Admin: 06/18/18 21:09 Dose: 1 each Miscellaneous (Duragesic Patch Waste) 1 each MC PRN PRN PRN Reason: PAIN Morphine Sulfate (Morphine Sulfate) 2 mg IVPUSH Q4H PRN PRN Reason: PAIN LEVEL 7 - 10 Last Admin: 06/19/18 06:00 Dose: 2 mg Nystatin (Nystatin Oral Suspension -) 500,000 units PO Q6HPO [facility] Last Admin: 06/19/18 06:00 Dose: 500,000 units Pantoprazole Sodium (Protonix -) 40 mg PO DAILY [facility] Last Admin: 06/19/18 10:08 Dose: 40 mg Sodium Chloride (Normal Saline For Inhalation -) 3 ml IH Q6H PRN PRN Reason: COUGH A/P Progressive ALS Acute Kidney Injury HTN Hypercholesterolemia - monitor vital capacity, NIF - O2 to keep SpO2 >90% - NIPPV at night and PRN during day - IVF - monitor urine output, creatinine - DVT prophylaxis - patient requires ventilation via a Non-invasive ventilator as BiLevel is no longer effective in his treatment to effectively his work of breathing and to improve his pulmonary status and prevent interruption or failure of respiratory support due to worsening of his ALS
[2018-06-19 11:13] LABS: BASO % 0.1 % (0-2.0); EOS % 0.2 % (0-4.5); HEMATOCRIT 35.1 % (35.4-49); HEMOGLOBIN 12.1 GM/dL (11.7-16.9); LYMPH % 3.4 % (8-40); MCH 30.9 pg (25.7-33.7); MCHC 34.5 g/dl (32.0-35.9); MEAN CELL VOLUME 89.8 fl (80-96); MEAN PLT VOLUME 10.7 fl (7.5-11.1); MONO % 5.3 % (3.8-10.2); PLATELET COUNT 151 K/MM3 (134-434); RDW 14.8 % (11.9-15.9); WHITE BLOOD COUNT 11.2 K/mm3 (4.0-10.0)
[2018-06-19 11:24] LABS: ALBUMIN 2.8 g/dl (3.4-5.0); ALK PHOS 85 U/L (45-117); ANION GAP 9 MMOL/L (8-16); BILIRUBIN,TOTAL 0.6 mg/dL (0.2-1); CALCIUM 8.3 mg/dL (8.5-10.1); CHLORIDE 100 mmol/L (98-107); CO2 31 mmol/L (21-32); CREATININE 2.6 mg/dL (0.55-1.3); GLUCOSE,RANDOM 167 mg/dL (74-106); POTASSIUM 4.6 mmol/L (3.5-5.1); SGOT/AST 67 U/L (15-37); SGPT/ALT 40 U/L (13-61); SODIUM 139 mmol/L (136-145); TOT PROT 5.9 g/dl (6.4-8.2)
--- NOTE | 2018-06-19 11:30 | PN ---
Progress Note (short form) - Note Progress Note: Renal follow up for KADEN Pt seen and examined at the bedside awake and alert has no acute complaints making urine via ray Vital Signs Temperature 97.7 F 06/19/18 07:00 Pulse Rate 104 H 06/19/18 07:00 Respiratory Rate 18 06/19/18 07:00 Blood Pressure 92/55 L 06/19/18 07:00 O2 Sat by Pulse Oximetry (%) 100 06/18/18 21:00 Intake & Output 06/16/18 06/17/18 06/18/18 06/19/18 23:59 23:59 23:59 23:59 Intake Total 400 1320 1140 996 Output Total 1100 2280 500 Balance 400 220 -1140 496 Weight 59.421 kg NAD no Le edema ray in place CBC, BMP 06/19/18 10:25 06/19/18 10:25 Current Medications Acetaminophen (Tylenol -) 650 mg PO Q4H PRN PRN Reason: PAIN Last Admin: 06/14/18 20:05 Dose: 650 mg Aspirin (Asa -) 81 mg PO DAILY [facility] Last Admin: 06/19/18 10:06 Dose: 81 mg Atorvastatin Calcium (Lipitor -) 20 mg PO HS [facility] Last Admin: 06/18/18 21:09 Dose: 20 mg Bacitracin (Bacitracin -) 1 applic TP DAILY [facility] Last Admin: 06/19/18 10:09 Dose: 1 appful Carvedilol (Coreg -) 3.125 mg PO BID [facility] Last Admin: 06/19/18 10:07 Dose: 3.125 mg Citalopram Hydrobromide (Celexa -) 10 mg PO DAILY [facility] Last Admin: 06/19/18 10:06 Dose: 10 mg Docusate Sodium (Colace -) 100 mg PO BID PRN PRN Reason: CONSTIPATION Fentanyl (Duragesic 25mcg Patch -) 1 patch TD Q72H [facility] Stop: 06/22/18 12:16 Last Admin: 06/18/18 13:40 Dose: 1 patch Heparin Sodium (Porcine) (Heparin -) 5,000 unit SQ BID [facility] Last Admin: 06/19/18 10:08 Dose: 5,000 unit Hydrochlorothiazide (Hctz -) 25 mg PO DAILY [facility] Last Admin: 06/19/18 10:07 Dose: 25 mg Dextrose/Sodium Chloride (D5-Ns -) 1,000 mls @ 83 mls/hr IV [facility] Last Admin: 06/18/18 09:47 Dose: Not Given Lidocaine (Lidoderm Patch -) 1 patch TP DAILY [facility] Last Admin: 06/19/18 10:09 Dose: 1 patch Miscellaneous (Lidoderm Patch Removal) 1 each MC DAILY@2200 [facility] Last Admin: 06/18/18 21:09 Dose: 1 each Miscellaneous (Duragesic Patch Waste) 1 each [facility] PRN PRN PRN Reason: PAIN Morphine Sulfate (Morphine Sulfate) 2 mg IVPUSH Q4H PRN PRN Reason: PAIN LEVEL 7 - 10 Last Admin: 06/19/18 06:00 Dose: 2 mg Nystatin (Nystatin Oral Suspension -) 500,000 units PO Q6HPO [facility] Last Admin: 06/19/18 06:00 Dose: 500,000 units Pantoprazole Sodium (Protonix -) 40 mg PO DAILY [facility] Last Admin: 06/19/18 10:08 Dose: 40 mg Sodium Chloride (Normal Saline For Inhalation -) 3 ml IH Q6H PRN PRN Reason: COUGH 68 year old gentleman with history of ALS, hypertension presented with falls and found to develop KADEN during hospital admission #KADEN secondary to bladder outlet obstruction Renal function improving with Ray placement start Flomax for BPH urology consult for approximate duration of Ray placement continue IVF for now no indication for BEAN VINER Salas Arevalo DO
[2018-06-19 11:32] LABS: BLOOD UREA NITROGEN 136 mg/dL (7-18)
--- NOTE | 2018-06-19 11:35 | PN ---
Progress Note (short form) - Note Progress Note: awake. complains of pain - generalized-- Vital Signs Temp 97.7 F 06/19/18 07:00 Pulse 104 H 06/19/18 07:00 Resp 18 06/19/18 07:00 BP 92/55 L 06/19/18 07:00 Pulse Ox 100 06/18/18 21:00 Intake & Output 06/18/18 06/18/18 06/19/18 11:59 23:59 11:59 Intake Total 170 970 996 Output Total 600 1680 500 Balance -430 -710 496 Intake: IV 800 996 D5-1/2Ns - 1,000 ml @ 100 800 mls/hr IV ASDIR [facility] Rx#: [id number] D5-Ns - 1,000 ml @ 83 mls 996 /hr IV ASDIR [facility] Rx#: [id number] Oral 170 170 Output: Urine 600 1680 500 [place] 600 1680 500 Other: Voiding Method Bedside Commode Indwelling Catheter # Unmeasured Voids [place] 1 1 Bowel Movement No No Active Medications Acetaminophen (Tylenol -) 650 mg PO Q4H PRN PRN Reason: PAIN Last Admin: 06/14/18 20:05 Dose: 650 mg Aspirin (Asa -) 81 mg PO DAILY [facility] Last Admin: 06/19/18 10:06 Dose: 81 mg Atorvastatin Calcium (Lipitor -) 20 mg PO HS [facility] Last Admin: 06/18/18 21:09 Dose: 20 mg Bacitracin (Bacitracin -) 1 applic TP DAILY [facility] Last Admin: 06/19/18 10:09 Dose: 1 appful Carvedilol (Coreg -) 3.125 mg PO BID [facility] Last Admin: 06/19/18 10:07 Dose: 3.125 mg Citalopram Hydrobromide (Celexa -) 10 mg PO DAILY [facility] Last Admin: 06/19/18 10:06 Dose: 10 mg Docusate Sodium (Colace -) 100 mg PO BID PRN PRN Reason: CONSTIPATION Fentanyl (Duragesic 25mcg Patch -) 1 patch TD Q72H [facility] Stop: 06/22/18 12:16 Last Admin: 06/18/18 13:40 Dose: 1 patch Heparin Sodium (Porcine) (Heparin -) 5,000 unit SQ BID [facility] Last Admin: 06/19/18 10:08 Dose: 5,000 unit Hydrochlorothiazide (Hctz -) 25 mg PO DAILY [facility] Last Admin: 06/19/18 10:07 Dose: 25 mg Dextrose/Sodium Chloride (D5-Ns -) 1,000 mls @ 83 mls/hr IV ASDIR [facility] Last Admin: 06/18/18 09:47 Dose: Not Given Lidocaine (Lidoderm Patch -) 1 patch TP DAILY [facility] Last Admin: 06/19/18 10:09 Dose: 1 patch Miscellaneous (Lidoderm Patch Removal) 1 each MC DAILY@2200 [facility] Last Admin: 06/18/18 21:09 Dose: 1 each Miscellaneous (Duragesic Patch Waste) 1 each MC PRN PRN PRN Reason: PAIN Morphine Sulfate (Morphine Sulfate) 2 mg IVPUSH Q4H PRN PRN Reason: PAIN LEVEL 7 - 10 Last Admin: 06/19/18 06:00 Dose: 2 mg Nystatin (Nystatin Oral Suspension -) 500,000 units PO Q6HPO [facility] Last Admin: 06/19/18 06:00 Dose: 500,000 units Pantoprazole Sodium (Protonix -) 40 mg PO DAILY [facility] Last Admin: 06/19/18 10:08 Dose: 40 mg Sodium Chloride (Normal Saline For Inhalation -) 3 ml IH Q6H PRN PRN Reason: COUGH CBC, BMP 06/19/18 10:25 06/19/18 10:25 Physical awake/ s1 S2 RRR Lungs- clear ABd- soft, decreased distention No edema weakness left arm neuro- aox 3 PLAN rapidly progressive disease per Neurology ARF-- better Dehydration pt is DNR/DNI hospice being considered prognosis poor pain control - consult pain management pending labs noted -- improved continue present care will follow will also Increase Duragesic patch dose. 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
[2018-06-19] MEDS ORDERED: FENTANYL PATCH WASTE TD PRN (11:37)
[2018-06-19] MEDS ORDERED: fentaNYL 50mcg/hr PATCH.TD72 TD SCH (11:45)
[2018-06-19 12:22] LABS: ACANTHOCYTES 1+; ANISOCYTOSIS 2+; MACROCYTOSIS 0; PLATELET ESTIMATE DECREASED; TEAR DROP CELLS 1+
--- NOTE | 2018-06-19 12:46 | PN ---
Progress Note, DRESSAGE JUDGE - Note Progress Note: Selected Entries 06/19/18 06/19/18 07:00 11:59 Breakfast 25% Temperature 97.7 F Laboratory Tests 06/17/18 06/17/18 06/18/18 14:30 14:30 07:00 WBC 14.9 H BUN 183 H* 177 H* Creatinine 6.8 H 5.5 H 06/19/18 06/19/18 10:25 10:25 WBC 11.2 H BUN 136 H* Creatinine 2.6 H Weak speech production. Limited PO intake with dysphagia.
[2018-06-19] MEDS: DEXTROSE 5%-NORMAL SALINE 1,000 ML IV SCH ×2 (16:11→22:27)
[2018-06-19] MEDS: ATORVASTATIN CA 20 MG TABLET (FP) PO SCH (22:27)
[2018-06-19] MEDS: LIDOCAINE PATCH REMOVAL MC SCH (22:28)
[2018-06-20] MEDS: DEXTROSE 5%-NORMAL SALINE 1,000 ML IV SCH (04:18)
[2018-06-20] MEDS: MORPHINE SULFATE 2 MG/ML VIAL IVPUSH PRN (06:01)
[2018-06-20] MEDS: NYSTATIN 500,000 UNITS/5 ML SUSPENSION PO SCH ×3 (06:01→17:28)
[2018-06-20 07:51] LABS: ANION GAP 9 MMOL/L (8-16); BLOOD UREA NITROGEN 104 mg/dL (7-18); CALCIUM 8.4 mg/dL (8.5-10.1); CHLORIDE 107 mmol/L (98-107); CO2 31 mmol/L (21-32); CREATININE 1.5 mg/dL (0.55-1.3); GLUCOSE,RANDOM 117 mg/dL (74-106); MAGNESIUM 2.2 mg/dL (1.8-2.4); PHOSPHOROUS 4.1 mg/dL (2.5-4.9); POTASSIUM 4.1 mmol/L (3.5-5.1); SODIUM 147 mmol/L (136-145)
--- NOTE | 2018-06-20 10:12 | PN ---
Progress Note (short form) - Note Progress Note: PULMONARY Still with dyspnea on exertion. Did not use BiPAP last night. +nonproductive cough. No fevers. Gen: mildly tachypneic with speaking Heart: RRR Lung: decreased breath sounds at the bases Abd: soft, nontender Ext: no edema CBC, BMP 06/19/18 10:25 06/20/18 06:15 Active Medications Acetaminophen (Tylenol -) 650 mg PO Q4H PRN PRN Reason: PAIN Last Admin: 06/14/18 20:05 Dose: 650 mg Aspirin (Asa -) 81 mg PO DAILY [facility] Last Admin: 06/19/18 10:06 Dose: 81 mg Atorvastatin Calcium (Lipitor -) 20 mg PO HS [facility] Last Admin: 06/19/18 22:27 Dose: 20 mg Bacitracin (Bacitracin -) 1 applic TP DAILY [facility] Last Admin: 06/19/18 10:09 Dose: 1 appful Carvedilol (Coreg -) 3.125 mg PO BID [facility] Last Admin: 06/19/18 22:27 Dose: 3.125 mg Citalopram Hydrobromide (Celexa -) 10 mg PO DAILY [facility] Last Admin: 06/19/18 10:06 Dose: 10 mg Docusate Sodium (Colace -) 100 mg PO BID PRN PRN Reason: CONSTIPATION Fentanyl (Duragesic 50mcg Patch -) 1 patch TD Q72H [facility] Stop: 06/26/18 11:37 Last Admin: 06/19/18 12:22 Dose: 1 patch Heparin Sodium (Porcine) (Heparin -) 5,000 unit SQ BID [facility] Last Admin: 06/19/18 22:28 Dose: 5,000 unit Hydrochlorothiazide (Hctz -) 25 mg PO DAILY [facility] Last Admin: 06/19/18 10:07 Dose: 25 mg Dextrose/Sodium Chloride (D5-Ns -) 1,000 mls @ 83 mls/hr IV ASDIR [facility] Last Admin: 06/20/18 04:18 Dose: 83 mls/hr Lidocaine (Lidoderm Patch -) 1 patch TP DAILY [facility] Last Admin: 06/19/18 10:09 Dose: 1 patch Miscellaneous (Lidoderm Patch Removal) 1 each MC DAILY@2200 [facility] Last Admin: 06/19/18 22:28 Dose: 1 each Miscellaneous (Duragesic Patch Waste) 1 each TD PRN PRN PRN Reason: PAIN Morphine Sulfate (Morphine Sulfate) 2 mg IVPUSH Q4H PRN PRN Reason: PAIN LEVEL 7 - 10 Last Admin: 06/20/18 06:01 Dose: 2 mg Nystatin (Nystatin Oral Suspension -) 500,000 units PO Q6HPO [facility] Last Admin: 06/20/18 06:01 Dose: Not Given Pantoprazole Sodium (Protonix -) 40 mg PO DAILY [facility] Last Admin: 06/19/18 10:08 Dose: 40 mg Sodium Chloride (Normal Saline For Inhalation -) 3 ml IH Q6H PRN PRN Reason: COUGH Last Admin: 06/20/18 07:06 Dose: 3 ml A/P Progressive ALS Acute Kidney Injury HTN Hypercholesterolemia - monitor vital capacity, NIF - O2 to keep SpO2 >90% - NIPPV at night and PRN during day - IVF - monitor urine output, creatinine - DVT prophylaxis - patient requires ventilation via a Non-invasive ventilator as BiLevel is no longer effective in his treatment to effectively his work of breathing and to improve his pulmonary status and prevent interruption or failure of respiratory support due to worsening of his ALS
[2018-06-20] MEDS ORDERED: PT OWN MED DRAWER 7, Y5N ONE (10:49)
[2018-06-20] MEDS: ASPIRIN 81 MG CHEWABLE TABLETS PO SCH (10:56)
[2018-06-20] MEDS: HEPARIN NA (PORCINE) 5,000 UNITS/ML 1ML VIAL SQ SCH (10:57)
[2018-06-20] MEDS: CARVEDILOL 3.125 MG TABLET (FP) PO SCH (10:57)
[2018-06-20] MEDS: BACITRACIN 15 GM TUBE TOPICAL OINTMENT TP SCH (10:57)
[2018-06-20] MEDS: PANTOPRAZOLE 40 MG TABLET (FP) PO SCH (10:57)
[2018-06-20] MEDS: HYDROCHLOROTHIAZIDE 25 MG TABLET (FP) PO SCH (10:57)
[2018-06-20] MEDS: CITALOPRAM HYDROBROMIDE 10 MG TABLET (FP) PO SCH (10:57)
[2018-06-20] MEDS: LIDOCAINE 5% TOPICAL PATCH TP SCH (10:58)
--- NOTE | 2018-06-20 12:18 | PN ---
Progress Note (short form) - Note Progress Note: Renal follow up for KADEN Pt seen and examined at the bedside sleeping no overnight events ray draining yellow urine on IVF Vital Signs Temperature 98.3 F 06/20/18 06:32 Pulse Rate 121 H 06/20/18 06:32 Respiratory Rate 20 06/20/18 06:32 Blood Pressure 117/70 06/20/18 06:32 O2 Sat by Pulse Oximetry (%) 97 06/19/18 21:00 Intake & Output 06/17/18 06/18/18 06/19/18 06/20/18 23:59 23:59 23:59 23:59 Intake Total 1320 1140 1944 900 Output Total 1100 2280 1100 Balance 220 -1140 844 900 Weight 59.421 kg NAD No LE edema ray in place CBC, BMP 06/19/18 10:25 06/20/18 06:15 Laboratory Tests 06/19/18 06/20/18 10:25 06:15 Calcium 8.4 L Phosphorus 4.1 Magnesium 2.2 Albumin 2.8 L Current Medications Acetaminophen (Tylenol -) 650 mg PO Q4H PRN PRN Reason: PAIN Last Admin: 06/14/18 20:05 Dose: 650 mg Aspirin (Asa -) 81 mg PO DAILY [facility] Last Admin: 06/20/18 10:56 Dose: 81 mg Atorvastatin Calcium (Lipitor -) 20 mg PO HS [facility] Last Admin: 06/19/18 22:27 Dose: 20 mg Bacitracin (Bacitracin -) 1 applic TP DAILY [facility] Last Admin: 06/20/18 10:57 Dose: 1 appful Carvedilol (Coreg -) 3.125 mg PO BID [facility] Last Admin: 06/20/18 10:57 Dose: 3.125 mg Citalopram Hydrobromide (Celexa -) 10 mg PO DAILY [facility] Last Admin: 06/20/18 10:57 Dose: 10 mg Docusate Sodium (Colace -) 100 mg PO BID PRN PRN Reason: CONSTIPATION Fentanyl (Duragesic 50mcg Patch -) 1 patch TD Q72H [facility] Stop: 06/26/18 11:37 Last Admin: 06/19/18 12:22 Dose: 1 patch Heparin Sodium (Porcine) (Heparin -) 5,000 unit SQ BID [facility] Last Admin: 06/20/18 10:57 Dose: 5,000 unit Hydrochlorothiazide (Hctz -) 25 mg PO DAILY [facility] Last Admin: 06/20/18 10:57 Dose: 25 mg Dextrose/Sodium Chloride (D5-Ns -) 1,000 mls @ 83 mls/hr IV ASDIR [facility] Last Admin: 06/20/18 04:18 Dose: 83 mls/hr Lidocaine (Lidoderm Patch -) 1 patch TP DAILY [facility] Last Admin: 06/20/18 10:58 Dose: 1 patch Miscellaneous (Lidoderm Patch Removal) 1 each MC DAILY@2200 [facility] Last Admin: 06/19/18 22:28 Dose: 1 each Miscellaneous (Duragesic Patch Waste) 1 each TD PRN PRN PRN Reason: PAIN Morphine Sulfate (Morphine Sulfate) 2 mg IVPUSH Q4H PRN PRN Reason: PAIN LEVEL 7 - 10 Last Admin: 06/20/18 06:01 Dose: 2 mg Nystatin (Nystatin Oral Suspension -) 500,000 units PO Q6HPO [facility] Last Admin: 06/20/18 06:01 Dose: Not Given Pantoprazole Sodium (Protonix -) 40 mg PO DAILY [facility] Last Admin: 06/20/18 10:57 Dose: 40 mg Sodium Chloride (Normal Saline For Inhalation -) 3 ml IH Q6H PRN PRN Reason: COUGH Last Admin: 06/20/18 07:06 Dose: 3 ml 68 year old gentleman with history of ALS, hypertension presented with falls and found to develop KADEN during hospital admission #KADEN secondary to bladder outlet obstruction Renal function improving with ray placement Start Flomax daily maintain Ray for now, can attempt trial of void after being on flomax for5-7 days if pt has 2 unsuccessful trial of voids may need urologic intervention Salas Arevalo DO
--- NOTE | 2018-06-20 14:20 | PN ---
Progress Note (short form) - Note Progress Note: weakness decreased appetite decreased pain Vital Signs - 24 hr 06/19/18 06/19/18 06/19/18 17:52 21:00 22:00 Temperature 98.5 F 97.4 F L Pulse Rate 97 H 91 H Respiratory 20 20 Rate Blood Pressure 120/68 111/66 O2 Sat by Pulse 97 Oximetry (%) 06/20/18 06:32 Temperature 98.3 F Pulse Rate 121 H Respiratory 20 Rate Blood Pressure 117/70 O2 Sat by Pulse Oximetry (%) Current Medications Generic Name Dose Route Start Last Admin Trade Name Freq PRN Reason Stop Dose Admin Acetaminophen 650 mg 06/10/18 13:37 06/14/18 20:05 Tylenol - PO 650 mg Q4H PRN Administration PAIN Aspirin 81 mg 06/08/18 10:00 06/20/18 10:56 Asa - PO 81 mg DAILY [facility] Administration Atorvastatin Calcium 20 mg 06/07/18 22:00 06/19/18 22:27 Lipitor - PO 20 mg HS [facility] Administration Bacitracin 1 applic 06/17/18 10:00 06/20/18 10:57 Bacitracin - TP 1 appful DAILY [facility] Administration Carvedilol 3.125 mg 06/07/18 22:00 06/20/18 10:57 Coreg - PO 3.125 mg BID [facility] Administration Citalopram Hydrobromide 10 mg 06/17/18 10:00 06/20/18 10:57 Celexa - PO 10 mg DAILY [facility] Administration Docusate Sodium 100 mg 06/12/18 10:51 Colace - PO BID PRN CONSTIPATION Fentanyl 1 patch 06/19/18 11:45 06/19/18 12:22 Duragesic 50mcg Patch - TD 06/26/18 11:37 1 patch Q72H [facility] Administration Heparin Sodium (Porcine) 5,000 unit 06/07/18 22:00 06/20/18 10:57 Heparin - SQ 5,000 unit BID [facility] Administration Hydrochlorothiazide 25 mg 06/08/18 10:00 06/20/18 10:57 Hctz - PO 25 mg DAILY [facility] Administration Dextrose/Sodium Chloride 1,000 mls @ 83 mls/hr 06/17/18 22:15 06/20/18 04:18 D5-Ns - IV 83 mls/hr ASDIR [facility] Administration Lidocaine 1 patch 06/10/18 13:45 06/20/18 10:58 Lidoderm Patch - TP 1 patch DAILY [facility] Administration Miscellaneous 1 each 06/10/18 22:00 06/19/18 22:28 Lidoderm Patch Removal MC 1 each DAILY@2200 [facility] Administration Miscellaneous 1 each 06/19/18 11:37 Duragesic Patch Waste TD PRN PRN PAIN Morphine Sulfate 2 mg 06/18/18 16:59 06/20/18 06:01 Morphine Sulfate IVPUSH 2 mg Q4H PRN Administration PAIN LEVEL 7 - 10 Nystatin 500,000 units 06/18/18 18:00 06/20/18 12:37 Nystatin Oral Suspension - PO 500,000 units Q6HPO [facility] Administration Pantoprazole Sodium 40 mg 06/08/18 10:00 06/20/18 10:57 Protonix - PO 40 mg DAILY [facility] Administration Sodium Chloride 3 ml 06/07/18 11:45 06/20/18 07:06 Normal Saline For Inhalation - IH 3 ml Q6H PRN Administration COUGH Laboratory Results - last 24 hr 06/19/18 06/19/18 06/20/18 20:30 20:30 06:15 Sodium 147 H Potassium 4.1 Chloride 107 Carbon Dioxide 31 Anion Gap 9 BUN 104 H Creatinine 1.5 H Creat Clearance w eGFR 46.54 Random Glucose 117 H Calcium 8.4 L Phosphorus 4.1 Magnesium 2.2 Ur Random Sodium Cancelled 24 L Urine Creatinine 77.0 H s1 S2 RRR Lungs decreased ABd- soft, NT No edema weakness left arm PLAN rapidly progressive disease per Neurology voice is hoarse-tongue numb- diet according to swallow therapist pt is DNR/DNI avoid aspiration dc prednisone nay need to be transferred to SNF prognosis poor pain control renal function better - ray should be maintained as he has retention Problem List - Problems (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
[2018-06-20] MEDS ORDERED: DEXTROSE 5%-0.45% SALINE 1,000 ML IV SCH (15:00)
[2018-06-20] MEDS ORDERED: TAMSULOSIN HCL 0.4 MG CAP PO SCH (15:06)
[2018-06-20 17:30] VITALS: BP 128/62; PULSE 61; TEMP 97.2
== END 2018-06-20 19:10 | DRG 56 ==
LOC: JER 12:47 → JERBED 15:50 → J8W 18:47
PROVIDERS: ADMIT Internal Medicine; ATTEND Internal Medicine
DX: G12.21 Amyotrophic lateral sclerosis (principal); E43 Unspecified severe protein-calorie malnutrition; Z68.1 Body mass index [BMI] 19.9 or less, adult; N17.9 Acute kidney failure, unspecified; I10 Essential (primary) hypertension; W19.XXXA Unspecified fall, initial encounter; J44.9 Chronic obstructive pulmonary disease, unspecified; F17.210 Nicotine dependence, cigarettes, uncomplicated; R10.9 Unspecified abdominal pain; R53.1 Weakness; E78.00 Pure hypercholesterolemia, unspecified; R13.10 Dysphagia, unspecified; F41.8 Other specified anxiety disorders; S41.012A Laceration without foreign body of left shoulder, initial encounter; S01.01XA Laceration without foreign body of scalp, initial encounter; S81.012A Laceration without foreign body, left knee, initial encounter; E86.0 Dehydration; B37.9 Candidiasis, unspecified; E87.6 Hypokalemia; S09.90XA Unspecified injury of head, initial encounter; E87.5 Hyperkalemia; R33.9 Retention of urine, unspecified; Z66 Do not resuscitate; N13.9 Obstructive and reflux uropathy, unspecified; W18.30XA Fall on same level, unspecified, initial encounter; Y92.230 Patient room in hospital as the place of occurrence of the external cause
CPT/HCPCS: 36415; 36600; 70450-TC; 71045-TC-FY; 71101-TC-FY; 76775-TC; 76856-TC; 80048; 80053; 81003; 81015; 82550; 82553; 82570; 82607; 82803; 83735; 84100; 84300; 84443; 84484; 85025; 85610; 85651; 86618; 90715; 93005; 93010; 94660; 97116-GP; 97162-GP; 99285-25; J1644; J7030

== ENCOUNTER 2018-06-21 02:54 | Inpatient (IN) | payer OTHER ==
[2018-06-21 03:21] LABS: HEMATOCRIT 34.7 % (35.4-49); HEMOGLOBIN 12.1 GM/dL (11.7-16.9); LYMPH % 3.2 % (8-40); MCH 31.6 pg (25.7-33.7); MCHC 34.7 g/dl (32.0-35.9); MEAN PLT VOLUME 9.9 fl (7.5-11.1); MONO % 6.6 % (3.8-10.2); NEUT % 90.2 % (42.8-82.8); PLATELET COUNT 138 K/MM3 (134-434); RBC 3.81 M/mm3 (4.00-5.60); RDW 14.5 % (11.9-15.9); WHITE BLOOD COUNT 9.7 K/mm3 (4.0-10.0)
[2018-06-21 03:34] LABS: INR 1.12 (0.83-1.09); PROTHROMBIN TIME (PATIENT) 13.2 SEC (9.7-13.0)
[2018-06-21 03:44] VITALS: BMI 20.3
[2018-06-21] MEDS ORDERED: dilTIAZem HCL 50 MG/10 ML - 10 ML VIAL IVPUSH ONE (03:44)
[2018-06-21] MEDS ORDERED: SODIUM CHLORIDE 1,000 ML IV SCH (03:45)
[2018-06-21] MEDS ORDERED: dilTIAZem HCL 125 MG/25 ML - 25 ML VIAL ONE (03:52)
[2018-06-21 03:57] LABS: ALBUMIN 2.8 g/dl (3.4-5.0); ALK PHOS 91 U/L (45-117); ANION GAP 10 MMOL/L (8-16); BILIRUBIN,TOTAL 0.7 mg/dL (0.2-1); BLOOD UREA NITROGEN 81 mg/dL (7-18); CALCIUM 8.5 mg/dL (8.5-10.1); CHLORIDE 110 mmol/L (98-107); CO2 30 mmol/L (21-32); CREATININE 1.4 mg/dL (0.55-1.3); GLUCOSE,RANDOM 122 mg/dL (74-106); MAGNESIUM 1.8 mg/dL (1.8-2.4); N-TERMINAL BNP 5638.2 pg/ml (5-125); POTASSIUM 4.3 mmol/L (3.5-5.1); SGOT/AST 55 U/L (15-37); SGPT/ALT 41 U/L (13-61); SODIUM 150 mmol/L (136-145); TOT PROT 6.1 g/dl (6.4-8.2)
--- NOTE | 2018-06-21 04:38 | PDOC ---
*Physical Exam - Vital Signs Last Vital Signs Temp Pulse Resp BP Pulse Ox 98.1 F 135 H 24 H 126/99 100 06/21/18 03:27 06/21/18 04:03 06/21/18 04:03 06/21/18 03:16 06/21/18 04:03 ED Treatment Course - LABORATORY CBC & Chemistry Diagram: 06/21/18 00:05 06/21/18 00:05 - ADDITIONAL ORDERS Additional order review: Laboratory Results 06/21/18 06/21/18 00:05 00:05 PT with INR 13.20 H INR 1.12 H Sodium 150 H Potassium 4.3 Chloride 110 H Carbon Dioxide 30 Anion Gap 10 BUN 81 H Creatinine 1.4 H Creat Clearance w eGFR 50.40 Random Glucose 122 H Calcium 8.5 Magnesium 1.8 Total Bilirubin 0.7 AST 55 H ALT 41 Alkaline Phosphatase 91 Creatine Kinase 609 H Troponin I 0.34 H B-Natriuretic Peptide 5638.2 H Total Protein 6.1 L Albumin 2.8 L 06/21/18 00:05 RBC 3.81 L MCV 91.0 MCHC 34.7 RDW 14.5 MPV 9.9 Neutrophils % 90.2 H Lymphocytes % 3.2 L Monocytes % 6.6 Eosinophils % 0.0 D Basophils % 0.0 - RADIOLOGY Radiology Studies Ordered: Category Date Time Status CHEST X-RAY PORTABLE* [RAD] Stat Radiology 06/21/18 03:10 Taken Medical Decision Making - Critical Care Time Total Critical Care Time (minutes): 90 Critical Care Statement: The care of this patient involved high complexity decision making to prevent further life threatening deterioration of the patient 's condition and/or to evaluate & treat vital organ system(s) failure or risk of failure. - Medical Decision Making 06/21/18 04:34 Mr Erazo is a 68 yo M h/o ALS, h/o recent KADEN 2/2 post obstructive uropathy Now s/p ray cathether (which remains indwelling) Pt was discharged to the SNF today today Per nursing notes, the patient was noted to be hypoxic Vital signs reveal tachycardia Pt denies chest pain He notes a cough No vomiting or diarrhea On examination: Cachectic Awake and alert, answering all questions Tachycardiac Diminished breath sounds, poor resp effort No abd tenderness No rash noted Laboratory Tests 06/19/18 06/21/18 06/21/18 10:25 00:05 00:05 WBC 11.2 H 9.7 Hgb 12.1 12.1 Hct 35.1 L 34.7 L Plt Count 151 138 Sodium 150 H Potassium 4.3 Chloride 110 H Carbon Dioxide 30 BUN 81 H Creatinine 1.4 H Random Glucose 122 H Creatine Kinase 609 H Troponin I 0.34 H B-Natriuretic Peptide 5638.2 H 06/21/18 04:41 EKG -Rhythm undetermined, rate 153, Left axis deviation, RBBB Pt was given gentle hydration Minimal improvement in his symptoms Call placed to Cardiology for medication recommendation Call placed to hospitalist for admission 06/21/18 04:50 06/21/18 05:34 Given Adenosine 6mg IV followed by 12 md IV No improvement Pt given Amiodarone 150mg IV followed by drip Pt hr vastly improved I do not see DNR paperwork in the system or a MOLST form Charting consistently has said this pt is DNR, he is wearing the DNR bracelet I have asked him if he would like us to do chest compressions or intubate if heart stops Pt state he does not want this *DC/Admit/Observation/Transfer Diagnosis at time of Disposition: Tachycardia - Discharge Dispostion Condition at time of disposition: Guarded Decision to Admit order: Yes - Referrals - Patient Instructions - Post Discharge Activity
[2018-06-21] MEDS ORDERED: SODIUM CHLORIDE 250 ML IV STA (04:50)
[2018-06-21] MEDS ORDERED: ADENOSINE 6 MG/2 ML VIAL IVPUSH ONE ×3 (04:52→05:09)
--- NOTE | 2018-06-21 05:08 | CON.CARD ---
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 No: Dementia Cardio/Vascular: Yes: HTN Pulmonary: Yes: COPD Psych: Yes: Depression Musculoskeletal: Yes: Other (left arm weakness ?post CVA) - Alcohol/Substance Use Hx Alcohol Use: No History of Substance Use: reports: None - Smoking History Smoking history: Never smoked Have you smoked in the past 12 months: No Aproximately how many cigarettes per day: 10 - Social History Usual Living Arrangement: Alone ADL: Independent History of Recent Travel: No Home Medications - Allergies Allergies/Adverse Reactions: Allergies Allergy/AdvReac Type Severity Reaction Status Date / Time No Known Allergies Allergy Verified 06/21/18 03:04 - Home Medications Home Medications: Ambulatory Orders Aspirin [ASA -] 81 mg PO DAILY 06/06/18 Atorvastatin Ca [Lipitor] 20 mg PO DAILY 06/06/18 Carvedilol [Coreg -] 3.125 mg PO BID 06/06/18 Hydrochlorothiazide [Hctz -] 25 mg PO DAILY 06/06/18 Citalopram Hydrobromide [Celexa -] 10 mg PO DAILY tablet 06/20/18 FENTANYL 50mcg PATCH [DURAGESIC 50 mcg PATCH -] 1 patch TD Q72H #0 patch.td72 MDD 1 06/20/18 Nystatin Oral Suspension - [Nystatin Oral Susp 739997 Units/5 ML -] 500,000 units PO Q6HPO cup 06/20/18 - Risk Factors Known Risk Factors: Yes: Age, Gender, Physical Inactivity, Prior NH /Emb Stroke Vital Signs: Vital Signs Temperature 98.1 F 06/21/18 03:27 Pulse Rate 135 H 06/21/18 04:03 Respiratory Rate 24 H 06/21/18 04:03 Blood Pressure 126/99 06/21/18 03:16 O2 Sat by Pulse Oximetry (%) 100 06/21/18 04:03 Constitutional: Yes: Thin Eyes: Yes: WNL HENT: Yes: WNL Neck: Yes: WNL - Other Data Labs, Other Data: CBC, BMP 06/21/18 00:05 06/21/18 00:05 INR, PTT INR 1.12 (0.83-1.09) H 06/21/18 00:05 Troponin, BNP 06/21/18 00:05 Troponin I 0.34 H B-Natriuretic Peptide 5638.2 H Troponin, BNP 06/21/18 00:05 Troponin I 0.34 H B-Natriuretic Peptide 5638.2 H Imaging - Results Chest X-ray: Image Reviewed (no acute pathology) Problem List - Problems (1) Renal dysfunction Code(s): N28.9 - DISORDER OF KIDNEY AND URETER, UNSPECIFIED (2) ALS (amyotrophic lateral sclerosis) Code(s): G12.21 - AMYOTROPHIC LATERAL SCLEROSIS (3) Tachycardia Assessment/Plan: EKG: tachycardic 130s to 150 bpm: likely sinus rhythm, though periods or irregular HR may be AF/atrial flutter, with (preexisting) RBBB and LAFB;less likely PSVT. Pt with uropathy; Na, CL, BUN and Cr are still elevated. Elevated BNP: r/o CHF, though no reported JVP, and CXR without acute pathology; renal dysfunction, COPD, systemic and pulmonary HTN, arrhythmia may contribute to the elevation; r/o PE (hypoxic; ? bedridden). Mildly elevated TNI (relatively unchanged from prior admissions Apr and May of this year). Recommend: Bolus IVF and follow HR, Is and Os, BUN/Cr, electrolytes. If HR is refractory to fluids, consider adenosine for diagnostic/therapeutic purposes. Pt has been on carvedilol (last dose of 3.125 mg was 06/19/18 in the morning); restart if remains hemodynamically stable; amiodarone if refractory to the above, or if he becomes hemodynamically unstable. Anticoagulation until PE (and AF/flutter) is ruled out (hx of falls, but pt is now reportedly weak and bed-ridden); f/u D dimer, consider CTA if renal function improves; otherwise, VQ scan. F/u these options with car oiler. Serial EKGs. ECHO for LVEF, wall motion, chamber sizes, RVSP, valve status. Code(s): R00.0 - TACHYCARDIA, UNSPECIFIED (4) Anxiety and depression Code(s): F41.9 - ANXIETY DISORDER, UNSPECIFIED; F32.9 - MAJOR DEPRESSIVE DISORDER, SINGLE EPISODE, UNSPECIFIED (5) Azotemia Code(s): R79.89 - OTHER SPECIFIED ABNORMAL FINDINGS OF BLOOD CHEMISTRY (6) Dehydration Code(s): E86.0 - DEHYDRATION (7) Weakness Code(s): R53.1 - WEAKNESS (8) Troponin level elevated Assessment/Plan: mildl TNI elevated also noted on prior admissions April and May; CK/MB relative index <5. While cardiac injury should be considered, other factors, including renal dysfunction, arrhythmia, COPD, anemia, CHF are likelier contributers to the elevation. ECHO for LVEF, wall motion Code(s): R74.8 - ABNORMAL LEVELS OF OTHER SERUM ENZYMES (9) Anemia Assessment/Plan: stool quaiac F/u Hb as fluids are reinstituted. Code(s): D64.9 - ANEMIA, UNSPECIFIED (10) Hypoxia Assessment/Plan: f/u with car oiler. r/o PE. Code(s): R09.02 - HYPOXEMIA (11) Hyperlipidemia Assessment/Plan: on statin; f/u lipid panel Code(s): E78.5 - HYPERLIPIDEMIA, UNSPECIFIED
--- NOTE | 2018-06-21 05:09 | PDOC ---
History of Present Illness - General Chief Complaint: Tachycardia Stated Complaint: HEART PROBLEM Time Seen by Provider: 06/21/18 03:00 History Source: EMS, Correction Records Exam Limitations: Clinical Condition Past History - Past Medical History Allergies/Adverse Reactions: Allergies Allergy/AdvReac Type Severity Reaction Status Date / Time No Known Allergies Allergy Verified 06/21/18 03:04 Home Medications: Ambulatory Orders Aspirin [ASA -] 81 mg PO DAILY 06/06/18 Atorvastatin Ca [Lipitor] 20 mg PO DAILY 06/06/18 Carvedilol [Coreg -] 3.125 mg PO BID 06/06/18 Hydrochlorothiazide [Hctz -] 25 mg PO DAILY 06/06/18 Citalopram Hydrobromide [Celexa -] 10 mg PO DAILY tablet 06/20/18 FENTANYL 50mcg PATCH [DURAGESIC 50 mcg PATCH -] 1 patch TD Q72H #0 patch.td72 MDD 1 06/20/18 Nystatin Oral Suspension - [Nystatin Oral Susp 125024 Units/5 ML -] 500,000 units PO Q6HPO cup 06/20/18 Anemia: No COPD: No HTN: Yes Hypercholesterolemia: Yes Other medical history: ALS - Surgical History Appendectomy: Yes - Immunization History Immunization Up to Date: Yes - Suicide/Smoking/Psychosocial Hx Smoking History: Never smoked Have you smoked in the past 12 months: No Number of Cigarettes Smoked Daily: 10 Information on smoking cessation initiated: No 'Breaking Loose' booklet given: 03/29/18 Hx Alcohol Use: No Drug/Substance Use Hx: No Substance Use Type: Alcohol Hx Substance Use Treatment: No *Physical Exam - Vital Signs Last Vital Signs Temp Pulse Resp BP Pulse Ox 98.1 F 135 H 24 H 126/99 100 06/21/18 03:27 06/21/18 04:03 06/21/18 04:03 06/21/18 03:16 06/21/18 04:03 - Physical Exam General Appearance: Yes: Cachetic, Thin. No: Apparent Distress HEENT: positive: Other (Dry mucuous membranes) Respiratory/Chest: positive: Lungs Clear, Normal Breath Sounds. negative: Respiratory Distress Cardiovascular: positive: Regular Rate, S1, S2, Tachycardia. negative: JVD Gastrointestinal/Abdominal: positive: Normal Bowel Sounds, Soft. negative: Tender, Distended, Guarding, Rebound Extremity: negative: Pedal Edema, Swelling, Calf Tenderness Integumentary: positive: Normal Color Neurologic: positive: Fully Oriented, Alert, Normal Mood/Affect Moderate Sedation - Procedure Monitoring Vital Signs: Procedure Monitoring Vital Signs Temperature 98.1 F 06/21/18 03:27 Pulse Rate 135 H 06/21/18 04:03 Respiratory Rate 24 H 06/21/18 04:03 Blood Pressure 126/99 06/21/18 03:16 O2 Sat by Pulse Oximetry (%) 100 06/21/18 04:03 ED Treatment Course - LABORATORY CBC & Chemistry Diagram: 06/21/18 00:05 06/21/18 00:05 - ADDITIONAL ORDERS Additional order review: Laboratory Results 06/21/18 06/21/18 06/21/18 00:05 00:05 00:05 PT with INR 13.20 H INR 1.12 H Sodium 150 H Potassium 4.3 Chloride 110 H Carbon Dioxide 30 Anion Gap 10 BUN 81 H Creatinine 1.4 H Creat Clearance w eGFR 50.40 Random Glucose 122 H Calcium 8.5 Magnesium 1.8 Total Bilirubin 0.7 AST 55 H ALT 41 Alkaline Phosphatase 91 Creatine Kinase 609 H Creatine Kinase Index 1.9 CK-MB (CK-2) 11.8 H Troponin I 0.34 H B-Natriuretic Peptide 5638.2 H Total Protein 6.1 L Albumin 2.8 L Blood Type B POSITIVE 06/21/18 00:05 RBC 3.81 L MCV 91.0 MCHC 34.7 RDW 14.5 MPV 9.9 Neutrophils % 90.2 H Lymphocytes % 3.2 L Monocytes % 6.6 Eosinophils % 0.0 D Basophils % 0.0 Medical Decision Making - Medical Decision Making 68 y/o M hx of presumed ALS, HTN, depression, indwelling ray due to obstructive uropathy (from recent admission, believed to be due to BPH), recently discharged from hospital 06/20 to [facility] SNF returns from there for hypoxia. Per SNF notes, patient was 87% on 2L and 90% on 3L; patient with normal HR and BP at the time. On EMS arrival, patient HR was ranging from 140-160. Patient is able to talk softly and just mentions overall not feeling well; c/o generalized pain and SOB (which appears to be chronic based on prior notes). Patient is DNR/DNI based on prior notes as well. Current meds: Celexa Nystatin ASA Hctz Coreg Lipitor Tylenol On arrival, patient was placed on nonrebreather mask, but patient refused mask. Without mask, patient pulse ox dropped to 90%. Patient placed on 4L NC with improved in pulse ox. Patient appears very dry on exam. EKG showed what appears as possible SVT with PVCs. EKG reviewed with prism inspector, Dr. Faye, who reviewed images - believes it is sinus rhythm; unlikely vtach; recommended to try Adenosine to see if it helps. Patient was given 6 mg of Adenosine and then later 12 mg of Adenosine but unable to break rhythm. Patient then given 150 mg of Amiodarone with improvement of HR to 100-110. Given recent hospital stay, hypoxia and tachycardia, concern for PE also raised. CXR appears unremarkable. Labs showed elevated trop but has been elevated in past as well. BNP elevated as well, but patient does not appear fluid overloaded and given CXR, unlikely CHF. Na is 150, BUN 81 and Cr 1.4 ( kidney function better than prior); consider possible dehydration as well. Patient was given bolus of NS 250 and started on maintenance IVF at 75 cc/hour. Heparin drip was also started in case this was possibly PE as unable to get CTA done given patient's kidney function. Patient admitted to medicine for further care. 06/21/18 05:27 *DC/Admit/Observation/Transfer Diagnosis at time of Disposition: Tachycardia, Hypoxia - Discharge Dispostion Condition at time of disposition: Stable Decision to Admit order: Yes - Referrals - Patient Instructions - Post Discharge Activity
[2018-06-21] MEDS ORDERED: HEPARIN INFUSION - 25,000 UNITS/500 ML INFUS.BAG IVPB ONE (05:10)
[2018-06-21] MEDS ORDERED: HEPARIN - 25,000 UNIT in SODIUM CHLORIDE 495 ML IV SCH (05:15)
[2018-06-21] MEDS ORDERED: AMIODARONE HCL 150 MG/3 ML VIAL ONE (05:24)
[2018-06-21] MEDS ORDERED: AMIODARONE HCL 150 MG/3 ML VIAL IVPUSH ONE (05:25)
[2018-06-21] MEDS ORDERED: AMIODARONE IN DEXTROSE,ISO-OSM 360 MG/200 ML BAG IVPB SCH (05:45)
--- NOTE | 2018-06-21 06:07 | HP ---
CHIEF COMPLAINT: hypoxia PCP: HISTORY OF PRESENT ILLNESS: 68 yo M h/o advanced ALS, h/o recent KADEN 2/2 post obstructive uropathy, s/p ray cathether (which remains indwelling). Patient was d/c to longterm facility yesterday and was sent back to hospital because of hypoxia which was reported at snf. Patient was very tachycardic in ER with EKG showing ventricular tachycardia vs svt. He was hemodynamically stable. Patient is DNR/ DNI as per recent hospital documentation. ER course was notable for: (1) ekg (2) adenosine (3) amiodarone iv Recent Travel: no PAST MEDICAL HISTORY: as above PAST SURGICAL HISTORY: none mentioned Social History: Smoking: no Alcohol: no Drugs: no Family History: Allergies No Known Allergies Allergy (Verified 06/21/18 03:04) HOME MEDICATIONS: Home Medications Medication Instructions Recorded Aspirin [ASA -] 81 mg PO DAILY 06/06/18 Atorvastatin Ca [Lipitor] 20 mg PO DAILY 06/06/18 Carvedilol [Coreg -] 3.125 mg PO BID 06/06/18 Hydrochlorothiazide [Hctz -] 25 mg PO DAILY 06/06/18 Citalopram Hydrobromide [Celexa -] 10 mg PO DAILY tablet 06/20/18 FENTANYL 50mcg PATCH [DURAGESIC 50 1 patch TD Q72H #0 patch.td72 MDD 1 06/20/18 mcg PATCH -] Nystatin Oral Suspension - 500,000 units PO Q6HPO cup 06/20/18 [Nystatin Oral Susp 007991 Units/5 ML -] REVIEW OF SYSTEMS - unable to obtain proper ROS as patient appears to be delerious from underlying medical condition and is not answering questions properly PHYSICAL EXAMINATION Vital Signs - 24 hr 06/21/18 06/21/18 06/21/18 03:16 03:27 04:03 Temperature 98.1 F Pulse Rate 146 H 135 H Respiratory 24 H 24 H Rate Blood Pressure 126/99 O2 Sat by Pulse 100 100 Oximetry (%) GENERAL: cachectic, appears to be in some distress. HEAD: Normal with no signs of trauma. EYES: Pupils equal, round and reactive to light, extraocular movements intact, sclera anicteric, conjunctiva clear. No lid lag. EARS, NOSE, THROAT: Ears normal, nares patent, oropharynx clear without exudates. Moist mucous membranes. NECK: Normal range of motion, supple without lymphadenopathy, JVD, or masses. LUNGS: Breath sounds equal, clear to auscultation bilaterally. +accessory muscle use. HEART: tachycardic normal S1 and S2 without murmur, rub or gallop. ABDOMEN: Soft, nontender, not distended, normoactive bowel sounds, no guarding, no rebound, no masses. No hepatomegaly or splenomegaly. MUSCULOSKELETAL: wasted muscles UPPER EXTREMITIES: 2+ pulses, warm, well-perfused. No cyanosis. No clubbing. No peripheral edema. LOWER EXTREMITIES: 2+ pulses, warm, well-perfused. No calf tenderness. No peripheral edema. NEUROLOGICAL: unable to ambulate due to ALS PSYCHIATRIC: Cooperative. Good eye contact. Appropriate mood and affect. SKIN: Warm, dry, normal turgor, no rashes or lesions noted, normal capillary refill. indwelling ray catheter Laboratory Results - last 24 hr 06/21/18 06/21/18 06/21/18 00:05 00:05 00:05 WBC 9.7 RBC 3.81 L Hgb 12.1 Hct 34.7 L MCV 91.0 MCH 31.6 MCHC 34.7 RDW 14.5 Plt Count 138 MPV 9.9 Absolute Neuts (auto) 8.8 H Neutrophils % 90.2 H Lymphocytes % 3.2 L Monocytes % 6.6 Eosinophils % 0.0 D Basophils % 0.0 Nucleated RBC % 0 PT with INR 13.20 H INR 1.12 H Sodium 150 H Potassium 4.3 Chloride 110 H Carbon Dioxide 30 Anion Gap 10 BUN 81 H Creatinine 1.4 H Creat Clearance w eGFR 50.40 Random Glucose 122 H Calcium 8.5 Magnesium 1.8 Total Bilirubin 0.7 AST 55 H ALT 41 Alkaline Phosphatase 91 Creatine Kinase 609 H Creatine Kinase Index 1.9 CK-MB (CK-2) 11.8 H Troponin I 0.34 H B-Natriuretic Peptide 5638.2 H Total Protein 6.1 L Albumin 2.8 L Blood Type 06/21/18 00:05 WBC RBC Hgb Hct MCV MCH MCHC RDW Plt Count MPV Absolute Neuts (auto) Neutrophils % Lymphocytes % Monocytes % Eosinophils % Basophils % Nucleated RBC % PT with INR INR Sodium Potassium Chloride Carbon Dioxide Anion Gap BUN Creatinine Creat Clearance w eGFR Random Glucose Calcium Magnesium Total Bilirubin AST ALT Alkaline Phosphatase Creatine Kinase Creatine Kinase Index CK-MB (CK-2) Troponin I B-Natriuretic Peptide Total Protein Albumin Blood Type B POSITIVE cxr and multiple EKGs reviewed ASSESSMENT/PLAN: #Tachycardia/hypoxia/troponin leak- high suspiscion for PE as patient is bedbound and high risk for VTE. Troponin has been elevated chronically. No endorsed chest pain. Cannot obtain CTA at this time due to poor renal function. -heparin drip empirically pending -cardiology evaluation -coreg 6.25 mg po bid -transthoracic echo -CTA if renal function improves, if not then V/Q scan -Lower ext duplex scan to r/o DVT #Hypernatremia- likely dehydration from poor PO intake -D5W/NS at 75cc/hr -renal consult -check BMP q6hrs #ALS - poor prognosis, patient is bedbound -consider neuro f/u -NPO for now #DVT ppx- -heparin drip ordered #Advanced directives- patient is DNR/DNI as per recent hospital documentation and purple wrist band. Must obtain official form. Visit type - Emergency Visit Emergency Visit: Yes ED Registration Date: 06/21/18 Care time: The patient presented to the Emergency Department on the above date and was hospitalized for further evaluation of their emergent condition. - New Patient This patient is new to me today: Yes Date on this admission: 06/21/18 - Critical Care Critical Care patient: No
[2018-06-21] MEDS: DEXTROSE 5%-NORMAL SALINE 1,000 ML IV SCH (06:09)
[2018-06-21] MEDS ORDERED: CARVEDILOL 6.25 MG TABLET (FP) PO ONE (06:33)
[2018-06-21] MEDS ORDERED: CARVEDILOL 3.125 MG TABLET (FP) ONE ×2 (07:18→09:52)
--- NOTE | 2018-06-21 09:40 | PN ---
Progress Note (short form) - Note Progress Note: weak, readmitted for acute renal failure, SOB Vital Signs - 24 hr 06/21/18 06/21/18 06/21/18 03:16 03:27 04:03 Temperature 98.1 F Pulse Rate 146 H 135 H Pulse Rate [ Left Apical] Respiratory 24 H 24 H Rate Blood Pressure 126/99 Blood Pressure [Left Arm] O2 Sat by Pulse 100 100 Oximetry (%) 06/21/18 06/21/18 06/21/18 04:09 06:12 08:25 Temperature Pulse Rate Pulse Rate [ 155 H 114 H 132 H Left Apical] Respiratory 20 20 22 H Rate Blood Pressure Blood Pressure 126/99 131/78 96/68 [Left Arm] O2 Sat by Pulse 100 98 Oximetry (%) 06/21/18 06/21/18 06/21/18 11:34 12:32 12:55 Temperature 98.8 F Pulse Rate 128 H Pulse Rate [ 108 H Left Apical] Respiratory 21 H 21 H 24 H Rate Blood Pressure 98/60 Blood Pressure 110/79 [Left Arm] O2 Sat by Pulse 100 Oximetry (%) 06/21/18 06/21/18 13:16 14:37 Temperature 98.9 F Pulse Rate 120 H Pulse Rate [ Left Apical] Respiratory 22 H Rate Blood Pressure 117/68 Blood Pressure [Left Arm] O2 Sat by Pulse 100 Oximetry (%) Current Medications Generic Name Dose Route Start Last Admin Trade Name Freq PRN Reason Stop Dose Admin Carvedilol 6.25 mg 06/21/18 10:00 06/21/18 10:05 Coreg - PO 6.25 mg BID STEFFANIE Administration Citalopram Hydrobromide 10 mg 06/21/18 10:00 06/21/18 10:05 Celexa - PO 10 mg DAILY STEFFANIE Administration Enoxaparin Sodium 60 mg 06/21/18 12:17 Lovenox - SQ BID STEFFANIE Fentanyl 1 patch 06/21/18 13:00 06/21/18 14:04 Duragesic 50mcg Patch - TD 1 patch Q3D STEFFANIE Administration Dextrose/Sodium Chloride 1,000 mls @ 75 mls/hr 06/21/18 05:45 06/21/18 06:09 D5-Ns - IV 75 mls/hr ASDIR STEFFANIE Administration Miscellaneous 1 each 06/21/18 12:57 06/21/18 14:05 Duragesic Patch Waste TD 1 each PRN PRN Administration PAIN Morphine Sulfate 1 mg 06/21/18 12:57 06/21/18 17:12 Morphine Sulfate IVPUSH 1 mg Q4H PRN Administration PAIN LEVEL 6-10 Laboratory Results - last 24 hr 06/21/18 06/21/18 06/21/18 00:05 00:05 00:05 WBC 9.7 RBC 3.81 L Hgb 12.1 Hct 34.7 L MCV 91.0 MCH 31.6 MCHC 34.7 RDW 14.5 Plt Count 138 MPV 9.9 Absolute Neuts (auto) 8.8 H Neutrophils % 90.2 H Lymphocytes % 3.2 L Monocytes % 6.6 Eosinophils % 0.0 D Basophils % 0.0 Nucleated RBC % 0 PT with INR 13.20 H INR 1.12 H Sodium 150 H Potassium 4.3 Chloride 110 H Carbon Dioxide 30 Anion Gap 10 BUN 81 H Creatinine 1.4 H Creat Clearance w eGFR 50.40 Random Glucose 122 H Calcium 8.5 Magnesium 1.8 Total Bilirubin 0.7 AST 55 H ALT 41 Alkaline Phosphatase 91 Creatine Kinase 609 H Creatine Kinase Index 1.9 CK-MB (CK-2) 11.8 H Troponin I 0.34 H B-Natriuretic Peptide 5638.2 H Total Protein 6.1 L Albumin 2.8 L Blood Type Antibody Screen 06/21/18 06/21/18 06/21/18 00:05 07:15 08:08 WBC RBC Hgb Hct MCV MCH MCHC RDW Plt Count MPV Absolute Neuts (auto) Neutrophils % Lymphocytes % Monocytes % Eosinophils % Basophils % Nucleated RBC % PT with INR INR Sodium Potassium Chloride Carbon Dioxide Anion Gap BUN Creatinine Creat Clearance w eGFR Random Glucose Calcium Magnesium Total Bilirubin AST ALT Alkaline Phosphatase Creatine Kinase 581 H Creatine Kinase Index 2.1 CK-MB (CK-2) 12.3 H Troponin I 0.34 H B-Natriuretic Peptide Total Protein Albumin Blood Type B POSITIVE B POSITIVE Antibody Screen Negative S1 S2 RRR tachycardic Lungs decreased Abd- soft, NT No edema cachetic PLAN IV fluids Dc heparin drip pt has rapidly progressive ALS does not want aggressive measures- wants to be kept comfortable IV Morphine PRN Fentanyl patch Problem List - Problems (1) ALS (amyotrophic lateral sclerosis) Code(s): G12.21 - AMYOTROPHIC LATERAL SCLEROSIS (2) Anemia Code(s): D64.9 - ANEMIA, UNSPECIFIED (3) Hypoxia Code(s): R09.02 - HYPOXEMIA (4) Renal dysfunction Code(s): N28.9 - DISORDER OF KIDNEY AND URETER, UNSPECIFIED (5) Tachycardia Code(s): R00.0 - TACHYCARDIA, UNSPECIFIED (6) ARF (acute renal failure) Code(s): N17.9 - ACUTE KIDNEY FAILURE, UNSPECIFIED
[2018-06-21] MEDS ORDERED: ASPIRIN COATED 81 MG TABLET.EC ONE (09:52)
[2018-06-21] MEDS ORDERED: CITALOPRAM HYDROBROMIDE 10 MG TABLET (FP) ONE (09:53)
[2018-06-21] MEDS ORDERED: HYDROCHLOROTHIAZIDE 25 MG TABLET (FP) PO SCH (10:00)
[2018-06-21] MEDS ORDERED: ASPIRIN COATED 81 MG TABLET.EC PO SCH (10:00)
[2018-06-21] MEDS: CITALOPRAM HYDROBROMIDE 10 MG TABLET (FP) PO SCH (10:05)
[2018-06-21] MEDS: CARVEDILOL 6.25 MG TABLET (FP) PO SCH ×2 (10:05→21:35)
[2018-06-21] MEDS ORDERED: ENOXAPARIN NA (PORCINE) 60 MG/0.6 ML DISP.SYRIN SQ SCH (10:45)
[2018-06-21] MEDS ORDERED: FENTANYL PATCH WASTE TD PRN (12:57)
[2018-06-21] MEDS ORDERED: fentaNYL 50mcg/hr PATCH.TD72 TD SCH (13:00)
--- NOTE | 2018-06-21 13:03 | EKG ---
Test Reason : Blood Pressure : / mmHG Vent. Rate : 138 BPM Atrial Rate : 136 BPM P-R Int : 000 ms QRS Dur : 140 ms QT Int : 352 ms P-R-T Axes : 000 -85 080 degrees QTc Int : 533 ms UNDETERMINED RHYTHM RIGHT BUNDLE BRANCH BLOCK LEFT ANTERIOR FASCICULAR BLOCK BIFASCICULAR BLOCK LEFT VENTRICULAR HYPERTROPHY WITH REPOLARIZATION ABNORMALITY CANNOT RULE OUT SEPTAL INFARCT (CITED ON OR BEFORE 05-MAY-2018) POSSIBLE LATERAL INFARCT (CITED ON OR BEFORE 06-JUN-2018) ABNORMAL ECG WHEN COMPARED WITH ECG OF 06-JUN-2018 13:16, CURRENT UNDETERMINED RHYTHM PRECLUDES RHYTHM COMPARISON, NEEDS REVIEW RIGHT BUNDLE BRANCH BLOCK IS NOW PRESENT QUESTIONABLE CHANGE IN INITIAL FORCES OF SEPTAL LEADS QUESTIONABLE CHANGE IN INITIAL FORCES OF LATERAL LEADS Confirmed by LASHA AVELAR, LATASHA ([id number]) on 06/21/2018 1:02:58 PM Referred By: Confirmed By:LATASHA COLBY MD
--- NOTE | 2018-06-21 13:25 | PN ---
Progress Note, Physician History of Present Illness: Mr Erazo is a 68 yo M h/o ALS, h/o recent KADEN 2/2 post obstructive uropathy Now s/p ray cathether (which remains indwelling) Pt was discharged to the SNF today today Per nursing notes, the patient was noted to be hypoxic Vital signs reveal tachycardia Pt denies chest pain He notes a cough No vomiting or diarrhea - Current Medication List Current Medications: Active Medications Carvedilol (Coreg -) 6.25 mg PO BID [facility] Last Admin: 06/21/18 10:05 Dose: 6.25 mg Citalopram Hydrobromide (Celexa -) 10 mg PO DAILY [facility] Last Admin: 06/21/18 10:05 Dose: 10 mg Enoxaparin Sodium (Lovenox -) 60 mg SQ BID [facility] Fentanyl (Duragesic 50mcg Patch -) 1 patch TD Q3D [facility] Dextrose/Sodium Chloride (D5-Ns -) 1,000 mls @ 75 mls/hr IV ASDIR [facility] Last Admin: 06/21/18 06:09 Dose: 75 mls/hr Miscellaneous (Duragesic Patch Waste) 1 each TD PRN PRN PRN Reason: PAIN Morphine Sulfate (Morphine Sulfate) 1 mg IVPUSH Q4H PRN PRN Reason: PAIN LEVEL 6-10 - Objective Vital Signs: Vital Signs Temperature 98.8 F 06/21/18 12:55 Pulse Rate 128 H 06/21/18 12:55 Respiratory Rate 24 H 06/21/18 12:55 Blood Pressure 98/60 06/21/18 12:55 O2 Sat by Pulse Oximetry (%) 100 06/21/18 12:32 Eyes: Yes: WNL, Conjunctiva Clear, EOM Intact HENT: Yes: WNL, Atraumatic, Normocephalic Neck: Yes: WNL, Supple, Trachea Midline Cardiovascular: Yes: WNL, Regular Rate and Rhythm Respiratory: Yes: Rhonchi Gastrointestinal: Yes: WNL, Normal Bowel Sounds Genitourinary: Yes: WNL Musculoskeletal: Yes: WNL Extremities: Yes: WNL Edema: No Integumentary: Yes: WNL Neurological: Yes: WNL, Alert, Oriented ...Motor Strength: WNL Psychiatric: Yes: WNL Labs: CBC, BMP 06/21/18 00:05 06/21/18 00:05 INR, PTT INR 1.12 (0.83-1.09) H 06/21/18 00:05 Assessment/Plan - Problems (1) Renal dysfunction Code(s): N28.9 - DISORDER OF KIDNEY AND URETER, UNSPECIFIED (2) ALS (amyotrophic lateral sclerosis) Code(s): G12.21 - AMYOTROPHIC LATERAL SCLEROSIS (3) Tachycardia Assessment/Plan: EKG: tachycardic 130s to 150 bpm: likely sinus rhythm, though periods or irregular HR may be AF/atrial flutter, with (preexisting) RBBB and LAFB;less likely PSVT. Pt with uropathy; Na, CL, BUN and Cr are still elevated. Elevated BNP: r/o CHF, though no reported JVP, and CXR without acute pathology; renal dysfunction, COPD, systemic and pulmonary HTN, arrhythmia may contribute to the elevation; r/o PE (hypoxic; ? bedridden). Mildly elevated TNI (relatively unchanged from prior admissions Apr and May of this year). Recommend: Bolus IVF and follow HR, Is and Os, BUN/Cr, electrolytes. If HR is refractory to fluids, consider adenosine for diagnostic/therapeutic purposes. Pt has been on carvedilol (last dose of 3.125 mg was 06/19/18 in the morning); restart if remains hemodynamically stable; amiodarone if refractory to the above, or if he becomes hemodynamically unstable. Anticoagulation until PE (and AF/flutter) is ruled out (hx of falls, but pt is now reportedly weak and bed-ridden); f/u D dimer, consider CTA if renal function improves; otherwise, VQ scan. F/u these options with portfolio manager. Serial EKGs. ECHO for LVEF, wall motion, chamber sizes, RVSP, valve status. Code(s): R00.0 - TACHYCARDIA, UNSPECIFIED (4) Anxiety and depression Code(s): F41.9 - ANXIETY DISORDER, UNSPECIFIED; F32.9 - MAJOR DEPRESSIVE DISORDER, SINGLE EPISODE, UNSPECIFIED (5) Azotemia Code(s): R79.89 - OTHER SPECIFIED ABNORMAL FINDINGS OF BLOOD CHEMISTRY (6) Dehydration Code(s): E86.0 - DEHYDRATION (7) Weakness Code(s): R53.1 - WEAKNESS (8) Troponin level elevated Assessment/Plan: mildl TNI elevated also noted on prior admissions April and May; CK/MB relative index <5. While cardiac injury should be considered, other factors, including renal dysfunction, arrhythmia, COPD, anemia, CHF are likelier contributers to the elevation. ECHO for LVEF, wall motion Code(s): R74.8 - ABNORMAL LEVELS OF OTHER SERUM ENZYMES (9) Anemia Assessment/Plan: stool quaiac F/u Hb as fluids are reinstituted. Code(s): D64.9 - ANEMIA, UNSPECIFIED (10) Hypoxia Assessment/Plan: f/u with portfolio manager. r/o PE. Code(s): R09.02 - HYPOXEMIA (11) Hyperlipidemia Assessment/Plan: on statin; f/u lipid panel Code(s): E78.5 - HYPERLIPIDEMIA, UNSPECIFIED
[2018-06-21] MEDS: MORPHINE SULFATE 2 MG/ML VIAL IVPUSH PRN ×2 (13:40→17:12)
--- NOTE | 2018-06-21 14:38 | ECHO ---
Name: LISHA BROOKS Exam:Adult Echocardiogram Study Date: 06/21/2018 11:00 AM Age: 68 yrs Reason For Study: Tachycardia; HYPOXIA; ELEVATED TNI MMode/2D Measurements & Calculations IVSd: 0.99 cm Ao root diam: 2.7 cm LVIDd: 5.3 cm LA dimension: 2.4 cm LVIDs: 3.7 cm LVPWd: 0.95 cm LVPWs: 2.1 cm EDV(Teich): 135.4 ml ESV(Teich): 57.4 ml TAPSE: 2.2 cm Doppler Measurements & Calculations Ao V2 max: 182.4 cm/sec AI max vianney: 404.7 cm/sec Ao max P.3 mmHg AI max P.5 mmHg AI P1/2t: 379.6 msec AI dec slope: 312.2 cm/sec2 LV V1 max P.8 mmHg MR max vianney: 489.7 cm/sec LV V1 max: 97.5 cm/sec MR max P.0 mmHg TR max vianney: 262.1 cm/sec PA V2 max: 101.8 cm/sec TR max P.5 mmHg PA max P.1 mmHg Med Peak E' Vianney: 7.6 cm/sec Lat Peak E' Vianney: 7.3 cm/sec Procedure A two-dimensional transthoracic echocardiogram with color flow and Doppler was performed. Left Ventricle The left ventricle is grossly normal size. Left ventricular systolic function is mild to moderately r educed. Septal motion is consistent with conduction abnormality. There is apical dyskinesis. Regional wall mo tion abnormalities cannot be excluded due to limited visualization. prominent lateral papilary muscle pres ent. Right Ventricle The right ventricle is grossly normal size. Atria Normal left and right atrial size and function. Mitral Valve There is mild mitral valve thickening. There is no mitral valve stenosis. There is mild mitral regurg itation. Tricuspid Valve There is mild tricuspid valve thickening. There is no tricuspid stenosis. There is moderate tricuspid regurgitation. Right ventricular systolic pressure is normal. Aortic Valve The aortic valve is not well visualized. No hemodynamically significant valvular aortic stenosis. Mil d aortic regurgitation. Pulmonic Valve The pulmonic valve is not well visualized. Great Vessels The aortic root is normal size. Pericardium/Pleura There is no pericardial effusion. Interpretation Summary There is moderate tricuspid regurgitation. Right ventricular systolic pressure is normal. Septal motion is consistent with conduction abnormality. There is apical dyskinesis. The left ventricle is grossly normal size. Left ventricular systolic function is mild to moderately reduced. Regional wall motion abnormalities cannot be excluded due to limited visualization. Mild aortic regurgitation. prominent lateral papilary muscle present There is mild mitral regurgitation. MD Vernon Noel 06/21/2018 02:37 PM
--- NOTE | 2018-06-21 14:59 | PN ---
Progress Note (short form) - Note Progress Note: Renal follow up for KADEN This is a 68 year old gentleman with hx of ALS with recent admission during which pt had obstructive uropathy with KADEN now presennts with hypoxia and tachycardia from the [place]. Pt complains of pain all over. Ray remains in place . No fever recorded. Reports + SOB, but no chest pain. Pt does not ambulate. Vital Signs Temperature 98.9 F 06/21/18 14:37 Pulse Rate 120 H 06/21/18 14:37 Respiratory Rate 22 H 06/21/18 14:37 Blood Pressure 117/68 06/21/18 14:37 O2 Sat by Pulse Oximetry (%) 100 06/21/18 13:16 Intake & Output 06/18/18 06/19/18 06/20/18 06/21/18 23:59 23:59 23:59 23:59 Weight 66.224 kg NAD Neck supple RRR, No M/R CTA, no rales or wheeze soft NT/ND no LE edmea ray in place CBC, BMP 06/21/18 00:05 06/21/18 00:05 Current Medications Carvedilol (Coreg -) 6.25 mg PO BID [facility] Last Admin: 06/21/18 10:05 Dose: 6.25 mg Citalopram Hydrobromide (Celexa -) 10 mg PO DAILY [facility] Last Admin: 06/21/18 10:05 Dose: 10 mg Enoxaparin Sodium (Lovenox -) 60 mg SQ BID [facility] Fentanyl (Duragesic 50mcg Patch -) 1 patch TD Q3D [facility] Last Admin: 06/21/18 14:04 Dose: 1 patch Dextrose/Sodium Chloride (D5-Ns -) 1,000 mls @ 75 mls/hr IV ASDIR [facility] Last Admin: 06/21/18 06:09 Dose: 75 mls/hr Miscellaneous (Duragesic Patch Waste) 1 each TD PRN PRN PRN Reason: PAIN Last Admin: 06/21/18 14:05 Dose: 1 each Morphine Sulfate (Morphine Sulfate) 1 mg IVPUSH Q4H PRN PRN Reason: PAIN LEVEL 6-10 Last Admin: 06/21/18 13:40 Dose: 1 mg 68 year old gentleman with hx of ALS with recent admission during which pt had obstructive uropathy with KADEN now presents with hypoxia and tachycardia from the [place]. #Acute Renal failure secondary to obstrutive uropathy now improving with ray placement #Hypernatremia #Hypoxia #Tachycardia #ALS Renal function stable from discharge, both BUN/Cr slightly lower Would continue isotonic saline for now with ray being maintained if pt does need a contrast study to r/o PE his risk of contrast nephropathy is 7.5% and risk of acute dialysis was 0.04% would maintain on saline if pt were to to get contrast exposure. continue supportive care Salas Arevalo DO
[2018-06-21] MEDS: ENOXAPARIN NA (PORCINE) 60 MG/0.6 ML DISP.SYRIN SQ SCH (21:35)
[2018-06-21] MEDS ORDERED: ATORVASTATIN CA 20 MG TABLET (FP) PO SCH (22:00)
[2018-06-22] MEDS: DEXTROSE 5%-NORMAL SALINE 1,000 ML IV SCH (06:05)
[2018-06-22 07:02] LABS: BASO % 0.1 % (0-2.0); HEMATOCRIT 38.5 % (35.4-49); HEMOGLOBIN 12.1 GM/dL (11.7-16.9); LYMPH % 7.8 % (8-40); MCH 29.8 pg (25.7-33.7); MCHC 31.4 g/dl (32.0-35.9); MEAN PLT VOLUME 10.3 fl (7.5-11.1); MONO % 8.6 % (3.8-10.2); NEUT % 83.5 % (42.8-82.8); PLATELET COUNT 138 K/MM3 (134-434); RBC 4.05 M/mm3 (4.00-5.60); WHITE BLOOD COUNT 7.4 K/mm3 (4.0-10.0)
[2018-06-22 07:33] LABS: ANION GAP 8 MMOL/L (8-16); BLOOD UREA NITROGEN 75 mg/dL (7-18); CALCIUM 8.3 mg/dL (8.5-10.1); CHLORIDE 115 mmol/L (98-107); CO2 33 mmol/L (21-32); CREATININE 1.3 mg/dL (0.55-1.3); GLUCOSE,RANDOM 111 mg/dL (74-106); MAGNESIUM 1.8 mg/dL (1.8-2.4); POTASSIUM 3.8 mmol/L (3.5-5.1); SODIUM 156 mmol/L (136-145)
[2018-06-22] MEDS: CITALOPRAM HYDROBROMIDE 10 MG TABLET (FP) PO SCH (09:55)
[2018-06-22] MEDS: ENOXAPARIN NA (PORCINE) 60 MG/0.6 ML DISP.SYRIN SQ SCH (09:55)
[2018-06-22] MEDS: CARVEDILOL 6.25 MG TABLET (FP) PO SCH (09:55)
[2018-06-22 10:20] VITALS: BP 141/88; PULSE 90; TEMP 98.1
--- NOTE | 2018-06-22 11:15 | DS ---
Physical Examination Vital Signs: Vital Signs Temperature 98.1 F 06/22/18 10:00 Pulse Rate 90 06/22/18 10:00 Respiratory Rate 18 06/22/18 10:00 Blood Pressure 141/88 06/22/18 10:00 O2 Sat by Pulse Oximetry (%) 100 06/21/18 21:00 Constitutional: Yes: No Distress, Cachectic Cardiovascular: Yes: Regular Rate and Rhythm Respiratory: Yes: Diminished Gastrointestinal: Yes: Normal Bowel Sounds, Soft. No: Tenderness Edema: No Labs: CBC, BMP 06/22/18 05:30 06/22/18 05:30 Discharge Summary Reason For Visit: TACYCARDIA Current Active Problems ALS (amyotrophic lateral sclerosis) (Acute) Anemia (Acute) Hyperlipidemia (Acute) Hypoxia (Acute) Renal dysfunction (Acute) Tachycardia (Acute) Hospital Course: Admitted for dehydration, failure to thrive Pt has progressive ALS-- advanced disease He is unable to eat , ambulate He does not wish for aggressive measures-- no peg tube, ventilatory support Pt is DNR/DNI Pt will be transferred to [facility] Condition: Guarded - Instructions Disposition: TRANSFER ACUTE CARE/OTHER HOSP - Home Medications Comprehensive Discharge Medication List: Ambulatory Orders Aspirin [ASA -] 81 mg PO DAILY 06/06/18 Atorvastatin Ca [Lipitor] 20 mg PO DAILY 06/06/18 Carvedilol [Coreg -] 3.125 mg PO BID 06/06/18 Hydrochlorothiazide [Hctz -] 25 mg PO DAILY 06/06/18 Citalopram Hydrobromide [Celexa -] 10 mg PO DAILY tablet 06/20/18 FENTANYL 50mcg PATCH [DURAGESIC 50 mcg PATCH -] 1 patch TD Q72H #0 patch.td72 MDD 1 06/20/18 Nystatin Oral Suspension - [Nystatin Oral Susp [id number] Units/5 ML -] 500,000 units PO Q6HPO cup 06/20/18
[2018-06-22] MEDS: MORPHINE SULFATE 2 MG/ML VIAL IVPUSH PRN (11:50)
[2018-06-22 13:06] LABS: CHOLESTEROL 115 mg/dL (50-200); HDL CHOLESTEROL 37 mg/dL (40-60); TRIGLYCERIDES 119 mg/dL (0-150)
== END 2018-06-22 13:12 | disposition short-term general hospital (02) | DRG 206 ==
LOC: JER 02:54 → JERBED 05:38 → J4W 13:32
PROVIDERS: ADMIT Internal Medicine; ATTEND Internal Medicine
DX: R09.02 Hypoxemia (principal); N17.9 Acute kidney failure, unspecified; G12.21 Amyotrophic lateral sclerosis; E87.0 Hyperosmolality and hypernatremia; R64 Cachexia; I48.92 Unspecified atrial flutter; I45.2 Bifascicular block; R00.0 Tachycardia, unspecified; I45.10 Unspecified right bundle-branch block; I10 Essential (primary) hypertension; I27.20 Pulmonary hypertension, unspecified; J44.9 Chronic obstructive pulmonary disease, unspecified; N28.9 Disorder of kidney and ureter, unspecified; F41.8 Other specified anxiety disorders; R79.89 Other specified abnormal findings of blood chemistry; E86.0 Dehydration; R74.8 Abnormal levels of other serum enzymes; D64.9 Anemia, unspecified; E78.5 Hyperlipidemia, unspecified; N13.9 Obstructive and reflux uropathy, unspecified; Z68.20 Body mass index [BMI] 20.0-20.9, adult; Z66 Do not resuscitate; I48.91 Unspecified atrial fibrillation; R62.7 Adult failure to thrive; Z74.01 Bed confinement status
CPT/HCPCS: 36415; 71045-TC-FY; 80048; 80053; 80061; 82550; 82553; 82962; 83721; 83735; 83880; 84484; 85025; 85610; 86850; 86900; 86901; 93005; 93010; 93306-TC; 99285-25; J1644; J7030